=== PATIENT | female | born 1935 | race Caucasian/White ===

== ENCOUNTER → 2016-07-31 | Outpatient (CLI) | payer OTHER ==
[~2016-07-31] MED LIST: ACET-1256 PO; AMIO200T4 PO; ASPI-435 PO; ASPITAB44 PO; ATV/1 PO; B-COCAP20 PO; B-COCAP21 PO; CALC500C3; CALC500C3 PO; CALC667C4 PO; CARV12.52 PO; CHOLCAP5 PO; CRG125 PO; DOCU-94 PO; EPGI40M INJ; GUAI1LIQ PO; LEVO50TA PO; LEVO75TA PO; SYN50 PO; SYN75 PO
[2016-07-31 11:47] LABS: THYROID STIMULATING HORMONE 5.53 uIu/ml (0.300-4.500)
== END | disposition home or self-care (01) ==
LOC: C.LAB1850 10:14
PROVIDERS: ATTEND Internal Medicine Cardiovascular Disease
DX: I42.9 Cardiomyopathy, unspecified (principal); I48.0 Paroxysmal atrial fibrillation

== ENCOUNTER 2016-09-11 08:38 | Day surgery (SDC) | payer OTHER ==
[~2016-09-11] VITALS: Ht 171.5 cm; Wt 64.0 kg
[~2016-09-11 08:38] MED LIST changes: -ASPI-435 PO; -B-COCAP21 PO; -CALC500C3; -CALC500C3 PO; -CALC667C4 PO; -CARV12.52 PO; +CLINDAMYCIN 600 MG/54 ML D5W IV SCH; +D5W AND 1/4NSS 1,000 ML IV SCH; -DOCU-94 PO; -EPGI40M INJ; -GUAI1LIQ PO; -LEVO50TA PO; -LEVO75TA PO; -SYN75 PO
--- NOTE | 2016-09-11 08:54 | History and Physical ---
History & Physical Date of Service Sep 11, 2016. History & Physical History & Physical Chief Complaint Left forearm AVF, nonmaturing History of Present Illness The patient is a 81 year old female with multiple medical problems, She had a left forearm AV fistula placed. Large braches have developed competing for flow which were ligated in 06/22. Pt seen in f/u and continues to have nonmaturation of AVF, with area of stenosis noted on US. Fistulagram with intervention was recommended. Denies BOOGIE, fever, chills, chest pain, abd pain, N/ V, rest pain, claudication, other complaints. Allergies Amoxicillin (Verified Allergy, Severe, UNKOWN, 02/19/16) Clavulanic Acid (Verified Allergy, Severe, UNKOWN, 02/19/16) Nortriptyline (Verified Allergy, Severe, UNKNOWN, 02/19/16) Aloe (Verified Allergy, Intermediate, rash, 03/09/16) Amitriptyline (Verified Allergy, Unknown, unknown, 02/19/16) Amlodipine (Verified Allergy, Unknown, UNKNOWN, 03/09/16) Atorvastatin (Verified Allergy, Unknown, 02/19/16) Azathioprine (Verified Allergy, Unknown, 02/19/16) Barbiturates (Verified Allergy, Unknown, TAKES DARVOCET AT HOME, 02/19/16) Beta Adrenergic Blockers (Verified Allergy, Unknown, -, 02/19/16) Butalbital (Verified Allergy, Unknown, TAKES DARVOCET AT HOME, 02/19/16) Cefaclor (Verified Allergy, Unknown, RECEIVED ANCEF PREOP IN OR (08/05/12) , 02/19/16) Cefuroxime (Unverified Allergy, Unknown, UNKNOWN, 03/08/16) Cephalosporins (Verified Allergy, Unknown, 02/19/16) Chlorpheniramine (Verified Allergy, Unknown, 02/19/16) Cholestyramine (Verified Allergy, Unknown, 02/19/16) Ciprofloxacin (Verified Allergy, Unknown, redness and swelling, 02/19/16) Clonidine (Verified Allergy, Unknown, unknown, 02/19/16) Codeine (Verified Allergy, Unknown, TAKES DARVOCET AT HOME, 02/19/16) Dextromethorphan (Verified Allergy, Unknown, TAKES DARVOCET AT HOME, ) Diltiazem (Verified Allergy, Unknown, 02/19/16) Escitalopram (Verified Allergy, Unknown, 02/19/16) Estrogens (Verified Allergy, Unknown, 02/19/16) Felodipine (Verified Allergy, Unknown, 02/19/16) Ferrous Sulfate (Verified Allergy, Unknown, UNKNOWN, 03/09/16) Hydralazine (Verified Allergy, Unknown, unknown, 02/19/16) Hydrochlorothiazide (Verified Allergy, Unknown, 02/19/16) Hydrocodone (Verified Allergy, Unknown, TAKES DARVOCET AT HOME, 02/19/16) Hydrocortisone (Verified Allergy, Unknown, unknown, 02/19/16) Hydromorphone (Verified Allergy, Unknown, unknown, 02/19/16) Ibuprofen (Verified Allergy, Unknown, TAKES EC ASA AT HOME, 02/19/16) Indapamide (Verified Allergy, Unknown, 02/19/16) Ipratropium (Verified Allergy, Unknown, UNKNOWN, 03/09/16) Isosorbide (Verified Allergy, Unknown, UNKNOWN, 03/09/16) Ketoconazole (Verified Allergy, Unknown, unknown, 02/19/16) Lisinopril (Verified Allergy, Unknown, 02/19/16) Losartan (Verified Allergy, Unknown, 02/19/16) Mesalamine (Verified Allergy, Unknown, 02/19/16) Methyltestosterone (Verified Allergy, Unknown, 02/19/16) Metoprolol (Verified Allergy, Unknown, 02/19/16) NSAIDs (Verified Allergy, Unknown, though takes ecotrin at home, 03/09/16) Olsalazine (Verified Allergy, Unknown, 02/19/16) Phenylpropanolamine (Verified Allergy, Unknown, 02/19/16) Pilocarpine (Verified Allergy, Unknown, UNKNOWN, 03/09/16) Progestins (Verified Allergy, Unknown, 02/19/16) Propranolol (Verified Allergy, Unknown, UNKNOWN, 03/09/16) Propylene Glycol (Verified Allergy, Unknown, 02/19/16) Rabeprazole (Verified Allergy, Unknown, 02/19/16) Sertraline (Verified Allergy, Unknown, UNKNOWN, 03/09/16) Simvastatin (Verified Allergy, Unknown, 02/19/16) Sulfa Antibiotics (Verified Allergy, Unknown, UNKNOWN, 03/09/16) Sulfacetamide (Verified Allergy, Unknown, 02/19/16) Sulfur (Verified Allergy, Unknown, 02/19/16) Terazosin (Verified Allergy, Unknown, 02/19/16) Terfenadine (Verified Allergy, Unknown, 02/19/16) Torsemide (Unverified Allergy, Unknown, UNKNOWN, 03/08/16) Tramadol (Verified Allergy, Unknown, unknown, 02/19/16) Triamterene (Verified Allergy, Unknown, 02/19/16) Verapamil (Verified Allergy, Unknown, 02/19/16) Calcium Acetate (Verified Adverse Reaction, Mild, CONSTIPATION, 03/09/16) Uncoded Allergies: XANTHINE (Allergy, Unknown, TAKES DARVOCET AT HOME, 04/10/14) PT CLAIMS SHE CAN TOLERATE CAFFEINE Home Medications Scheduled Acetaminophen (Tylenol), 500 MG PO PRN Amiodarone Hcl (Cordarone), 200 MG PO DAILY Amlodipine Besylate (Norvasc), 2.5 MG PO DAILY Bumetanide (Bumetanide), 2 TABS PO BID Carvedilol (Coreg), 6.25 MG PO BID Cholecalciferol (Vitamin D3), 1 CAP PO DAILY Epoetin Jose R (Procrit), 40,000 UNIT INJ EVERY OTHER WEEK Levothyroxine Sodium (Synthroid), 25 MCG PO QAM Lorazepam (Ativan), 1 MG PO BID Scheduled PRN [id number]-Mdvpzkqx (Migraine Relief), 1 TAB PO UD PRN for MATTHEW Problem List Medical Problems: (1) Acute on chronic kidney failure (2) Anemia (3) Chest pain (4) Dysphagia (5) Hypertension (6) Secondary hyperparathyroidism of renal origin (7) Squamous cell carcinoma (8) Tonsil cancer Surgical / Medical History Hx Cardiac Surgery: No Hx Abdominal Surgery: Yes (cholecystectomy, appendectomy, spleenectomy, pancreas cyst, hernia) Hx Cancer Surgery: No Hx Thoracic Surgery: No Hx Orthopedic: Yes (BUNIONECTOMY) Hx Urinary Tract Surgery: No Past Medical/Surgical History: Hypertension, Kidney Disease Family History Cancer Gallbladder disease Hypertension Social History Smoking Status: Never Smoker Hx Tobacco Use In Past Year?: No Hx Alcohol Use - Type & Amnt: No Hx Substance Use -Type & Amnt: No Review of Systems Constitutional: + malaise, No chills, No fever Skin: No change in color Eyes: No visual changes ENMT: No sore throat Respiratory: no complaints Cardiovascular: + edema, No chest pain, No intermittent claudication, No palpitations, No syncope Gastrointestinal: No abdominal pain, No nausea, No vomiting Genitourinary - Female: No dysuria, No hematuria Neurologic: No headache, No numbness, No weakness Physical Exam Constitutional: General Apperance: well-nourished, well-developed, too thin Level of Distress: NAD, chronically ill Psychiatric: Mental Status: active & alert, normal mood, normal affect Orientation: oriented except where noted, to time, to place, to person Memory: recent memory normal, remote memory normal Head: normocephalic, atraumatic Eyes: EOM: EOMI ENMT: normal ENT inspection, hearing grossly normal Neck: supple, trachea midline Lungs: Respiratory effort: no dyspnea Auscultation: no wheezing, no rhonchi, Cardiovascular: Apical Impulse: not displaced Heart Auscultation: RRR, no rubs, no gallops, murmur Peripheral Pulses: Pulses: full and equal, in all extremities except if noted Bruits: none appreciated Carotid Pulse: normal on the left, normal on the right Brachial Pulses: normal on the left, normal on the right Radial Pulse: normal on the left, normal on the right Femoral Pulse: normal on the left, normal on the right Posterior Tibialis Pulse: decreased on the left, decreased on the right Dorsalis Pedis Pulse: decreased on the left, decreased on the right Abdomen: Bowel Sounds: normal Inspection & Palpation: soft, non-distended, no tenderness, guarding & rebound Musculoskeletal: normal strength (5/5 throughout), normal tone Extremities: Upper Right: no cyanosis, no edema, no varicosities Upper Left: no cyanosis, no edema, no varicosities Lower Right: no cyanosis, no varicosities, edema (trace) Lower Left: no cyanosis, no varicosities, no palpable cord, edema (trace). fistula with + thrill/bruit Neurologic: Cranial Nerves: grossly intact Sensation: grossly intact A&P: Vascular Con v2 Assessment and Plan ASSESSMENT and PLAN: Imp: Malfunctioning/nonmaturing fistula Plan: Patient is admitted for L forearm AV fistulagram with intervention. I have discussed the risks options and benefits of the procedure with the patient. The patient understands the risks options and benefits and agrees to the procedure.
[2016-09-11] MEDS ORDERED: CALC667C4 PO (09:26)
[2016-09-11] MEDS ORDERED: DOCU-94 PO (09:26)
[2016-09-11] MEDS ORDERED: ASPI-435 PO (09:26)
[2016-09-11] MEDS ORDERED: CALC500C3 (09:26)
[2016-09-11 09:29] VITALS: BP 130/61; PULSE 63; TEMP 36.9; O2SAT 97; Ht 171.5 cm; Wt 64.0 kg
--- NOTE | 2016-09-11 10:42 | History and Physical ---
History & Physical Date of Service Sep 11, 2016. History & Physical Left forearm fistula with malfunction History of Present Illness The patient is a 81 year old female with multiple medical problems, She had a left forearm fistula placed. She had ligation of side branches and still is not running well. Denies BOOGIE, fever, chills, chest pain, abd pain, N/V, rest pain, claudication, other complaints. Allergies Amoxicillin (Verified Allergy, Severe, UNKOWN, 02/19/16) Clavulanic Acid (Verified Allergy, Severe, UNKOWN, 02/19/16) Nortriptyline (Verified Allergy, Severe, UNKNOWN, 02/19/16) Aloe (Verified Allergy, Intermediate, rash, 03/09/16) Amitriptyline (Verified Allergy, Unknown, unknown, 02/19/16) Amlodipine (Verified Allergy, Unknown, UNKNOWN, 03/09/16) Atorvastatin (Verified Allergy, Unknown, 02/19/16) Azathioprine (Verified Allergy, Unknown, 02/19/16) Barbiturates (Verified Allergy, Unknown, TAKES DARVOCET AT HOME, 02/19/16) Beta Adrenergic Blockers (Verified Allergy, Unknown, -, 02/19/16) Butalbital (Verified Allergy, Unknown, TAKES DARVOCET AT HOME, 02/19/16) Cefaclor (Verified Allergy, Unknown, RECEIVED ANCEF PREOP IN OR (08/05/12) , 02/19/16) Cefuroxime (Unverified Allergy, Unknown, UNKNOWN, 03/08/16) Cephalosporins (Verified Allergy, Unknown, 02/19/16) Chlorpheniramine (Verified Allergy, Unknown, 02/19/16) Cholestyramine (Verified Allergy, Unknown, 02/19/16) Ciprofloxacin (Verified Allergy, Unknown, redness and swelling, 02/19/16) Clonidine (Verified Allergy, Unknown, unknown, 02/19/16) Codeine (Verified Allergy, Unknown, TAKES DARVOCET AT HOME, 02/19/16) Dextromethorphan (Verified Allergy, Unknown, TAKES DARVOCET AT HOME, ) Diltiazem (Verified Allergy, Unknown, 02/19/16) Escitalopram (Verified Allergy, Unknown, 02/19/16) Estrogens (Verified Allergy, Unknown, 02/19/16) Felodipine (Verified Allergy, Unknown, 02/19/16) Ferrous Sulfate (Verified Allergy, Unknown, UNKNOWN, 03/09/16) Hydralazine (Verified Allergy, Unknown, unknown, 02/19/16) Hydrochlorothiazide (Verified Allergy, Unknown, 02/19/16) Hydrocodone (Verified Allergy, Unknown, TAKES DARVOCET AT HOME, 02/19/16) Hydrocortisone (Verified Allergy, Unknown, unknown, 02/19/16) Hydromorphone (Verified Allergy, Unknown, unknown, 02/19/16) Ibuprofen (Verified Allergy, Unknown, TAKES EC ASA AT HOME, 02/19/16) Indapamide (Verified Allergy, Unknown, 02/19/16) Ipratropium (Verified Allergy, Unknown, UNKNOWN, 03/09/16) Isosorbide (Verified Allergy, Unknown, UNKNOWN, 03/09/16) Ketoconazole (Verified Allergy, Unknown, unknown, 02/19/16) Lisinopril (Verified Allergy, Unknown, 02/19/16) Losartan (Verified Allergy, Unknown, 02/19/16) Mesalamine (Verified Allergy, Unknown, 02/19/16) Methyltestosterone (Verified Allergy, Unknown, 02/19/16) Metoprolol (Verified Allergy, Unknown, 02/19/16) NSAIDs (Verified Allergy, Unknown, though takes ecotrin at home, 03/09/16) Olsalazine (Verified Allergy, Unknown, 02/19/16) Phenylpropanolamine (Verified Allergy, Unknown, 02/19/16) Pilocarpine (Verified Allergy, Unknown, UNKNOWN, 03/09/16) Progestins (Verified Allergy, Unknown, 02/19/16) Propranolol (Verified Allergy, Unknown, UNKNOWN, 03/09/16) Propylene Glycol (Verified Allergy, Unknown, 02/19/16) Rabeprazole (Verified Allergy, Unknown, 02/19/16) Sertraline (Verified Allergy, Unknown, UNKNOWN, 03/09/16) Simvastatin (Verified Allergy, Unknown, 02/19/16) Sulfa Antibiotics (Verified Allergy, Unknown, UNKNOWN, 03/09/16) Sulfacetamide (Verified Allergy, Unknown, 02/19/16) Sulfur (Verified Allergy, Unknown, 02/19/16) Terazosin (Verified Allergy, Unknown, 02/19/16) Terfenadine (Verified Allergy, Unknown, 02/19/16) Torsemide (Unverified Allergy, Unknown, UNKNOWN, 03/08/16) Tramadol (Verified Allergy, Unknown, unknown, 02/19/16) Triamterene (Verified Allergy, Unknown, 02/19/16) Verapamil (Verified Allergy, Unknown, 02/19/16) Calcium Acetate (Verified Adverse Reaction, Mild, CONSTIPATION, 03/09/16) Uncoded Allergies: XANTHINE (Allergy, Unknown, TAKES DARVOCET AT HOME, 04/10/14) PT CLAIMS SHE CAN TOLERATE CAFFEINE Home Medications Scheduled Acetaminophen (Tylenol), 500 MG PO PRN Amiodarone Hcl (Cordarone), 200 MG PO DAILY Amlodipine Besylate (Norvasc), 2.5 MG PO DAILY Bumetanide (Bumetanide), 2 TABS PO BID Carvedilol (Coreg), 6.25 MG PO BID Cholecalciferol (Vitamin D3), 1 CAP PO DAILY Epoetin Jose R (Procrit), 40,000 UNIT INJ EVERY OTHER WEEK Levothyroxine Sodium (Synthroid), 25 MCG PO QAM Lorazepam (Ativan), 1 MG PO BID Scheduled PRN [id number]-[id number] (Migraine Relief), 1 TAB PO UD PRN for MATTHEW Problem List Medical Problems: (1) Acute on chronic kidney failure (2) Anemia (3) Chest pain (4) Dysphagia (5) Hypertension (6) Secondary hyperparathyroidism of renal origin (7) Squamous cell carcinoma (8) Tonsil cancer Surgical / Medical History Hx Cardiac Surgery: No Hx Abdominal Surgery: Yes (cholecystectomy, appendectomy, spleenectomy, pancreas cyst, hernia) Hx Cancer Surgery: No Hx Thoracic Surgery: No Hx Orthopedic: Yes (BUNIONECTOMY) Hx Urinary Tract Surgery: No Past Medical/Surgical History: Hypertension, Kidney Disease Family History Cancer Gallbladder disease Hypertension Social History Smoking Status: Never Smoker Hx Tobacco Use In Past Year?: No Hx Alcohol Use - Type & Amnt: No Hx Substance Use -Type & Amnt: No Review of Systems Constitutional: + malaise, No chills, No fever Skin: No change in color Eyes: No visual changes ENMT: No sore throat Respiratory: no complaints Cardiovascular: + edema, No chest pain, No intermittent claudication, No palpitations, No syncope Gastrointestinal: No abdominal pain, No nausea, No vomiting Genitourinary - Female: No dysuria, No hematuria Neurologic: No headache, No numbness, No weakness Physical Exam Constitutional: General Apperance: well-nourished, well-developed, too thin Level of Distress: NAD, chronically ill Psychiatric: Mental Status: active & alert, normal mood, normal affect Orientation: oriented except where noted, to time, to place, to person Memory: recent memory normal, remote memory normal Head: normocephalic, atraumatic Eyes: EOM: EOMI ENMT: normal ENT inspection, hearing grossly normal Neck: supple, trachea midline Lungs: Respiratory effort: no dyspnea Auscultation: no wheezing, no rhonchi, Cardiovascular: Apical Impulse: not displaced Heart Auscultation: RRR, no rubs, no gallops, murmur Peripheral Pulses: Pulses: full and equal, in all extremities except if noted Bruits: none appreciated Carotid Pulse: normal on the left, normal on the right Brachial Pulses: normal on the left, normal on the right Radial Pulse: normal on the left, normal on the right Femoral Pulse: normal on the left, normal on the right Posterior Tibialis Pulse: decreased on the left, decreased on the right Dorsalis Pedis Pulse: decreased on the left, decreased on the right Abdomen: Bowel Sounds: normal Inspection & Palpation: soft, non-distended, no tenderness, guarding & rebound Musculoskeletal: normal strength (5/5 throughout), normal tone Extremities: Upper Right: no cyanosis, no edema, no varicosities Upper Left: no cyanosis, no edema, no varicosities Lower Right: no cyanosis, no varicosities, edema (trace) Lower Left: no cyanosis, no varicosities, no palpable cord, edema (trace). fistula with good thrill Neurologic: Cranial Nerves: grossly intact Sensation: grossly intact A&P: Vascular Con v2 Assessment and Plan ASSESSMENT and PLAN: Imp: Malfunctioning fistula Plan: Patient is admitted for a fistulogram with possible intervention. I have discussed the risks options and benefits of the procedure with the patient. The patient understands the risks options and benefits and agrees to the procedure.
--- NOTE | 2016-09-11 11:13 | History & Physical Bridge Note ---
H&P Re-Evaluation Bridge Note: I have examined the patient, reviewed the History & Physical and in the interval since the performance of the History & Physical I have noted the following changes of clinical significance: No changes noted
--- NOTE | 2016-09-11 11:14 | Procedure Note ---
Pre-Mod Sedation Assessment General Date of Moderate Sedation: Sep 11, 2016. Vital Signs: Vital Signs Past 12 Hours Date Time Temp Pulse Resp B/P Pulse Ox O2 Delivery O2 Flow Rate FiO2 09/11/16 09:29 36.9 63 20 130/61 97 Room Air Pre-Sedation Airway Assessment Oral Cavity: WNL Smoking Status: Never Smoker Mallampati Classification: Class I ASA Classification: Class II Notes The planned sedation has been discussed with the patient and consent obtained. I have identified the patient, determined the appropriateness of sedation and have assessed the patient immediately prior to the procedure. All medicine(s) and interventions are by my order.
[2016-09-11] MEDS ORDERED: FENTANYL CITRATE INJ 50 MCG/1 ML 2 ML VIAL ONE (12:02)
[2016-09-11] MEDS ORDERED: OPTIRAY 300 IV ONE (12:41)
[2016-09-11] MEDS ORDERED: LIDOCAINE HCL 1% 20 ML VIAL INJ ONE (12:48)
--- NOTE | 2016-09-11 12:49 | [facility] Post Operative Brief Note ---
Immediate Operative Summary Operative Date Sep 11, 2016. Pre-Operative Diagnosis Malfunctioning Fistula Post-Operative Diagnosis Same Procedure(s) Performed Left upper Extremity Arteriogram Surgeon Dr. Alonso [employer] Surgeon(s) Dr. Caputo Estimated Blood Loss 3 Findings Occluded fistula Specimens None Anesthesia Local Complication(s) None Disposition
--- NOTE | 2016-09-11 12:50 | Discharge Instructions ---
Discharge Instructions Date of Service Sep 11, 2016. Visit Reason for Visit: End Stage Renal Disease -On Hemodialysis Discharge Discharge Diagnosis / Problem: Malfunctioning fistula Discharge Goals Goal(s): Diagnostic testing Activity Recommendations Activity Limitations: per Instructions/Follow-up section Anesthesia . Post Anesthesia Instructions: If you have had General Anesthesia or IV Sedation: * Do not drive today. * Resume driving when surgeon permits. * Do not make important decisions or sign legal documents today. * Call surgeon for: 1. Temperature elevations greater than 101 degrees F. 2. Uncontrollable pain. 3. Excessive bleeding. 4. Persistent nausea and vomiting. 5. Medication intolerance (nausea, vomiting or rash). * For nausea and vomiting use only clear liquids such as: tea, soda, bouillon until nausea subsides, then gradually increase diet as tolerated. * If you have any concerns or questions, call your surgeon's office. If physician is unavailable and it is an emergency, call 911 or go to the nearest emergency room. . Instructions / Follow-Up Instructions / Follow-Up Call [phone] to schedule a follow up appointment if one not already scheduled. SPECIAL CARE INSTRUCTIONS: Medications: * Continue to take your medications as directed. If you have been given a prescription for Plavix, please fill it immediately and take as directed. Incision Care: * Your puncture site may have some bruising and minor swelling for about one week. * You will have a small dressing covering your puncture site. You may remove the dressing after 24 hours and shower. You may let the warm soapy water run over it, but be sure to dry the puncture site well and keep it dry. * DO NOT IMMERSE THE INCISION IN A TUB/POOL/etc. UNTIL HEALED. * Puncture sites should be kept covered with a band-aid until it begins to heal. Restrictions: * Depending on whether you leg or arm was punctured to access the arteries, you will be required to lay flat, hold your arm still, or both, for about 4 hours after the procedure to prevent bleeding. * Limit your activity for the first 48 hours. You may walk and go up and down steps. Avoid excessive bending or movement at the puncture site. Possible Complications: * Excessive Swelling - after blood flow is improved you may notice increased swelling in the lower legs. This is a normal response. This usually depends on the amount of blockages in the leg, how long they have been there prior to your procedure and how much blood flow was restored. Elevating your legs will help to improve this. Please notify our office ([phone] ) if the swelling does not go away after lying in bed overnight. * Infection/Drainage/Bleeding - Drainage or bleeding from the puncture site should be minimal. If you have excessive bleeding or drainage, call our office ([phone]) right away. * Pain - You may experience some mild pain or soreness at your puncture site. If your pain does not improve, please contact our office ([phone]). Call your doctor and seek emergent treatment if you develop: * Temperature above 101 degrees * Any fever or chills * Any redness or purulent drainage from the puncture site * Any new dusky/blue colored toes or feet with coolness or sharp or aching pain. SKIN IRRITATION: * You may experience some redness and/or swelling in the area where radiation was administered. If any skin irritation occurs, please contact your family physician. FOLLOW UP VISIT: Keep any scheduled doctor appointments. Diet Recommendations Recommended Home Diet: resume previous diet Procedures Procedures Performed: Left upper Extremity Arteriogram Pending Studies Studies pending at discharge: no Medical Emergencies . Who to Call and When: Medical Emergencies: If at any time you feel your situation is an emergency, please call 911 immediately. . Non-Emergent Contact Non-Emergency issues call your: Surgeon . . "Provider Documentation" section prepared by Duke Alonso.
[2016-09-11 13:10] VITALS: BP 137/60; PULSE 68; TEMP 37.4; O2SAT 95
[2016-09-11 13:40] VITALS: BP 130/61; PULSE 63; TEMP 37.4; O2SAT 91
[2016-09-11 14:10] VITALS: BP 119/49; PULSE 64; TEMP 37.4; O2SAT 92
--- NOTE | 2016-09-11 14:52 | DIAGNOSTIC IMAGING REPORT ---
DATE OF PROCEDURE: 09/11/2016 PREOPERATIVE DIAGNOSIS: Malfunctioning left upper extremity AV fistula. POSTOPERATIVE DIAGNOSIS: Same. PROCEDURE PERFORMED: Left upper extremity arteriogram. SURGEON: Dr. Alonso. PEDIATRICIAN/MEDICAL DOCTOR: Thiago Caputo MD ANESTHESIA: Local anesthesia only. ESTIMATED BLOOD LOSS: 2 mL. INDICATIONS: This is a 81-year-old female who has had a previous left upper extremity radiocephalic AV fistula. Unfortunately, this fistula was not able to be used. It did not mature. There was no thrill or bruit in the fistula. Arteriogram was indicated to evaluate the vasculature of the left arm. PROCEDURE IN DETAIL: The patient was brought to the endo procedure room and placed in the supine position. Left upper extremity was prepped and draped in the normal sterile fashion. A timeout was performed and all parties agreed to correct patient and procedure to be performed. The brachial artery was easily palpable just below the skin at the level of the antecubital fossa. This was accessed on the first attempt with a micropuncture needle. This was upsized to micropuncture sheath over the wire. A left upper extremity arteriogram was then performed. This showed a patent ulnar artery with stenosis at the proximal aspect. There was a large collateral which traveled down the lateral portion of the arm. The radial artery filled late. There was also a large interosseous branch. There was no venous flow at all noted. The fistula was completely thrombosed. Given that there were no intervention options, we elected to terminate the procedure at this point. The patient will need a repeat AV fistula creation. The sheaths, wires and catheters were all removed. Pressure was held on the access site. Unfortunately, she did develop a small left arm hematoma just distal to the access site. She had no arm complaints or symptoms. This area was soft. Pressure was held and the hematoma decreased in size. She was transferred to the recovery room in satisfactory condition. I was present and scurbbed for the entire procedure. [facility]
[2016-09-11 15:10] VITALS: BP 113/55; PULSE 59; TEMP 37.3; O2SAT 93
[2016-10-13] MEDS ORDERED: SYN50 PO (15:03)
[2016-10-13] MEDS ORDERED: CRG125 PO (15:03)
[2016-10-13] MEDS ORDERED: SYN75 PO (15:03)
[2016-12-11] MEDS ORDERED: CALC500C3 PO (08:04)
== END 2016-09-11 15:30 | disposition home or self-care (01) ==
LOC: C.ACU 08:38
PROVIDERS: ATTEND Surgery Vascular Surgery
DX: T82.598A Other mechanical complication of other cardiac and vascular devices and implants, initial encounter (principal); Y83.2 Surgical operation with anastomosis, bypass or graft as the cause of abnormal reaction of the patient, or of later complication, without mention of misadventure at the time of the procedure; I12.9 Hypertensive chronic kidney disease with stage 1 through stage 4 chronic kidney disease, or unspecified chronic kidney disease; N18.9 Chronic kidney disease, unspecified; I97.638 Postprocedural hematoma of a circulatory system organ or structure following other circulatory system procedure; Z79.899 Other long term (current) drug therapy

== ENCOUNTER 2016-10-03 16:27 | Inpatient (IN) | payer OTHER ==
[~2016-10-03] VITALS: Ht 172.7 cm; Wt 64.1 kg
[~2016-10-03 16:27] MED LIST changes: +ASPI-435 PO; +CALC500C3; +CALC667C4 PO; -CLINDAMYCIN 600 MG/54 ML D5W IV SCH; -D5W AND 1/4NSS 1,000 ML IV SCH; +DOCU-94 PO
[2016-10-03 17:56] LABS: BASO % 0.3 %; BASO ABS # 0.02 K/uL (0-0.2); COMPLETE YES; EOS % 1.1 %; HEMATOCRIT 33.4 % (37-47); IG% 0.3 %; LYMPH % 14.7 %; LYMPH ABS # 0.93 K/uL (1.2-3.4); MEAN CELL VOLUME 87.7 fL (80-100); MEAN CORPUSCULAR HEMOGLOBIN 29.1 pg (25-34); MEAN CORPUSCULAR HGB CONC 33.2 g/dl (32-36); MONO % 18.9 %; NEUT % 64.7 %; PLATELET COUNT 433 K/uL (130-400); RED BLOOD COUNT 3.81 M/uL (4.2-5.4); WHITE BLOOD COUNT 6.31 K/uL (4.8-10.8)
--- NOTE | 2016-10-03 18:11 | DIAGNOSTIC IMAGING REPORT ---
CHEST 2 VIEWS ROUTINE CLINICAL HISTORY: cough eval for pnea dyspnea COMPARISON STUDY: 03/21/2016 FINDINGS: Bilateral pleural effusions. PermCath in superior vena cava. Mid and upper lungs are considered clear. IMPRESSION: Bilateral pleural effusions. Study is otherwise unremarkable. Electronically signed by: Mina Dickson M.D. 10/03/2016 6:10 PM Dictated Date/Time: 10/03/2016 6:09 PM
[2016-10-03] MEDS ORDERED: GUAI1LIQ PO (18:12)
[2016-10-03] MEDS ORDERED: EPGI40M INJ (18:12)
[2016-10-03] MEDS ORDERED: B-COCAP21 PO (18:12)
[2016-10-03 18:42] LABS: BUN/CREATININE RATIO 5.3 (10-20); CALCIUM 9.8 mg/dl (8.5-10.1); CREATININE 5.9 mg/dl (0.60-1.20); POTASSIUM 4.5 mmol/L (3.5-5.1)
[2016-10-03 19:44] LABS: INR 1.1 (0.9-1.1); PARTIAL THROMBOPLASTIN RATIO 1.3; PROTHROMBIN TIME (PATIENT) 12.1 SECONDS (9.0-12.0)
[2016-10-03] MEDS ORDERED: ZOLPIDEM TARTRATE 5 MG TAB PO PRN (21:15)
[2016-10-03] MEDS ORDERED: ONDANSETRON INJ 2 MG/ML 2 ML VIAL IV PRN (21:15)
[2016-10-03 21:50] LABS: CKMB/CK RATIO 1.7 (0-3.0)
--- NOTE | 2016-10-03 22:25 | History and Physical ---
History & Physical Date & Time of Service: Oct 03, 2016 at 22:26 Chief Complaint: Chest Tightness, Shallow Breathing, Dry Cough Primary Care Physician: Jose Guardado M.D. History of Present Illness Source: patient The patient is a 81-year-old female who presents to the emergency department with worsening chest tightness and shortness of breath, that initially began a few weeks ago, but has worsened in particular over the past 2 days along with the development of a dry cough and difficulty lying flat. She does have a history of congestive heart failure, acute on chronic kidney failure, and undergoes dialysis on Mondays and Fridays. She has not had any recent travel, dietary changes or sick exposures. She does feel generally weakened and fatigued. She does see Dr. Solorzano as her post manager, and she has undergone a thoracentesis in the past by Dr. Manley. 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 Radiation completed 01/10/2014 received 7200 cGy Status: Resolved Family History Cancer Gallbladder disease Hypertension Social History Smoking Status: Never Smoker Smokeless Tobacco Use: No Alcohol Use: none Drug Use: none Marital Status: Housing status: lives alone Occupational Status: retired Immunizations History of Influenza Vaccine: Yes History of Tetanus Vaccine?: utd History of Pneumococcal: Yes History of Hepatitis B Vaccine: Unknown Multi-Drug Resistant Organisms History of MDRO: No Allergies Coded Allergies: Amoxicillin (Verified Allergy, Severe, UNKOWN, 10/03/16) Clavulanic Acid (Verified Allergy, Severe, UNKOWN, 10/03/16) Nortriptyline (Verified Allergy, Severe, UNKNOWN, 10/03/16) Aloe (Verified Allergy, Intermediate, rash, 10/03/16) Amitriptyline (Verified Allergy, Unknown, unknown, 10/03/16) Amlodipine (Verified Allergy, Unknown, UNKNOWN, 10/03/16) Atorvastatin (Verified Allergy, Unknown, 10/03/16) Azathioprine (Verified Allergy, Unknown, 10/03/16) Barbiturates (Verified Allergy, Unknown, TAKES DARVOCET AT HOME, 10/03/16) Beta Adrenergic Blockers (Verified Allergy, Unknown, -, 10/03/16) Butalbital (Verified Allergy, Unknown, TAKES DARVOCET AT HOME, 10/03/16) Cefaclor (Verified Allergy, Unknown, RECEIVED ANCEF PREOP IN OR (08/05/12) , 10/03/16) Cefuroxime (Unverified Allergy, Unknown, UNKNOWN, 10/03/16) Cephalosporins (Verified Allergy, Unknown, 10/03/16) Chlorpheniramine (Verified Allergy, Unknown, 10/03/16) Cholestyramine (Verified Allergy, Unknown, 10/03/16) Ciprofloxacin (Verified Allergy, Unknown, redness and swelling, 10/03/16) Clonidine (Verified Allergy, Unknown, unknown, 10/03/16) Codeine (Verified Allergy, Unknown, TAKES DARVOCET AT HOME, 10/03/16) Dextromethorphan (Verified Allergy, Unknown, TAKES DARVOCET AT HOME, ) Diltiazem (Verified Allergy, Unknown, 10/03/16) Escitalopram (Verified Allergy, Unknown, 10/03/16) Estrogens (Verified Allergy, Unknown, 10/03/16) Felodipine (Verified Allergy, Unknown, 10/03/16) Ferrous Sulfate (Verified Allergy, Unknown, UNKNOWN, 10/03/16) Hydralazine (Verified Allergy, Unknown, unknown, 10/03/16) Hydrochlorothiazide (Verified Allergy, Unknown, 10/03/16) Hydrocodone (Verified Allergy, Unknown, TAKES DARVOCET AT HOME, 10/03/16) Hydrocortisone (Verified Allergy, Unknown, unknown, 10/03/16) Hydromorphone (Verified Allergy, Unknown, unknown, 10/03/16) Ibuprofen (Verified Allergy, Unknown, TAKES EC ASA AT HOME, 10/03/16) Indapamide (Verified Allergy, Unknown, 10/03/16) Ipratropium (Verified Allergy, Unknown, UNKNOWN, 10/03/16) Isosorbide Nitrate (Verified Allergy, Unknown, UNKNOWN, 10/03/16) Ketoconazole (Verified Allergy, Unknown, unknown, 10/03/16) Lisinopril (Verified Allergy, Unknown, 10/03/16) Losartan (Verified Allergy, Unknown, 10/03/16) Mesalamine (Verified Allergy, Unknown, 10/03/16) Methyltestosterone (Verified Allergy, Unknown, 10/03/16) Metoprolol (Verified Allergy, Unknown, 10/03/16) NSAIDs (Verified Allergy, Unknown, though takes ecotrin at home, 10/03/16) Olsalazine (Verified Allergy, Unknown, 10/03/16) Phenylpropanolamine (Verified Allergy, Unknown, 10/03/16) Pilocarpine (Verified Allergy, Unknown, UNKNOWN, 10/03/16) Progestins (Verified Allergy, Unknown, 10/03/16) Propranolol (Verified Allergy, Unknown, UNKNOWN, 10/03/16) Propylene Glycol (Verified Allergy, Unknown, 10/03/16) Rabeprazole (Verified Allergy, Unknown, 10/03/16) Sertraline (Verified Allergy, Unknown, UNKNOWN, 10/03/16) Simvastatin (Verified Allergy, Unknown, 10/03/16) Sulfa Antibiotics (Verified Allergy, Unknown, UNKNOWN, 10/03/16) Sulfacetamide (Verified Allergy, Unknown, 10/03/16) Sulfur (Verified Allergy, Unknown, 10/03/16) Terazosin (Verified Allergy, Unknown, 10/03/16) Terfenadine (Verified Allergy, Unknown, 10/03/16) Torsemide (Unverified Allergy, Unknown, UNKNOWN, 10/03/16) Tramadol (Verified Allergy, Unknown, unknown, 10/03/16) Triamterene (Verified Allergy, Unknown, 10/03/16) Verapamil (Verified Allergy, Unknown, 10/03/16) Calcium Acetate (Verified Adverse Reaction, Mild, CONSTIPATION, 10/03/16) Uncoded Allergies: XANTHINE (Allergy, Unknown, TAKES DARVOCET AT HOME, 04/10/14) PT CLAIMS SHE CAN TOLERATE CAFFEINE Home Medications Scheduled Amiodarone Hcl (Cordarone), 200 MG PO QAM Aspirin (Aspirin 81), 81 MG PO QAM B-Complex W/ C & Folic Acid (Rampart Caps), 2 CAP PO QAM Calcium Acetate (Phoslo 667 Mg), 2 CAP PO TID AFTER MEALS Cholecalciferol (Vitamin D3), 1 CAP PO QAM Docusate Sodium (Colace), 1 CAP PO QPM Scheduled PRN Acetaminophen (Tylenol), 500 MG PO DIRECTED PRN for Pain Mnvkjnc-Vvpoygmfdctyh-Qfojhseo (Migraine Relief), 1 TAB PO UD PRN for Migraine Epoetin Jose R (Procrit), 40,000 UNITS INJ DIRECTED PRN for DIALYSIS Guaifenesin (Robitussin Mucus+Chest Co), 1 DOSE PO DIRECTED PRN for Cough Lorazepam (Ativan), 1 MG PO TID PRN for Anxiety/Agitation Review of Systems The patient denies palpitations, vision change, hearing change, sore throat, fevers, chills, sweats, nausea, vomiting, abdominal pain, pelvic pain, blood in urine or stool, dysuria, urinary frequency or urgency, lightheadedness, dizziness, headache, memory loss, rash, abnormal bruising or bleeding, imbalance , focal weakness, numbness or tingling in arms or legs, arthralgias or myalgias , back or neck pain, night sweats, or allergy symptoms. The review of systems is otherwise negative other than for that already noted above, and at least 10 systems have been reviewed. Physical Exam Vital Signs Date Time Temp Pulse Resp B/P Pulse Ox O2 Delivery O2 Flow Rate FiO2 10/03/16 21:53 62 23 128/74 96 Room Air 10/03/16 20:08 65 10/03/16 19:53 64 16 148/93 96 Room Air 10/03/16 18:25 62 16 142/102 95 Room Air 10/03/16 17:55 95 Room Air 10/03/16 16:31 36.5 62 20 125/77 96 Room Air 10/03/16 16:31 96 Room Air The patient is awake, well-developed and adequately nourished, alert and oriented 3, normocephalic and atraumatic, lying in bed and in no acute distress. HEENT--PERRL, EOMI, mucous membranes and oropharynx dry. Neck--supple, no JVD or bruits, thyroid normal, trachea midline, no adenopathy. Heart--normal S1 and S2, no extra beats, no murmurs, rubs or gallops. Lungs--decreased breath sounds at the bases bilaterally, no respiratory distress , no accessory muscle use. Abdomen--normal bowel sounds and soft, nontender and nondistended, no hernias or masses, no organomegaly. Extremities--no cyanosis, clubbing. Trace bilateral pretibial pitting Edema. There are good distal pulses b/l. Dermatologic--normal skin turgor, normal color, warm and dry, no abnormal lymph nodes, no rash. Neurologic--cranial nerves II through XII grossly intact, motor and sensory examination normal. Rheumatologic--normal range of motion, nontender, muscles and joints. Psychiatric--normal affect. Diagnostics Laboratory Results Results Past 24 Hours Test 10/03/16 17:10 10/03/16 18:50 Range/Units White Blood Count 6.31 4.8-10.8 K/uL Red Blood Count 3.81 4.2-5.4 M/uL Hemoglobin 11.1 12.0-16.0 g/dL Hematocrit 33.4 37-47 % Mean Corpuscular Volume 87.7 80-100 fL Mean Corpuscular Hemoglobin 29.1 25-34 pg Mean Corpuscular Hemoglobin Concent 33.2 32-36 g/dl Platelet Count 433 130-400 K/uL Mean Platelet Volume 10.0 7.4-10.4 fL Neutrophils (%) (Auto) 64.7 % Lymphocytes (%) (Auto) 14.7 % Monocytes (%) (Auto) 18.9 % Eosinophils (%) (Auto) 1.1 % Basophils (%) (Auto) 0.3 % Neutrophils # (Auto) 4.08 1.4-6.5 K/uL Lymphocytes # (Auto) 0.93 1.2-3.4 K/uL Monocytes # (Auto) 1.19 0.11-0.59 K/uL Eosinophils # (Auto) 0.07 0-0.5 K/uL Basophils # (Auto) 0.02 0-0.2 K/uL RDW Standard Deviation 56.1 36.4-46.3 fL RDW Coefficient of Variation 17.4 11.5-14.5 % Immature Granulocyte % (Auto) 0.3 % Immature Granulocyte # (Auto) 0.02 0.00-0.02 K/uL Sodium Level 130 136-145 mmol/L Potassium Level 4.5 3.5-5.1 mmol/L Chloride Level 90 98-107 mmol/L Carbon Dioxide Level 27 21-32 mmol/L Anion Gap 13.0 3-11 mmol/L Blood Urea Nitrogen 31 7-18 mg/dl Creatinine 5.90 0.60-1.20 mg/dl Est Creatinine Clear Calc Drug Dose 7.7 ml/min Estimated GFR () 7.3 Estimated GFR (Non- 6.3 BUN/Creatinine Ratio 5.3 10-20 Random Glucose 92 70-99 mg/dl Calcium Level 9.8 8.5-10.1 mg/dl Total Bilirubin 0.6 0.2-1 mg/dl Direct Bilirubin 0.1 0-0.2 mg/dl Aspartate Amino Transf (AST/SGOT) 15 15-37 U/L Alanine Aminotransferase (ALT/SGPT) 22 12-78 U/L Alkaline Phosphatase 71 45-117 U/L Total Creatine Kinase 64 26-192 U/L Creatine Kinase MB 1.1 0.5-3.6 ng/ml Creatine Kinase MB Ratio 1.7 0-3.0 Troponin I 0.021 0-0.045 ng/ml Total Protein 7.2 6.4-8.2 gm/dl Albumin 3.3 3.4-5.0 gm/dl Prothrombin Time 12.1 9.0-12.0 SECONDS Prothromb Time International Ratio 1.1 0.9-1.1 Activated Partial Thromboplast Time 34.3 21.0-31.0 SECONDS Partial Thromboplastin Ratio 1.3 Microbiology Results 10/03/16 Blood Culture, Received Pending 10/03/16 Blood Culture, Received Pending EKG Patient Name: SHANNON ABAD Unit Number: [id number] Dictated: 10/03/161808 Transcribed: 10/03/161808 MS Printed Date/Time: [~ rep prt dt]/[~ rep prt tm] [~ rep ct labl] - [~ rep ct ivnm] [facility] [place] [address] Dictated: 10/03/161808 Transcribed: 10/03/161808 MS Printed Date/Time: [~ rep prt dt]/[~ rep prt tm] [~ rep ct labl] - [~ rep ct ivnm] CHEST 2 VIEWS ROUTINE CLINICAL HISTORY: cough eval for pnea dyspnea COMPARISON STUDY: 03/21/2016 FINDINGS: Bilateral pleural effusions. PermCath in superior vena cava. Mid and upper lungs are considered clear. IMPRESSION: Bilateral pleural effusions. Study is otherwise unremarkable. Electronically signed by: Mina Dickson M.D. 10/03/2016 6:10 PM Dictated Date/Time: 10/03/2016 6:09 PM The status of this report is Signed. Draft = Not yet reviewed or approved by Radiologist. Signed = Reviewed and approved by Radiologist. <AttendingPhy></AttendingPhy> <FamilyPhy>Jose Guardado M.D.</FamilyPhy> < PrimaryPhy>Jose Guardado M.D.</PrimaryPhy> <UnitNumber>[id number]</UnitNumber> <VisitNumber>[id number]</VisitNumber> <PatientName>SHANNON ABAD</PatientName > <DateOfBirth>1935</DateOfBirth> <Location>[facility]</Location> <ServiceDate> 10/03/16</ServiceDate> <MNE>ESINDI</MNE> <OrderingPhy>Osorio Ludwig MD</ OrderingPhy> <OrderingPhyMNE>f rep ord dr rebolledo</OrderingPhyMNE> <DictatingPhyMNE> f rep dict dr rebolledo</DictatingPhyMNE> <CCListMNE>f rep ct kesha</CCListMNE> < AdmittingPhyMNE>f pt admit dr rebolledo</AdmittingPhyMNE> <AttendingPhyMNE>f pt attend dr rebolledo</AttendingPhyMNE> <ConsultingPhyMNE>f pt consult dr rebolledo</ConsultingPhyMNE> <FamilyPhyMNE>f pt fam dr rebolledo</FamilyPhyMNE> <OtherPhyMNE>f pt other dr rebolledo</OtherPhyMNE> < PrimaryPhyMNE>f pt prim care dr rebolledo</PrimaryPhyMNE> <ReferringPhyMNE>f pt referring dr rebolledo</ReferringPhyMNE> Impression Assessment and Plan Bilateral pleural effusions/chest tightness/SOB/moderate aortic stenosis/ cardiomyopathy/hypertension--the patient will be admitted to the telemetry unit for serial cardiac enzymes, cardiac rhythm monitoring and a 2-D echocardiogram with Dopplers. Continue amiodarone 200 mg by mouth every morning and aspirin 81 mg by mouth every morning. End-stage renal disease/dialysis on Mondays and Fridays--per creatinine has increased to 5.9, which is in her top normal range. Combining this with pleural effusions, I have contacted post manager promotions assistant sales marketing Dr. Agustin, who has put orders in for the patient to undergo dialysis in the morning. She does not produce much urine, and therefore is not a diuretic candidate. Continue uzma caps 2 every morning, calcium acetate 2 capsules by mouth 3 times a day after meals, and vitamin D3 every morning. Should her symptoms worsen overnight, a more emergent dialysis will be undertaken. Level of Care Telemetry Advanced Directives Existing Advance Directive: No Existing Living Will: No Existing Power of Newborn Hearing Screener: No Resuscitation Status FULL RESUSCITATION VTE Prophylaxis VTE Risk Assessment Done? Y/N: Yes Risk Level: Moderate Given or contraindicated: SCD's
[2016-10-03 23:13] VITALS: BP 128/79; PULSE 68; TEMP 36.8; O2SAT 96; Ht 172.7 cm; Wt 64.1 kg
--- NOTE | 2016-10-03 23:26 | EMERGENCY ROOM VISIT NOTE ---
History Report prepared by Boo: Gabriela Orozco Under the Supervision of: Dr. Osorio Ludwig M.D. First contact with patient: 17:38 Chief Complaint: CARDIAC ASSESSMENT Stated Complaint: CHEST TIGHTNESS, SHALLOW BREATHING, DRY COUGH Nursing Triage Summary: PT VERBALIZES SINCE SATURDAY MORNING SHE HAS HAD A DRY/SCRATCHY THROAT WITH A NON PRODUCTIVE COUGH. PT WENT TO DIALYSIS FOR 4 HOURS SATURDAY, HAD A LOW GRADE FEVER THERE. PT PRESENTS TODAY C/O CHEST TIGHTNESS AND SOB WORSENING SINCE SATURDAY. PT HAS HX OF CHF, FEELS CONGESTED. History of Present Illness The patient is a 81 year old female who presents to the Emergency Room with complaints of constant and worsening chest tightness starting a few weeks ago. She also complains of worsening shortness of breath. She started having a dry cough 2 days ago. She has worsening symptoms with lying down flat. She had a temperature of 99.6 degrees Fahrenheit 2 days ago. The patient also reports a loss of appetite. She receives dialysis twice a week. She last received her dialysis treatment 2 days ago. The patient has a history of congestive heart failure. She is not currently on any diuretics. She denies any recent weight gain. She also denies lower extremity swelling, or any other complaints. Source of History: patient Onset: a few weeks ago Position: chest Quality: other (tightness) Timing: constant, worsening Modifying Factors (Worsening): other (lying down flat) Associated Symptoms: + SOB, + cough Review of Systems See HPI for pertinent positives & negatives. A total of 10 systems reviewed and were otherwise negative. 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 Family History Cancer Gallbladder disease Hypertension Social History Smoking Status: Never Smoker Drug Use: none Marital Status: Housing Status: lives alone Occupation Status: retired Current/Historical Medications Scheduled Amiodarone Hcl (Cordarone), 200 MG PO QAM Aspirin (Aspirin 81), 81 MG PO QAM B-Complex W/ C & Folic Acid ([place] Caps), 2 CAP PO QAM Calcium Acetate (Phoslo 667 Mg), 2 CAP PO TID AFTER MEALS Cholecalciferol (Vitamin D3), 1 CAP PO QAM Docusate Sodium (Colace), 1 CAP PO QPM Scheduled PRN Acetaminophen (Tylenol), 500 MG PO DIRECTED PRN for Pain Gccqslj-Lylgxkedvqqlz-Iwifyimz (Migraine Relief), 1 TAB PO UD PRN for Migraine Epoetin Jose R (Procrit), 40,000 UNITS INJ DIRECTED PRN for DIALYSIS Guaifenesin (Robitussin Mucus+Chest Co), 1 DOSE PO DIRECTED PRN for Cough Lorazepam (Ativan), 1 MG PO TID PRN for Anxiety/Agitation Allergies Coded Allergies: Amoxicillin (Verified Allergy, Severe, UNKOWN, 10/03/16) Clavulanic Acid (Verified Allergy, Severe, UNKOWN, 10/03/16) Nortriptyline (Verified Allergy, Severe, UNKNOWN, 10/03/16) Aloe (Verified Allergy, Intermediate, rash, 10/03/16) Amitriptyline (Verified Allergy, Unknown, unknown, 10/03/16) Amlodipine (Verified Allergy, Unknown, UNKNOWN, 10/03/16) Atorvastatin (Verified Allergy, Unknown, 10/03/16) Azathioprine (Verified Allergy, Unknown, 10/03/16) Barbiturates (Verified Allergy, Unknown, TAKES DARVOCET AT HOME, 10/03/16) Beta Adrenergic Blockers (Verified Allergy, Unknown, -, 10/03/16) Butalbital (Verified Allergy, Unknown, TAKES DARVOCET AT HOME, 10/03/16) Cefaclor (Verified Allergy, Unknown, RECEIVED ANCEF PREOP IN OR (08/05/12) , 10/03/16) Cefuroxime (Unverified Allergy, Unknown, UNKNOWN, 10/03/16) Cephalosporins (Verified Allergy, Unknown, 10/03/16) Chlorpheniramine (Verified Allergy, Unknown, 10/03/16) Cholestyramine (Verified Allergy, Unknown, 10/03/16) Ciprofloxacin (Verified Allergy, Unknown, redness and swelling, 10/03/16) Clonidine (Verified Allergy, Unknown, unknown, 10/03/16) Codeine (Verified Allergy, Unknown, TAKES DARVOCET AT HOME, 10/03/16) Dextromethorphan (Verified Allergy, Unknown, TAKES DARVOCET AT HOME, ) Diltiazem (Verified Allergy, Unknown, 10/03/16) Escitalopram (Verified Allergy, Unknown, 10/03/16) Estrogens (Verified Allergy, Unknown, 10/03/16) Felodipine (Verified Allergy, Unknown, 10/03/16) Ferrous Sulfate (Verified Allergy, Unknown, UNKNOWN, 10/03/16) Hydralazine (Verified Allergy, Unknown, unknown, 10/03/16) Hydrochlorothiazide (Verified Allergy, Unknown, 10/03/16) Hydrocodone (Verified Allergy, Unknown, TAKES DARVOCET AT HOME, 10/03/16) Hydrocortisone (Verified Allergy, Unknown, unknown, 10/03/16) Hydromorphone (Verified Allergy, Unknown, unknown, 10/03/16) Ibuprofen (Verified Allergy, Unknown, TAKES EC ASA AT HOME, 10/03/16) Indapamide (Verified Allergy, Unknown, 10/03/16) Ipratropium (Verified Allergy, Unknown, UNKNOWN, 10/03/16) Isosorbide Nitrate (Verified Allergy, Unknown, UNKNOWN, 10/03/16) Ketoconazole (Verified Allergy, Unknown, unknown, 10/03/16) Lisinopril (Verified Allergy, Unknown, 10/03/16) Losartan (Verified Allergy, Unknown, 10/03/16) Mesalamine (Verified Allergy, Unknown, 10/03/16) Methyltestosterone (Verified Allergy, Unknown, 10/03/16) Metoprolol (Verified Allergy, Unknown, 10/03/16) NSAIDs (Verified Allergy, Unknown, though takes ecotrin at home, 10/03/16) Olsalazine (Verified Allergy, Unknown, 10/03/16) Phenylpropanolamine (Verified Allergy, Unknown, 10/03/16) Pilocarpine (Verified Allergy, Unknown, UNKNOWN, 10/03/16) Progestins (Verified Allergy, Unknown, 10/03/16) Propranolol (Verified Allergy, Unknown, UNKNOWN, 10/03/16) Propylene Glycol (Verified Allergy, Unknown, 10/03/16) Rabeprazole (Verified Allergy, Unknown, 10/03/16) Sertraline (Verified Allergy, Unknown, UNKNOWN, 10/03/16) Simvastatin (Verified Allergy, Unknown, 10/03/16) Sulfa Antibiotics (Verified Allergy, Unknown, UNKNOWN, 10/03/16) Sulfacetamide (Verified Allergy, Unknown, 10/03/16) Sulfur (Verified Allergy, Unknown, 10/03/16) Terazosin (Verified Allergy, Unknown, 10/03/16) Terfenadine (Verified Allergy, Unknown, 10/03/16) Torsemide (Unverified Allergy, Unknown, UNKNOWN, 10/03/16) Tramadol (Verified Allergy, Unknown, unknown, 10/03/16) Triamterene (Verified Allergy, Unknown, 10/03/16) Verapamil (Verified Allergy, Unknown, 10/03/16) Calcium Acetate (Verified Adverse Reaction, Mild, CONSTIPATION, 10/03/16) Uncoded Allergies: XANTHINE (Allergy, Unknown, TAKES DARVOCET AT HOME, 04/10/14) PT CLAIMS SHE CAN TOLERATE CAFFEINE Physical Exam Vital Signs Date Time Temp Pulse Resp B/P Pulse Ox O2 Delivery O2 Flow Rate FiO2 10/03/16 20:08 65 10/03/16 19:53 64 16 148/93 96 Room Air 10/03/16 18:25 62 16 142/102 95 Room Air 10/03/16 17:55 95 Room Air 10/03/16 16:31 36.5 62 20 125/77 96 Room Air 10/03/16 16:31 96 Room Air Physical Exam Constitutional: Vital signs reviewed. Eyes: Pupils are equal round reactive to light. Conjunctiva are noninjected. ENT: Pharynx is clear without erythema or exudate. Mucous membranes are moist. Neck supple without meningeal signs. Respiratory: Clear to auscultation bilaterally. Breath sounds are equal bilaterally. Cardiovascular: Regular rate and rhythm. No rubs or gallops. GI: Soft, nondistended and nontender. Bowel sounds are present. Musculoskeletal: No peripheral edema. No lower extremity tenderness. Dialysis catheter right chest. Integumentary: No cyanosis. Neurological: The patient is awake and alert. No focal deficits. Psychiatric: Normal affect. Medical Decision & Procedures ER Provider Diagnostic Interpretation: X-ray results as stated below per interpretation by me and the radiologist: CHEST 2 VIEWS ROUTINE CLINICAL HISTORY: cough eval for pnea dyspnea COMPARISON STUDY: 03/21/2016 FINDINGS: Bilateral pleural effusions. PermCath in superior vena cava. Mid and upper lungs are considered clear. IMPRESSION: Bilateral pleural effusions. Study is otherwise unremarkable. Electronically signed by: Mina Dickson M.D. 10/03/2016 6:10 PM Dictated Date/Time: 10/03/2016 6:09 PM Laboratory Results 10/03/16 17:10 Red Blood Count 3.81, Mean Corpuscular Volume 87.7, Mean Corpuscular Hemoglobin 29.1, Mean Corpuscular Hemoglobin Concent 33.2, Mean Platelet Volume 10.0, Neutrophils (%) (Auto) 64.7, Lymphocytes (%) (Auto) 14.7, Monocytes (%) (Auto) 18.9, Eosinophils (%) (Auto) 1.1, Basophils (%) (Auto) 0.3, Neutrophils # (Auto ) 4.08, Lymphocytes # (Auto) 0.93, Monocytes # (Auto) 1.19, Eosinophils # (Auto ) 0.07, Basophils # (Auto) 0.02 10/03/16 17:10 Test 10/03/16 17:10 10/03/16 18:50 White Blood Count 6.31 K/uL (4.8-10.8) Red Blood Count 3.81 M/uL (4.2-5.4) Hemoglobin 11.1 g/dL (12.0-16.0) Hematocrit 33.4 % (37-47) Mean Corpuscular Volume 87.7 fL (80-100) Mean Corpuscular Hemoglobin 29.1 pg (25-34) Mean Corpuscular Hemoglobin Concent 33.2 g/dl (32-36) Platelet Count 433 K/uL (130-400) Mean Platelet Volume 10.0 fL (7.4-10.4) Neutrophils (%) (Auto) 64.7 % Lymphocytes (%) (Auto) 14.7 % Monocytes (%) (Auto) 18.9 % Eosinophils (%) (Auto) 1.1 % Basophils (%) (Auto) 0.3 % Neutrophils # (Auto) 4.08 K/uL (1.4-6.5) Lymphocytes # (Auto) 0.93 K/uL (1.2-3.4) Monocytes # (Auto) 1.19 K/uL (0.11-0.59) Eosinophils # (Auto) 0.07 K/uL (0-0.5) Basophils # (Auto) 0.02 K/uL (0-0.2) RDW Standard Deviation 56.1 fL (36.4-46.3) RDW Coefficient of Variation 17.4 % (11.5-14.5) Immature Granulocyte % (Auto) 0.3 % Immature Granulocyte # (Auto) 0.02 K/uL (0.00-0.02) Anion Gap 13.0 mmol/L (3-11) Est Creatinine Clear Calc Drug Dose 7.7 ml/min Estimated GFR () 7.3 Estimated GFR (Non- 6.3 BUN/Creatinine Ratio 5.3 (10-20) Calcium Level 9.8 mg/dl (8.5-10.1) Total Bilirubin 0.6 mg/dl (0.2-1) Direct Bilirubin 0.1 mg/dl (0-0.2) Aspartate Amino Transf (AST/SGOT) 15 U/L (15-37) Alanine Aminotransferase (ALT/SGPT) 22 U/L (12-78) Alkaline Phosphatase 71 U/L (45-117) Total Creatine Kinase 64 U/L (26-192) Creatine Kinase MB 1.1 ng/ml (0.5-3.6) Creatine Kinase MB Ratio 1.7 (0-3.0) Troponin I 0.021 ng/ml (0-0.045) Total Protein 7.2 gm/dl (6.4-8.2) Albumin 3.3 gm/dl (3.4-5.0) Prothrombin Time 12.1 SECONDS (9.0-12.0) Prothromb Time International Ratio 1.1 (0.9-1.1) Activated Partial Thromboplast Time 34.3 SECONDS (21.0-31.0) Partial Thromboplastin Ratio 1.3 Troponin of 0.01, BNP greater than 20,000. Laboratory results as reviewed by me. ECG Indication: SOB/dyspnea, other (Chest tightness) Rate (beats per minute): 64 Rhythm: sinus bradycardia Findings: RBBB, no ectopy Comparison ECG Date: March 18, 2016 Change: RBBB was also present on March 18, 2016. ED Course 1738: The patient was evaluated in room B08. A complete history and physical exam was performed. 1835: I reevaluated the patient. She states that the last time she had an effusion was followed up by Dr. Manley. I discussed the treatment plan with the patient. She verbalized her agreement. The patient will be evaluated for further management and care. 2004: I discussed the patient's case with Dr. Siddiqui, from [facility]. Medical Decision This is a 81-year-old female presents with chest discomfort and shortness of breath. Differential diagnosis includes unstable angina, SC, pneumonia, pleurisy, pleural effusion, CHF. I did perform a limited focused review of portions of the patient's old chart on the electronic medical record. The patient was admitted on September 11 for an occluded fistula. I did evaluate the patient as noted above. The patient has had chest tightness for the past 3 weeks with increasing shortness of breath. She is currently denying any chest discomfort. She does state that she gets short of breath with any exertion. IV access was established. The patient was placed on a continuous mannequin coloring artist. I did order and personally review the patient's 12- lead EKG and chest x-ray as described above. The patient has bilateral pleural effusions greater on the right side. I did order and review the patient's blood work as noted in the electronic medical record. Troponin is 0.01. BNP is greater than 20,000. I did discuss the test results with the patient. She does state that she was admitted in March of last year for similar pleural effusions and had them drained by Dr. Fairbanks. I did attempt to reach Dr. Fairbanks but was unsuccessful as he has not waste collection driver. I did discuss case with the hospitalist and case management social worker for further evaluation in the hospital. Consults Time Called: 1999 [facility] 2004 I discussed the patient's case with Dr. Siddiqui, from [facility]. Impression Primary Impression: Bilateral pleural effusion Additional Impressions: Dyspnea on exertion Precordial chest pain Scribe Attestation The scribe's documentation has been prepared under my direct and personally reviewed by me in its entirety. I confirm that the note above accurately reflects all work, treatment, procedures, and medical decision making performed by me. Departure Information Dispostion Being Evaluated By Hospitalist Referrals Jose Guardado M.D. (PCP) Patient Instructions My [facility] Problem Qualifiers
[2016-10-04] VITALS (21 sets, daily range): BP systolic 115–146; BP diastolic 59–86; PULSE 58–80; TEMP 36.5–37; O2SAT 95–98
[2016-10-04 06:19] LABS: BASO % 0.5 %; BASO ABS # 0.03 K/uL (0-0.2); COMPLETE YES; EOS % 2.5 %; HEMATOCRIT 30.7 % (37-47); IG% 0.5 %; LYMPH % 18.7 %; LYMPH ABS # 1.07 K/uL (1.2-3.4); MEAN CORPUSCULAR HEMOGLOBIN 28.7 pg (25-34); MEAN CORPUSCULAR HGB CONC 32.6 g/dl (32-36); MEAN PLATELET VOLUME 9.9 fL (7.4-10.4); MONO % 20.5 %; NEUT % 57.3 %; PLATELET COUNT 414 K/uL (130-400); RED BLOOD COUNT 3.49 M/uL (4.2-5.4); WHITE BLOOD COUNT 5.71 K/uL (4.8-10.8)
[2016-10-04 06:25] LABS: INR 1.1 (0.9-1.1); PARTIAL THROMBOPLASTIN RATIO 1.3; PROTHROMBIN TIME (PATIENT) 12.2 SECONDS (9.0-12.0)
[2016-10-04 07:00] LABS: BUN/CREATININE RATIO 5.2 (10-20); CALCIUM 9.5 mg/dl (8.5-10.1); CKMB/CK RATIO 2.9 (0-3.0); CREATININE 6.5 mg/dl (0.60-1.20); MAGNESIUM 2.6 mg/dl (1.8-2.4); POTASSIUM 4.5 mmol/L (3.5-5.1)
--- NOTE | 2016-10-04 08:05 | Clinical Documentation Query ---
LEE ANN Mcgill : CLINICAL DOCUMENTATION QUERIES QUERY 1 OF 3 Patient is a 81 year old female admitted for evaluation and treatment of bilateral pleural effusions and associated SOB in the setting of ESRD and likely fluid volume overload. Repeat echocardiogram pending but that from 03/23 demonstrated an LVEF of 30-35% and Grade II diastolic dysfunction, moderate , mild MR and TR, mild to moderate pulmonary hypertension. She is to be seen by nephrology in consultation and hemodialysis is anticipated for this a.m. as she does not produce much urine and is therefore not a diuretic candidate. In your clinical opinion is this patient being managed for: ( x ) Acute on chronic combined systolic and diastolic CHF ( ) Other explanation of clinical findings (Please Explain) ( ) Unable to determine (Please Define) ( ) Need to Discuss ( ) Not Agree The medical record reflects the following clinical findings, treatment, and risk factors. Clinical Indicators: As above Treatment:She is to be seen by nephrology in consultation and hemodialysis is anticipated for this a.m., fluid restriction Risk Factors: ESRD, echo findings as above QUERY 2 OF 3 Hemoglobin and hematocrit this a.m. of 10.0 g/dl and 30.7%. Anemia dates back many years, now in the setting of ESRD. She is to be seen in consultation by nephrology and has been recieving Procrit as directed with HD. As appropriate, consider clarification of etiology of anemia as suggested below. In your clinical opinion is this patient being managed for: ( x ) Anemia in chronic kidney disease ( ) Other explanation of clinical findings (Please Explain) ( ) Unable to determine (Please Define) ( ) Need to Discuss ( ) Not Agree The medical record reflects the following clinical findings, treatment, and risk factors. Clinical Indicators: As above Treatment: Nephrology consultation, Procrit Risk Factors: ESRD QUERY 3 OF 3 Serum sodium 130 mmol/L. She is being maintained on a fluid restriction in the setting of ESRD and current fluid volume overload. As appropriate, consider documentation as suggested below as this impacts severity of illness and associated risk of mortality. Thank you. In your clinical opinion is this patient being managed for: ( x ) Hyponatremia ( ) Other explanation of clinical findings (Please Explain) ( ) Unable to determine (Please Define) ( ) Need to Discuss ( ) Not Agree The medical record reflects the following clinical findings, treatment, and risk factors. Clinical Indicators: ESRD with fluid volume overload, acute on chronic combined systolic and diastolic CHF secondary to fluid volume overload associated with ESRD Treatment: Nephrology consultation, fluid restriction, HD Risk Factors: ESRD, chronic combined systolic and diastolic CHF, medications. Please clarify and document your clinical opinion in the progress notes and discharge summary. Terms such as "probable", "suspected", "likely", "questionable", "possible", or "still to be ruled out" are acceptable. IF IN AGREEMENT, YOU MUST DOCUMENT ABOVE DIAGNOSTIC STATEMENT IN DAILY PROGRESS NOTES AND DISCHARGE SUMMARY. This document is not part of the patient's record. Thank You, Alex Dill, RN [phone]
[2016-10-04] MEDS: CALCIUM ACETATE 667MG GELCAP PO SCH ×3 (08:30→16:14)
[2016-10-04] MEDS: AMIODARONE 200 MG TAB PO SCH ×2 (09:00→11:43)
[2016-10-04] MEDS: ASPIRIN 81 MG ECTAB PO SCH ×2 (09:00→11:43)
[2016-10-04] MEDS: NEPHROCAPS PO SCH ×2 (09:00→11:43)
[2016-10-04] MEDS: LORAZEPAM 1 MG TAB PO PRN ×2 (09:31→18:21)
[2016-10-04] MEDS ORDERED: NURSING VERBAL MED ORDER ONE (10:00)
[2016-10-04] MEDS: CARVEDILOL 12.5 MG TAB PO SCH ×3 (10:30→22:40)
--- NOTE | 2016-10-04 11:00 | NEPHROLOGY CONSULTATION ---
DATE OF CONSULTATION: 10/04/2016 PROBLEM: End-stage renal disease. SUBJECTIVE: Mrs. Roth is a 81-year-old white female residing in [place]. I have seen her in the past for assistance and continued management of her chronic renal disease resulting in end-stage renal disease in the fall of 2015. Mrs. Roth's chronic medical problems currently include end-stage renal disease, history of congestive heart failure secondary to cardiomyopathy, aortic stenosis, history of paroxysmal atrial fibrillation as well as a history of an oral carcinoma and bilateral pleural effusions. Purely from the standpoint of her end-stage renal disease she has a longstanding history of a reduction in her renal function associated with significant proteinuria. When she was first referred to me she had significant renal insufficiency and for that as well as other reasons was felt to be a poor biopsy candidate. However, diagnoses such as membranous nephropathy and focal segmental glomerulosclerosis were considered, particularly given her history of significant proteinuria and a relatively inactive urine sediment. She would occasionally note the presence of a small amount of peripheral edema, but it had never been significant. Imaging studies of her kidneys failed to show evidence of renal artery stenosis. Additionally, her kidneys were relatively normal size without hydronephrosis. However, there was some degree of cortical atrophy and an increase in echogenicity consistent with chronic renal disease. She also had a history of longstanding hypertension. She has had a sensitivity to a number of medications in the past including a variety of antihypertensive medications. Nevertheless, her kidney function deteriorated particularly when her issues became increasingly complicated by other illnesses, particularly the development of a tonsillar carcinoma. Her tonsillar carcinoma was first noted when she presented with cervical adenopathy in early January of 2014. The presence of cervical adenopathy was confirmed with a CT scan. 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 Subsequently, she was treated with combined radiation and chemotherapy. During that time, she had a gradual deterioration in not only her renal function, but in her general sense of wellbeing. However, since her treatment for her tonsillar carcinoma she has done reasonably well with no evidence to date of recurrent disease. She has, however, been noted bilateral pleural effusions; these were tapped in the late summer 2015. No definite evidence of malignancy was noted. Additionally, her other issues include congestive heart failure. As noted, she has a longstanding history of hypertension. She has a history of a cardiomyopathy and aortic stenosis as well as paroxysmal atrial fibrillation. She is being followed by Dr. Wallis. Given her cardiomyopathy and increasing symptoms of congestive heart failure he has suggested a cardiac catheterization, but the patient has yet to decide definitely that she wants to go through with that, although she believes that she needs to. In the late summer/early fall of 2015 Mrs. Roth was having increasing problems with shortness of breath and developed uremic symptomatology with a poor appetite and weight loss. She also developed an increasing anemia. At that time it was felt that she needed to begin maintenance dialysis. An AV fistula had been created for dialysis, but failed to develop. Therefore, a tunneled hemodialysis catheter was placed in her right internal jugular vein and has served as her vascular access. As noted, her fistula failed to develop. She has had procedures done by Dr. Alonso to try to improve her AV fistula. Those have failed to lead to a functional fistula. It has been suggested that she have an AV graft fistula created, but she has been reluctant to do so. Currently, she has only agreed to dialysis twice a week, although I have been encouraging her to increase her dialysis treatments to 3 times a week based on her increasing symptoms of shortness of breath and gradual rise in her predialysis serum creatinine. She has been reluctant to do so. Her current admission was brought about with her complaining of some increasing shortness of breath. This was not associated with pedal edema. However, her shortness of breath was associated with a generalized chest tightness, but she would not refer to that discomfort as pain. There is no significant increase in her discomfort associated with exertion. Her problems of shortness of breath and chest tightness have waxed and waned over the course of the past month. For the past several days, it has become increasingly severe and associated with a dry hacking cough which has been nonproductive. She says that her appetite has not been particularly good. However, depending on when she is interviewed she otherwise says that she feels fine, other than the shortness of breath. Chest x-rays have shown evidence of bilateral pleural effusions which appear to be somewhat worse more recently. She is currently being dialyzed 2 times a week at the [facility] dialysis unit in [place]. Her regular outpatient medications are as follows: Acetaminophen 650 mg 1 t.i.d. p.r.n. pain, amiodarone 200 mg daily, Ativan 1 mg t.i.d. p.r.n., calcium acetate 667 mg 1 with breakfast. She also uses extra strength Tums 3 with each meal other than breakfast at which time she takes 2. She takes Colace 100 mg once daily, carvedilol 12.5 mg 1-1/2 tablets twice daily, levothyroxine 50 mcg daily and renal caps 1 daily. She also takes vitamin D3 5000 units every morning. Her current dialysis treatments on Mondays and Fridays. She dialyzes with an Optiflux 160 dialyzer with a blood flow rate of 400 and dialysate flow rate of 800. Her estimated dry weight has been about 62 kilograms. She dialyzes with a 2 potassium, 2 calcium, 1 magnesium, 100 mg dextrose bath with a sodium of 137 and a bicarbonate of 35. Access is through her right IJ tunneled catheter. Her other dialysis medications include heparin for her dialysis treatments and Mircera 50 mcg every 2 weeks. She also gets intravenous iron on a weekly basis with her last dose on 09/28/2016. ALLERGIES AND DRUG INTOLERANCES: Most of her issues represent drug intolerances rather than true documented allergies. The list is present on her record and I have no updates for that. The remainder of her past medical history, family history, social history and review of systems is unremarkable. It should be pointed out that she has been somewhat anxious and depressed, particularly since the of her , which occurred about 4 years or so ago. She currently has a care management associate that helps her at home and assists in her transportation to dialysis. She is active in her sabianism and gets some support from her fellow parishioners. However, she complains that her life seems to revolve around her medical issues. OBJECTIVE: GENERAL: On physical exam at the current time Mrs. Roth appeared as a somewhat chronically ill woman who certainly did not appear to be in any distress when seen. She did not appear to be particularly short of breath. VITAL SIGNS: She is afebrile (36.6), her blood pressure 135/82, her pulse 59 and regular, respiratory rate 20 and her pulse ox 98% on room air. SKIN: Shows normal skin turgor. She has a right IJ catheter in place exiting beneath the distal right clavicle. There is no tenderness along the subcutaneous tunnel or discharge from the exit site. LYMPHATICS: Show no current palpable lymphadenopathy. HEAD: Normal. EYES: Grossly normal. The ocular fundi were not examined. EARS, NOSE, MOUTH AND THROAT: All unremarkable. She does scarification in her posterior pharynx. Her oral mucous membranes are moist. NECK: Supple. She has obvious jugular venous distention to the angle of the jaw sitting at 90 degrees. I hear no carotid bruit and there is no thyromegaly. CHEST: Clear to auscultation but breath sounds are significantly diminished at the bases and she has some dullness to percussion at the bases. I hear no wheezes, rales or rhonchi. CARDIAC: Shows a regular rhythm. S1 and S2 are normal. Her PMI is in the 6th intercostal space in the anterior axillary line. She has a grade 3/6 systolic murmur heard at the base radiating toward the neck, but also along the left sternal border and at the apex. The murmur is occasionally high pitched and somewhat cooing. I hear no diastolic murmurs and she has no gallop. ABDOMEN: Nontender. There is no organomegaly or mass. EXTREMITIES: Show no cyanosis, clubbing or peripheral edema. Peripheral pulses are diminished but present. She has evidence of an attempted creation of an AV fistula in her left wrist and left upper arm. NEUROLOGIC: Shows no lateralizing changes. PERTINENT LABORATORY WORK: From today shows a white count of 5710 with an essentially normal differential, although she does have 20.5% monocytes. Her hemoglobin is 10.0, hematocrit 30.7. Platelet count is 414,000. Her prothrombin time is 12.2 with an INR of 1.1. Her PTT is 33.9 with a PTTR of 1.3. Clinical chemistries show a sodium of 130 mmol/L, potassium of 4.5 mmol/L, chloride of 89 mmol/L, and CO2 content of 29 mmol/L. Her BUN is 34, creatinine 6.50. Her serum calcium is 9.5. Her magnesium is 2.6. Her total CK is 38. Her CK-MB 1.1, her troponin was 0.023. Her total protein is 7.2 with a serum albumin of 3.3. Imaging studies included chest x-ray which showed evidence of bilateral pleural effusions but no evidence of significant pulmonary vascular congestion or pulmonary edema. ASSESSMENT: Ms. Roth is a pleasant woman with a number of serious illnesses, not the least of which is her end-stage renal disease. She also has a history of a congestive cardiomyopathy and aortic stenosis of uncertain degree. A cardiac catheterization has been suggested for her to further evaluate those problems but she has not decided on whether or not she wants to go through with it. She has a history of tonsillar carcinoma for which she has received radiation therapy and chemotherapy in the past and currently appears to be in remission. She also has a history of paroxysmal atrial fibrillation, although that does not appear to be an issue at the current time. An irregular heartbeat has not been recognized either in the hospital or during her current stay here in the hospital. She is somewhat hyperglobulinemic and that should be reevaluated. At the current time she is increasingly short of breath and appears to have increasing pleural effusions bilaterally. Obviously, these are concerning, particularly given her history of metastatic tonsillar carcinoma. RECOMMENDATIONS: From the renal standpoint, we will plan on hemodialysis today. Other recommendations would include doing a serum electrophoresis and serum immunofixation. Further I would suggest that she be seen by Dr. Manley to tap her pleural effusions bilaterally for diagnostic and therapeutic purposes. Hopefully, that will improve her shortness of breath and perhaps her chest discomfort. No other immediate recommendations other than to continue with her regular medications. Again, she will be dialyzed today.
[2016-10-04] MEDS: LEVOTHYROXINE 50 MCG TAB PO SCH (11:42)
[2016-10-04 14:52] LABS: POINT OF CARE PRO-BNP > 20000 pg/ml (0-1800)
[2016-10-04] MEDS: DOCUSATE SODIUM 100 MG CAP PO SCH (22:40)
--- NOTE | 2016-10-05 00:12 | Progress Note ---
Subjective Date of Service: late entry for visit Oct 04, 2016. Subjective Pt evaluation today including: conversation w/ patient, physical exam, chart review, lab review, review of studies (cxr), conversation w/ home energy consultant (CT surgery), review of inpatient medication list Pain: denies any PO Intake: normal tele stable since admission she states that she has had gradual increase in dyspnea with exertion for 2-3 weeks orthopnea set in during that time period as well despite no significant change in her weight mild cough with frequent throat clearing no dyspnea at rest Problem List Medical Problems: (1) Bilateral pleural effusion Status: Acute (2) Dyspnea on exertion Status: Acute (3) Left sided chest pain Status: Acute (4) Precordial chest pain Status: Acute (5) Renal failure (ARF), acute on chronic Status: Acute (6) Renal insufficiency Status: Acute Review of Systems Constitutional: No fever Respiratory: + cough, + dyspnea on exertion, + sputum, No wheezing Cardiac: + orthopnea, No chest pain, No edema Abdomen: No pain Objective Vital Signs Date Time Temp Pulse Resp B/P Pulse Ox O2 Delivery O2 Flow Rate FiO2 10/04/16 22:17 36.5 59 132/71 10/04/16 22:15 66 129/66 10/04/16 22:00 65 129/65 10/04/16 21:45 67 133/69 10/04/16 21:30 66 130/71 10/04/16 21:15 71 124/66 10/04/16 21:00 67 130/60 10/04/16 20:45 64 141/59 10/04/16 20:30 66 139/68 10/04/16 20:15 59 132/71 10/04/16 20:00 59 125/75 10/04/16 19:45 66 130/83 10/04/16 19:30 65 128/77 10/04/16 19:15 60 137/75 10/04/16 19:00 79 135/79 10/04/16 18:45 80 138/80 10/04/16 16:30 36.5 80 142/68 10/04/16 16:00 Room Air 10/04/16 15:29 36.9 58 18 115/74 96 Room Air 10/04/16 12:44 36.5 64 18 146/86 96 Room Air 10/04/16 12:00 Room Air 10/04/16 08:00 Room Air 10/04/16 07:47 36.6 59 20 135/82 98 Room Air 10/04/16 04:09 Room Air 10/04/16 03:54 37.0 60 20 123/78 95 Room Air Physical Exam General Appearance: no apparent distress, + thin ENT: pharynx normal Neck: + JVD Respiratory/Chest: no respiratory distress, no accessory muscle use, + decreased breath sounds (right base, scantly left base) Cardiovascular: regular rate, rhythm, no gallop, + systolic murmur (3/6 RUSB) Abdomen: normal bowel sounds, non tender, soft, no organomegaly Extremities: no pedal edema Neurologic/Psychiatric: alert, oriented x 3 Skin: + pertinent finding (dialysis catheter right chest clean) Laboratory Results Last 24 Hours Test 10/04/16 05:15 10/04/16 11:10 10/04/16 13:15 10/04/16 18:30 White Blood Count 5.71 K/uL Red Blood Count 3.49 M/uL Hemoglobin 10.0 g/dL Hematocrit 30.7 % Mean Corpuscular Volume 88.0 fL Mean Corpuscular Hemoglobin 28.7 pg Mean Corpuscular Hemoglobin Concent 32.6 g/dl Platelet Count 414 K/uL Mean Platelet Volume 9.9 fL Neutrophils (%) (Auto) 57.3 % Lymphocytes (%) (Auto) 18.7 % Monocytes (%) (Auto) 20.5 % Eosinophils (%) (Auto) 2.5 % Basophils (%) (Auto) 0.5 % Neutrophils # (Auto) 3.27 K/uL Lymphocytes # (Auto) 1.07 K/uL Monocytes # (Auto) 1.17 K/uL Eosinophils # (Auto) 0.14 K/uL Basophils # (Auto) 0.03 K/uL RDW Standard Deviation 56.0 fL RDW Coefficient of Variation 17.5 % Immature Granulocyte % (Auto) 0.5 % Immature Granulocyte # (Auto) 0.03 K/uL Prothrombin Time 12.2 SECONDS Prothromb Time International Ratio 1.1 Activated Partial Thromboplast Time 33.9 SECONDS Partial Thromboplastin Ratio 1.3 Sodium Level 130 mmol/L Potassium Level 4.5 mmol/L Chloride Level 89 mmol/L Carbon Dioxide Level 29 mmol/L Anion Gap 12.0 mmol/L Blood Urea Nitrogen 34 mg/dl Creatinine 6.50 mg/dl Est Creatinine Clear Calc Drug Dose 7.0 ml/min Estimated GFR () 6.5 Estimated GFR (Non- 5.6 BUN/Creatinine Ratio 5.2 Random Glucose 92 mg/dl Calcium Level 9.5 mg/dl Magnesium Level 2.6 mg/dl Total Creatine Kinase 38 U/L 40 U/L Creatine Kinase MB 1.1 ng/ml 1.2 ng/ml Creatine Kinase MB Ratio 2.9 3.0 Troponin I 0.023 ng/ml 0.024 ng/ml Assessment and Plan 81yo female with: 1. dyspnea, orthopnea - suspect due to CHF/ESRD. Pleural effusions could be playing a role but they are not that large. Doubt VTE but on differential. To obtain HD today. If symptoms improve with dialysis then volume overload was the culprit. 2. suspected acute/chronic systolic CHF - last echo was in fall 2015 showed EF < 30%. Dialysis to help with this. Cont BB. 3. ESRD on HD - appreciate nephrology consult. To have HD today. 4. hypothyroidism - continue synthroid. TSH 07/2016 was elevated; repeat TSH am. 5. pleural effusions - consult thoracic surgery. Left sided is quite small. Right side is larger than left, but unsure if the fluid is large enough to safely tap. Thoracic surgery consulted for their opinion. 6. pulmonary HTN on last echo - need to asses for ambulatory O2 needs at d/c. 7. 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 8. a. fib - rates controlled. In NSR on amiodarone. 9. DVT proph - add low dose heparin 5000 BID in am. Continued [facility] stay due to: multiple IV medications needed Discharge planning: nursing home facility
[2016-10-05 00:18] VITALS: BP 100/60; PULSE 54; TEMP 36.7; O2SAT 95
[2016-10-05 04:00] VITALS: BP 115/72; PULSE 55; TEMP 36.9; O2SAT 95
[2016-10-05 06:15] LABS: CREATININE 4.4 mg/dl (0.60-1.20)
[2016-10-05 06:16] LABS: BUN/CREATININE RATIO 3.9 (10-20); CALCIUM 8.1 mg/dl (8.5-10.1); POTASSIUM 3.5 mmol/L (3.5-5.1)
[2016-10-05] MEDS: LEVOTHYROXINE 50 MCG TAB PO SCH (06:24)
[2016-10-05 06:38] LABS: THYROID STIMULATING HORMONE 5.2 uIu/ml (0.300-4.500)
[2016-10-05] MEDS: CALCIUM ACETATE 667MG GELCAP PO SCH ×3 (07:30→16:34)
[2016-10-05 07:39] VITALS: BP 124/75; PULSE 55; TEMP 36.8; O2SAT 95
[2016-10-05] MEDS: AMIODARONE 200 MG TAB PO SCH (08:10)
[2016-10-05] MEDS: CARVEDILOL 12.5 MG TAB PO SCH ×2 (08:10→21:05)
[2016-10-05] MEDS: ASPIRIN 81 MG ECTAB PO SCH (08:11)
[2016-10-05] MEDS: NEPHROCAPS PO SCH (08:11)
--- NOTE | 2016-10-05 09:34 | Medical Consult ---
Consultation Note Date of Service Oct 05, 2016. Consultation Note Consult Dictated #[id number]
[2016-10-05] MEDS ORDERED: SODIUM CHLORIDE 0.9% 1000ML 1,000 ML IV PRN (09:52)
[2016-10-05] MEDS ORDERED: EPOETIN ALFA INJ 5,000 UNITS in SYRINGE 0 ML IV. SCH (10:00)
[2016-10-05] MEDS ORDERED: EPOETIN ALFA 10,000 UNITS/ML VIAL IV. ONE (10:00)
[2016-10-05] MEDS ORDERED: HEPARIN SOD (PORCINE) 1000 UNIT/ML 10 ML VIAL IV ONE (10:00)
--- NOTE | 2016-10-05 10:20 | NEPHROLOGY PROGRESS NOTE ---
DATE: 10/05/2016 SUBJECTIVE: Mrs. Roth says that she is feeling relatively well. She denies having any shortness of breath at rest. She denies having any significant tightness in her chest. She has not had a cough. She has no other particular symptoms of uremia or volume overload, although her appetite is only fair. Apparently [facility] is out of town. She was seen by Mr. Jesse Elliott, Dr. Manley's PA. Decubitus chest films have been ordered. There is some question as to whether or not a thoracentesis will be done. I suspect Dr. Manley will make that decision however. OBJECTIVE: GENERAL: On physical exam at the time seen Mrs. Roth appears relatively comfortable and well, although obviously chronically ill. VITAL SIGNS: She is afebrile (36.8), her blood pressure 124/75. Her pulse 55 and regular, respiratory rate 18, her pulse ox 95% on room air. SKIN: Shows somewhat of a sallow complexion. She has normal skin turgor. She has a tunneled hemodialysis catheter in the right IJ exiting beneath the distal right clavicle. There is no rash or infiltrative skin disease. She has no palpable lymphadenopathy. HEAD: Grossly normal. EYES: Grossly normal. The ocular fundi were not examined. EARS, NOSE, MOUTH AND THROAT: All appear reasonably normal. Oral mucous membranes are moist. NECK: Supple. She still has some mild jugular venous distention sitting at about 75 degrees. Jugular veins are up about 1-2 cm above the clavicle. I hear no carotid bruits and there is no thyromegaly. CHEST: Shows diminished breath sounds at the bases. It is otherwise clear with no wheezes, rales or rhonchi. CARDIAC: Shows a regular rhythm. S1 and S2 seem normal. She has a grade 3/6 systolic murmur at the base radiating toward the neck as well as along the left sternal border and heard at the apex. The murmur is occasionally harsh and high pitched. ABDOMEN: Nontender. There is no definite organomegaly or mass. She has no current peripheral edema. There are no lateralizing neurologic signs. LABORATORY: Pertinent laboratory work done today shows a sodium of 136 mmol/L, potassium 3.5 mmol/L, chloride 97 mmol/L, and CO2 content 32 mmol/L. Her BUN is 17, creatinine 4.40. Her serum calcium is 8.1. A random blood sugar was 82. Her TSH is 5.20. ASSESSMENT: Mrs. Roth appears to be more comfortable. She has been at rest. Her previous complaint was dyspnea with exertion. However, she is comfortable at rest and oxygenating well. She is not complaining of chest tightness at this point. I doubt that we got a significant amount of fluid off of her yesterday with her dialysis treatment to improve her level of comfort to a great degree. RECOMMENDATIONS: I will see what her lateral decubitus chest films look like. I still think a thoracentesis at least on one side may be helpful at least from a diagnostic standpoint, if not a therapeutic standpoint. We will plan on dialyzing her again tomorrow as I was trying to transition her to being dialyzed for 3 times a week. She is agreeable to be done tomorrow. Hopefully, she will see some value in increasing the frequency of her treatments and agreed to it for the longer term.
--- NOTE | 2016-10-05 10:55 | CONSULTATION REPORT ---
DATE OF CONSULTATION: 10/05/2016 REASON FOR CONSULTATION: Pleural effusions. HISTORY OF PRESENT ILLNESS: This is a 81-year-old female known to our service. We previously saw her in March of 2016, at which time, we were asked to see her for pleural effusion. At that time, the patient was noted to have a large left pleural effusion. She did undergo thoracentesis of 1000 mL of fluid on March 10. It should be noted that the pathology was negative for malignancy and cultures were negative for any type of bacterial, fungal or AFB growth. Her pleural effusions were felt to be due to a combination of end-stage renal disease as well as cardiomyopathy. The patient did well following that procedure. It is noteworthy to mention that during that aforementioned admission, the patient had hemodialysis initiated. The patient was admitted to [facility] this time secondary to worsening shortness of breath. She has since undergone hemodialysis and has had clinical improvement of her shortness of breath. It is noteworthy to mention that during this admission, the patient did have a chest x-ray that showed that she had bilateral pleural effusions with the right greater than left and for this reason, we were asked to see her. I visited with the patient at bedside. She has not had any recent falls, head injuries, visual changes, tinnitus or sore throat. She denies any neck pain. She currently denies any chest discomfort. She says that prior to admission, she was short of breath, but this is improved with dialysis. She denies any abdominal pain or myalgias. She denies any recurrent UTIs. She has no history of stroke or seizure. She denies anxiety or depression. Diagnostic data thus far includes a chest x-ray as described above. She has had labs including a CBC, where hemoglobin and hematocrit of 10.0 and 30.7. White blood cell count was normal and platelet count is 414,000. Coagulation studies revealed an INR of 1.1. Chemistry profile showed sodium and potassium were normal and her BUN and creatinine were 17 and 4.4. PAST MEDICAL HISTORY: Includes the followin. End-stage renal disease. She says she dialyzes on Saturday and Saturday as directed by Dr. Solorzano. 2. Hypertension. 3. 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 4. Cardiomyopathy that is felt to be due to a combination of aortic stenosis as well as previous chemotherapy. Most recent echocardiogram was in March of 2016 that showed 35% ejection fraction with normal right ventricular function, mild mitral regurgitation and severe aortic stenosis. 5. Osteoarthritis. 6. Hyperlipidemia. 7. GERD. 8. Spinal stenosis. 9. Vitamin B12 deficiency. 10. Vitamin D deficiency. PAST SURGICAL HISTORY: Includes, 1. Tonsillar biopsy. 2. 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 3. 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 4. Appendectomy. 5. Cholecystectomy. 6. History of hemodialysis Perm-A-Cath placement. 7. History of attempted left upper extremity hemodialysis fistula. 8. Left thoracentesis as noted above. ALLERGIES: SHE IS ALLERGIC TO AMITRIPTYLINE, AMLODIPINE, AMOXICILLIN, ATORVASTATIN, AZATHIOPRINE, BARBITURATES AND BETA BLOCKERS. OUTPATIENT MEDICATION REGIMEN: Includes the followin. Tylenol as needed. 2. Amiodarone 200 mg daily. 3. Aspirin 81 mg daily. 4. Migraine relief daily. 5. Renal caps daily. 6. PhosLo 667 mg 2 capsules with each meal. 7. Vitamin D3 at 5000 units daily. 8. Colace 100 mg daily. 9. Procrit 40,000 units with dialysis. 10. Guaifenesin as needed. 11. Ativan as needed. SOCIAL HISTORY: Lifetime nonsmoker. FAMILY HISTORY: Mother has CHF. REVIEW OF SYSTEMS: As noted above. PHYSICAL EXAMINATION: VITAL SIGNS: The patient is afebrile with temperature 36.8, pulse 55 and regular, respirations are 18 and unlabored, blood pressure 124/75, and pulse ox 95% on room air. SKIN: Warm with good turgor. GENERAL: She is alert. She is oriented x3. She is in no distress. HEENT: Head is atraumatic and normocephalic. EYES: Pupils equal, round and reactive to light and accommodation. Extraocular motions are intact. EARS: Auditory acuity is grossly intact. NOSE: Nasal patency was intact. Sinuses are nontender. MOUTH: Moist without exudates. NECK: Supple. There is no JVD. CARDIOVASCULAR: Regular rate and rhythm. LUNGS: The patient's lungs revealed decreased breath sounds at the bases with occasional rales. She was not using accessory muscles to aid in respiration. ABDOMEN: Soft and nontender. EXTREMITIES: Revealed no cyanosis, clubbing or edema. NEUROLOGIC: Revealed cranial nerves II through XII are grossly intact. No focal deficits are noted. DIAGNOSTIC DATA: As noted above. IMPRESSION: A 81-year-old female with bilateral pleural effusions. PLAN: The patient has had pleural effusions that have been present for some time. The one on the right does appear slightly larger than before. The patient notes that she did achieve symptomatic improvement with her hemodialysis. She notes that there have been plans made by her tire shop manager to potentially increase her dialysis, which will hopefully aid pleural effusions. As the patient is hemodynamically stable and oxygenating well on room air and in no respiratory distress, I will not perform any thoracentesis at this time to rather see if this improves with her dialysis. I will, however, check decubitus films just to see if this is a layering pleural effusion that would be amenable to a thoracentesis in the future. Discussed this with the patient in great detail and she is in agreement and actually wishes to avoid any procedures in the interim anyway. The above was also discussed with the primary hospitalist service.
--- NOTE | 2016-10-05 12:04 | DIAGNOSTIC IMAGING REPORT ---
CHEST DECUBS CLINICAL HISTORY: right left pleural effusions pleural effusions COMPARISON STUDY: 10/03/2016 FINDINGS: Decubitus projections confirm the presence of layering bilateral effusions. All remaining components of the study are similar. IMPRESSION: Small layering pleural effusions bilaterally Electronically signed by: Mina Dickson M.D. 10/05/2016 12:03 PM Dictated Date/Time: 10/05/2016 12:03 PM
[2016-10-05 12:10] VITALS: BP 121/68; PULSE 56; TEMP 37.1; O2SAT 95
[2016-10-05] MEDS: CALCIUM CARBONATE 500 MG CHEWABLE PO SCH ×2 (13:07→16:40)
[2016-10-05] MEDS: LORAZEPAM 1 MG TAB PO PRN ×2 (13:13→22:35)
[2016-10-05 16:07] VITALS: BP 134/72; PULSE 61; TEMP 36.6; O2SAT 96
[2016-10-05] MEDS: FEXOFENADINE HCL 60 MG TAB PO SCH ×2 (16:41→21:04)
[2016-10-05] MEDS: GUAIFENESIN 600 MG TABCR PO SCH ×2 (16:41→21:03)
[2016-10-05 17:36] LABS: ALBUMIN 3.4 G/DL (3.8-4.8); GAMMA GLOBULIN 0.7 G/DL (0.8-1.7); TOTAL PROTEIN 6.1 G/DL (6.2-8.3)
--- NOTE | 2016-10-05 18:31 | ECHOCARDIOGRAM REPORT ---
*NOTICE TO RECEIVING LIBERTARIAN AGENCY This information is strictly Confidential and protected under [place] law. [place] law prohibits you from making any further disclosure of this information unless further disclosure is expressly permitted by the written consent of the person to whom it pertains or is authorized by law. A general authorization for the release of medical or other information is not sufficient for this purpose. Hospital accepts no responsibility if the information is made available to any other person, INCLUDING THE PATIENT. Interpretation Summary * Name: SHANNON ABAD Study Date: 10/05/2016 10:44 AM BP: 123/78 mmHg * Patient Location: [facility] HR: 60 * : 1935 (M/d/yyyy) Gender: Female Height: 68 in * Age: 81 yrs Ethnicity: CA Weight: 139 lb * Ordering Physician: Artur * Performed By: Joelle Montano RCS * * Reason For Study: B/L Pleural Effusion * BSA: 1.8 m2 * -- Conclusions -- * The left ventricle is mildly dilated. * Left ventricular systolic function is severely reduced. * The right ventricular systolic function is reduced as assessed by tricuspid annular plane systolic excursion (TAPSE) (TAPSE <1.6 cm). * Mild aortic regurgitation. * At least moderate aortic stenosis which is possibly underestimated due to poor LV systolic function * There is moderate mitral regurgitation. * Right ventricular systolic pressure is elevated at 40-50mmHg. * There is a small vegetation or mass on the tricuspid valve. * There is what appears to be a small mobile mass on the tricuspid valve concerning for a vegetation. Clinical correlation recommended Procedure Details * A complete two-dimensional transthoracic echocardiogram was performed (2D, M-mode, Doppler and color flow Doppler). Left Ventricle * The left ventricle is mildly dilated. * There is normal left ventricular wall thickness. * Ejection Fraction = 20-25%. * Left ventricular systolic function is severely reduced. * Anterior wall is akinetic with severe hypokinesis of the remaining segments Right Ventricle * The right ventricle is normal size. * The right ventricular systolic function is reduced as assessed by tricuspid annular plane systolic excursion (TAPSE) (TAPSE <1.6 cm). Atria * The left atrial size is normal. * Right atrial size is normal. Mitral Valve * The mitral valve anatomy is normal. * There is moderate mitral regurgitation. * The mitral regurgitant jet is posteriorly directed, which is consistent with anterior leaflet pathology. Tricuspid Valve * There is a small vegetation or mass on the tricuspid valve. * There is what appears to be a small mobile mass on the tricuspid valve concerning for a vegetation. Clinical correlation recommended * There is mild tricuspid regurgitation. * Right ventricular systolic pressure is elevated at 40-50mmHg. Aortic Valve * Heavily calcified with reduced mobility * At least moderate aortic stenosis which is possibly underestimated due to poor LV systolic function * Mild aortic regurgitation. Great Vessels * The aortic root is normal size. Pericardium/Pleural * There is no pericardial effusion. MMode 2D Measurements and Calculations IVSd 1.0 cm IVSs 1.2 cm LVIDd 5.7 cm LVIDs 4.9 cm LVPWd 1.0 cm LVPWs 1.3 cm IVS/LVPW 0.99 FS 13.8 % EDV(Teich) 160.2 ml ESV(Teich) 113.6 ml EF(Teich) 29.1 % EDV(cubed) 185.4 ml ESV(cubed) 118.7 ml EF(cubed) 36.0 % % IVS thick 16.1 % % LVPW thick 21.5 % LV mass(C)d 237.8 grams LV mass(C)dI 135.8 grams/m\S\2 LV mass(C)s 236.3 grams LV mass(C)sI 134.9 grams/m\S\2 CO(Teich) 2.7 l/min CI(Teich) 1.5 l/min/m\S\2 SV(Teich) 46.6 ml SI(Teich) 26.6 ml/m\S\2 CO(cubed) 3.9 l/min CI(cubed) 2.2 l/min/m\S\2 SV(cubed) 66.7 ml SI(cubed) 38.1 ml/m\S\2 Ao root diam 3.6 cm Ao root area 10.0 cm\S\2 LA dimension 3.8 cm LA/Ao 1.1 LVOT diam 2.5 cm LVOT area 4.7 cm\S\2 LVAd ap4 52.6 cm\S\2 LVLd ap4 10.2 cm EDV(MOD-sp4) 225.0 ml LVAs ap4 42.5 cm\S\2 LVLs ap4 9.4 cm ESV(MOD-sp4) 157.0 ml EF(MOD-sp4) 30.2 % LVAd ap2 55.8 cm\S\2 LVLd ap2 10.9 cm EDV(MOD-sp2) 236.0 ml LVAs ap2 44.5 cm\S\2 LVLs ap2 10.5 cm ESV(MOD-sp2) 157.0 ml EF(MOD-sp2) 33.5 % CO(MOD-sp4) 3.9 l/min CI(MOD-sp4) 2.3 l/min/m\S\2 SV(MOD-sp4) 68.0 ml SI(MOD-sp4) 38.8 ml/m\S\2 CO(MOD-sp2) 4.6 l/min CI(MOD-sp2) 2.6 l/min/m\S\2 SV(MOD-sp2) 79.0 ml SI(MOD-sp2) 45.1 ml/m\S\2 Doppler Measurements and Calculations MV E max aileen 109.1 cm/sec MV P1/2t max aileen 136.3 cm/sec MV P1/2t 63.5 msec MVA(P1/2t) 3.5 cm\S\2 MV dec slope 629.2 cm/sec\S\2 MV dec time 0.17 sec Ao V2 max 326.4 cm/sec Ao max PG 42.6 mmHg Ao max PG (full) 41.3 mmHg Ao V2 mean 221.9 cm/sec Ao mean PG 22.7 mmHg Ao mean PG (full) 22.0 mmHg Ao V2 VTI 70.8 cm MIRACLE(I,A) 0.79 cm\S\2 MIRACLE(I,D) 0.79 cm\S\2 MIRACLE(V,A) 0.81 cm\S\2 MIRACLE(V,D) 0.81 cm\S\2 AI max aileen 342.5 cm/sec AI max PG 47.0 mmHg AI dec slope 127.8 cm/sec\S\2 AI P1/2t 785.3 msec LV V1 max PG 1.3 mmHg LV V1 mean PG 0.68 mmHg LV V1 max 56.1 cm/sec LV V1 mean 38.5 cm/sec LV V1 VTI 11.9 cm SV(Ao) 704.8 ml SI(Ao) 402.5 ml/m\S\2 SV(LVOT) 56.3 ml SI(LVOT) 32.1 ml/m\S\2 PA V2 max 85.8 cm/sec PA max PG 3.0 mmHg PI max aileen 113.4 cm/sec PI max PG 5.1 mmHg PI dec slope 136.5 cm/sec\S\2 PI P1/2t 243.4 msec TR max aileen 279.6 cm/sec
[2016-10-05] MEDS ORDERED: SODIUM CHLORIDE 0.65% NA SOLN 45 ML (OCEAN) PRN (19:00)
[2016-10-05 19:06] VITALS: BP 125/75; PULSE 61; TEMP 36.6; O2SAT 96
[2016-10-05] MEDS: DOXYCYCLINE HYCLATE 100 MG CAP PO SCH (21:03)
[2016-10-05] MEDS: DOCUSATE SODIUM 100 MG CAP PO SCH (21:04)
[2016-10-06] VITALS (24 sets, daily range): BP systolic 118–147; BP diastolic 55–86; PULSE 55–72; TEMP 36.3–37; O2SAT 92–98
[2016-10-06] MEDS ORDERED: NURSING VERBAL MED ORDER ONE (02:45)
[2016-10-06] MEDS ORDERED: HYDROCORTISONE 1% CR 30 GM TUBE EXT PRN (03:00)
[2016-10-06] MEDS: LEVOTHYROXINE 75 MCG TAB PO SCH (05:53)
[2016-10-06 07:08] LABS: BUN/CREATININE RATIO 4.2 (10-20); CALCIUM 8.9 mg/dl (8.5-10.1); CREATININE 5.6 mg/dl (0.60-1.20); POTASSIUM 3.6 mmol/L (3.5-5.1)
--- NOTE | 2016-10-06 07:21 | Surgery Progress Note ---
Subjective Date of Service: Oct 06, 2016. Pt. denies CP and states her breathing is comfortable. Objective Vitals Date Time Temp Pulse Resp B/P Pulse Ox O2 Delivery O2 Flow Rate FiO2 10/06/16 04:00 Room Air 10/06/16 04:00 36.3 56 16 135/78 95 Room Air 10/06/16 00:17 36.7 65 18 118/70 92 Room Air 10/06/16 00:00 Room Air 10/05/16 20:00 Room Air 10/05/16 19:06 36.6 61 17 125/75 96 Room Air 10/05/16 16:07 36.6 61 16 134/72 96 Room Air 10/05/16 15:15 Room Air 10/05/16 12:15 Room Air 10/05/16 12:10 37.1 56 18 121/68 95 Room Air 10/05/16 08:00 Room Air 10/05/16 07:39 36.8 55 18 124/75 95 Room Air Physical Exam General: + well developed, + well nourished, No distress CV: + RRR Pulmonary: + pertinent finding (BS are decreaseed at bases), No accessory muscle use, No respiratory distress Neurologic: + alert & oriented x 3 Assessment & Plan 81 year old female with bilateral pleural effusions -decubitus CXR performed (10/05/16) which shows that effusions are small -plans noted for pt. to be transitioned to HD 3 x per week: -this may help improve pleural effusions -continue to follow clinically as well as radiographically but for now will hold off on thoracentesis
--- NOTE | 2016-10-06 07:58 | Progress Note ---
Subjective Date of Service: late entry for visit October 05, 2016. Subjective Pt evaluation today including: conversation w/ patient, physical exam, chart review, lab review, conversation w/ sales consultant (CT surgery) Pain: denies PO Intake: normal tele stable overnight pt c/o copious sinus and nasal drainage no sinus pain persistent cough productive of sputum (green) denies any orthopnea, dyspnea, sob today very upset that her medication reconciliation was not corrected today states she has been compliant w/ synthroid at home Problem List Medical Problems: (1) Bilateral pleural effusion Status: Acute (2) Dyspnea on exertion Status: Acute (3) Left sided chest pain Status: Acute (4) Precordial chest pain Status: Acute (5) Renal failure (ARF), acute on chronic Status: Acute (6) Renal insufficiency Status: Acute Review of Systems Constitutional: No fever Cardiac: No chest pain Abdomen: No pain Objective Vital Signs Date Time Temp Pulse Resp B/P Pulse Ox O2 Delivery O2 Flow Rate FiO2 10/06/16 04:00 Room Air 10/06/16 04:00 36.3 56 16 135/78 95 Room Air 10/06/16 00:17 36.7 65 18 118/70 92 Room Air 10/06/16 00:00 Room Air 10/05/16 20:00 Room Air 10/05/16 19:06 36.6 61 17 125/75 96 Room Air 10/05/16 16:07 36.6 61 16 134/72 96 Room Air 10/05/16 15:15 Room Air 10/05/16 12:15 Room Air 10/05/16 12:10 37.1 56 18 121/68 95 Room Air 10/05/16 08:00 Room Air 10/05/16 07:39 36.8 55 18 124/75 95 Room Air Physical Exam General Appearance: no apparent distress ENT: pharynx normal, + nasal drainage Neck: + JVD Respiratory/Chest: lungs clear, no respiratory distress, no accessory muscle use, + decreased breath sounds (right base (mild)) Cardiovascular: regular rate, rhythm, no gallop, + systolic murmur (3/6 RUSB/ apex) Abdomen: normal bowel sounds, non tender, soft, no organomegaly Extremities: no pedal edema Laboratory Results Last 24 Hours Test 10/06/16 05:25 Assessment and Plan 81yo female with: 1. dyspnea, orthopnea - suspect due to CHF/ESRD. Pleural effusions could be playing a role but they are not that large. Doubt VTE but on differential. s/p HD yesterday; plan for HD again tomorrow. If symptoms improve with dialysis then volume overload was the culprit. 2. acute/chronic systolic CHF - last echo was in fall 2015 showed EF < 30%. Repeat echo pending. Dialysis to help with this. Cont BB. 3. ESRD on HD - appreciate nephrology consult. To have HD in AM. 4. hypothyroidism - TSH 07/2016 was elevated and repeat TSH again elevated. Will increase to 75mcg 3 days/week and 50mcg 4 days/week. Repeat TSH 6 weeks. 5. pleural effusions - consulted thoracic surgery. Left sided is quite small. Right side is larger than left, but unsure if the fluid is large enough to safely tap. To follow for now. 6. pulmonary HTN on last echo - need to asses for ambulatory O2 needs at d/c. 7. 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 8. a. fib - rates controlled. In NSR on amiodarone. 9. DVT proph - low dose heparin 5000 BID in am. 10. probable acute sinusitis - start doxy 100 BID. add zakia BID add mucinex BID d/c home tomorrow after HD?? Discharge planning: home
[2016-10-06] MEDS ORDERED: CHOLECALCIFEROL 1000 INTER.UNIT TAB PO SCH (09:00)
[2016-10-06] MEDS: FEXOFENADINE HCL 60 MG TAB PO SCH ×2 (09:00→21:05)
[2016-10-06] MEDS: AMIODARONE 200 MG TAB PO SCH (09:00)
[2016-10-06] MEDS: CARVEDILOL 12.5 MG TAB PO SCH ×2 (09:00→21:04)
[2016-10-06] MEDS: CHOLECALCIFEROL 1000 INTER.UNIT TAB PO SCH (09:27)
[2016-10-06] MEDS: GUAIFENESIN 600 MG TABCR PO SCH ×2 (09:27→21:03)
[2016-10-06] MEDS: NEPHROCAPS PO SCH (09:28)
[2016-10-06] MEDS: CALCIUM CARBONATE 500 MG CHEWABLE PO SCH ×2 (09:28→16:58)
[2016-10-06] MEDS: ASPIRIN 81 MG ECTAB PO SCH (09:28)
[2016-10-06] MEDS: DOXYCYCLINE HYCLATE 100 MG CAP PO SCH ×2 (09:31→21:03)
[2016-10-06] MEDS: LORAZEPAM 1 MG TAB PO PRN (09:44)
[2016-10-06] MEDS ORDERED: EPOETIN ALFA INJ 5,000 UNITS in SYRINGE 0 ML IV. ONE (12:00)
--- NOTE | 2016-10-06 12:55 | Dialysis Progress Note ---
Hemodialysis Note Date of Service Oct 06, 2016. Chief Complaint Follow-up for end-stage renal disease on hemodialysis. Tomas Harley was seen and examined during dialysis this morning. She has been tolerating dialysis well, no hypotensive episode, dizziness or lightheadedness. Blood pressure and volume status stable. She is need bothered by upper airway congestion and cough but denies significant shortness of breath. Review of Systems A complete review of systems was performed. Pertinent positives are noted above. All other systems are negative. Vital Signs Last 8 Hrs Date Time Temp Pulse Resp B/P Pulse Ox O2 Delivery O2 Flow Rate FiO2 10/06/16 12:30 55 131/76 10/06/16 12:15 60 129/74 10/06/16 12:00 67 130/66 10/06/16 11:45 63 140/64 10/06/16 11:30 70 135/62 10/06/16 11:15 61 132/55 10/06/16 11:00 60 141/60 10/06/16 10:45 65 133/57 10/06/16 10:30 70 136/69 10/06/16 10:15 36.7 68 142/64 10/06/16 08:00 36.9 72 18 146/81 98 10/06/16 08:00 Room Air I & O 24-Hour Column 10/06/16 08:00 Intake Total 1194 ml Balance 1194 ml Last Recorded Weight Weight (Kilograms): 63.000 Physical Exam GENERAL: Elderly female, AAA x 3, pleasant, healthy-appearing, not in any distress. NECK: Supple, no JVD. RESPIRATORY: Normal breathing efforts, no accessory muscle use, clear to auscultation bilaterally, no wheezes or rales. CARDIOVASCULAR: S1, S2 normal, rate rhythm regular. EXTREMITY: No lower extremity edema NEURO: speech fluent. PSYCHIATRY: Normal mood and judgment Social History Smoking Status: Never smoker Smokeless Tobacco Use: No Alcohol Use: none Drug Use: none Marital Status: Housing Status: lives alone Occupation: retired Laboratory Results Past 24 Hours 10/06/16 05:25 Test 10/06/16 05:25 Anion Gap 11.0 mmol/L (3-11) Est Creatinine Clear Calc Drug Dose 8.1 ml/min Estimated GFR () 7.7 Estimated GFR (Non- 6.7 BUN/Creatinine Ratio 4.2 (10-20) Calcium Level 8.9 mg/dl (8.5-10.1) Allergies Coded Allergies: Amoxicillin (Verified Allergy, Severe, UNKOWN, 10/03/16) Clavulanic Acid (Verified Allergy, Severe, UNKOWN, 10/03/16) Nortriptyline (Verified Allergy, Severe, UNKNOWN, 10/03/16) Aloe (Verified Allergy, Intermediate, rash, 10/03/16) Amitriptyline (Verified Allergy, Unknown, unknown, 10/03/16) Amlodipine (Verified Allergy, Unknown, UNKNOWN, 10/03/16) Atorvastatin (Verified Allergy, Unknown, 10/03/16) Azathioprine (Verified Allergy, Unknown, 10/03/16) Barbiturates (Verified Allergy, Unknown, TAKES DARVOCET AT HOME, 10/03/16) Beta Adrenergic Blockers (Verified Allergy, Unknown, -, 10/03/16) Butalbital (Verified Allergy, Unknown, TAKES DARVOCET AT HOME, 10/03/16) Cefaclor (Verified Allergy, Unknown, RECEIVED ANCEF PREOP IN OR (08/05/12) , 10/03/16) Cefuroxime (Unverified Allergy, Unknown, UNKNOWN, 10/03/16) Cephalosporins (Verified Allergy, Unknown, 10/03/16) Chlorpheniramine (Verified Allergy, Unknown, 10/03/16) Cholestyramine (Verified Allergy, Unknown, 10/03/16) Ciprofloxacin (Verified Allergy, Unknown, redness and swelling, 10/03/16) Clonidine (Verified Allergy, Unknown, unknown, 10/03/16) Codeine (Verified Allergy, Unknown, TAKES DARVOCET AT HOME, 10/03/16) Dextromethorphan (Verified Allergy, Unknown, TAKES DARVOCET AT HOME, ) Diltiazem (Verified Allergy, Unknown, 10/03/16) Escitalopram (Verified Allergy, Unknown, 10/03/16) Estrogens (Verified Allergy, Unknown, 10/03/16) Felodipine (Verified Allergy, Unknown, 10/03/16) Ferrous Sulfate (Verified Allergy, Unknown, UNKNOWN, 10/03/16) Hydralazine (Verified Allergy, Unknown, unknown, 10/03/16) Hydrochlorothiazide (Verified Allergy, Unknown, 10/03/16) Hydrocodone (Verified Allergy, Unknown, TAKES DARVOCET AT HOME, 10/03/16) Hydrocortisone (Verified Allergy, Unknown, unknown, 10/03/16) Hydromorphone (Verified Allergy, Unknown, unknown, 10/03/16) Ibuprofen (Verified Allergy, Unknown, TAKES EC ASA AT HOME, 10/03/16) Indapamide (Verified Allergy, Unknown, 10/03/16) Ipratropium (Verified Allergy, Unknown, UNKNOWN, 10/03/16) Isosorbide Nitrate (Verified Allergy, Unknown, UNKNOWN, 10/03/16) Ketoconazole (Verified Allergy, Unknown, unknown, 10/03/16) Lisinopril (Verified Allergy, Unknown, 10/03/16) Losartan (Verified Allergy, Unknown, 10/03/16) Mesalamine (Verified Allergy, Unknown, 10/03/16) Methyltestosterone (Verified Allergy, Unknown, 10/03/16) Metoprolol (Verified Allergy, Unknown, 10/03/16) NSAIDs (Verified Allergy, Unknown, though takes ecotrin at home, 10/03/16) Olsalazine (Verified Allergy, Unknown, 10/03/16) Phenylpropanolamine (Verified Allergy, Unknown, 10/03/16) Pilocarpine (Verified Allergy, Unknown, UNKNOWN, 10/03/16) Progestins (Verified Allergy, Unknown, 10/03/16) Propranolol (Verified Allergy, Unknown, UNKNOWN, 10/03/16) Propylene Glycol (Verified Allergy, Unknown, 10/03/16) Rabeprazole (Verified Allergy, Unknown, 10/03/16) Sertraline (Verified Allergy, Unknown, UNKNOWN, 10/03/16) Simvastatin (Verified Allergy, Unknown, 10/03/16) Sulfa Antibiotics (Verified Allergy, Unknown, UNKNOWN, 10/03/16) Sulfacetamide (Verified Allergy, Unknown, 10/03/16) Sulfur (Verified Allergy, Unknown, 10/03/16) Terazosin (Verified Allergy, Unknown, 10/03/16) Terfenadine (Verified Allergy, Unknown, 10/03/16) Torsemide (Unverified Allergy, Unknown, UNKNOWN, 10/03/16) Tramadol (Verified Allergy, Unknown, unknown, 10/03/16) Triamterene (Verified Allergy, Unknown, 10/03/16) Verapamil (Verified Allergy, Unknown, 10/03/16) Calcium Acetate (Verified Adverse Reaction, Mild, CONSTIPATION, 10/03/16) Uncoded Allergies: XANTHINE (Allergy, Unknown, TAKES DARVOCET AT HOME, 04/10/14) PT CLAIMS SHE CAN TOLERATE CAFFEINE Medications Current Inpatient Medications Medications (Trade) Dose Ordered Sig/Jose David Route Start Time Stop Time Status Last Admin Dose Admin Acetaminophen (Tylenol Tab) 650 mg Q4H PRN PO 10/03/16 21:15 11/02/16 21:14 Zolpidem Tartrate (Ambien Tab) 5 mg HSZ PRN PO 10/03/16 21:15 11/02/16 21:14 Ondansetron HCl (Zofran Inj) 4 mg Q6H PRN IV 10/03/16 21:15 11/02/16 21:14 Amiodarone HCl (Cordarone Tab) 200 mg QAM PO 10/04/16 09:00 11/03/16 08:59 10/05/16 08:10 200 MG Aspirin (Ecotrin Tab) 81 mg QAM PO 10/04/16 09:00 11/03/16 08:59 10/06/16 09:28 81 MG Docusate Sodium (coLACE CAP) 100 mg QPM PO 10/04/16 21:00 11/03/16 20:59 10/05/16 21:04 100 MG Lorazepam (Ativan Tab) 1 mg TID PRN PO 10/04/16 08:30 11/03/16 08:29 10/06/16 09:44 1 MG Carvedilol (Coreg Tab) 18.75 mg BID PO 10/04/16 10:30 11/03/16 10:29 10/05/16 21:05 18.75 MG Calcium Carbonate (Tums Chew Tab) 1,500 mg TIDM PO 10/05/16 11:30 11/04/16 11:29 10/06/16 09:28 1,500 MG Vitamin B Complex/ Vit C/Folic Acid (Nephrocaps) 1 cap QAM PO 10/06/16 09:00 11/05/16 08:59 10/06/16 09:28 1 CAP Fexofenadine HCl (Macy Tab) 60 mg BID PO 10/05/16 14:15 4/30/17 14:14 10/06/16 09:00 60 MG Guaifenesin (Mucinex Contr Rel Tab) 600 mg Q12 PO 10/05/16 14:15 11/04/16 14:14 10/06/16 09:27 600 MG Cholecalciferol (Vitamin D Tab) 5,000 inter.unit QAM PO 10/06/16 09:00 11/05/16 08:59 10/06/16 09:27 5,000 INTER.UNIT Doxycycline Hyclate (Vibramycin Cap) 100 mg BID PO 10/05/16 19:30 10/15/16 19:29 10/06/16 09:31 100 MG Sodium Chloride ([place]) 2 sprays Q1H PRN NA 10/05/16 19:00 11/04/16 18:59 Levothyroxine Sodium (Synthroid Tab) 50 mcg SuMoWeFr@0600 PO 10/07/16 06:00 11/06/16 05:59 Levothyroxine Sodium (Synthroid Tab) 75 mcg TuThSa@0600 PO 10/06/16 06:00 11/05/16 05:59 10/06/16 05:53 75 MCG Hydrocortisone (Hydrocortisone 1% Crm) 1 appln Q4H PRN EXT 10/06/16 03:00 11/05/16 02:59 10/06/16 03:46 1 APPLN Impression (1) End stage renal disease (2) Pleural effusion on left (3) Anemia (4) Secondary hyperparathyroidism of renal origin (5) Hypertension Cherri is a 81-year-old female with end-stage renal disease on hemodialysis on Saturday and Saturday at [facility] dialysis unit, primary tipple repairer is Dr. Solorzano. She was admitted to the hospital with shortness of breath and found to have left sided pleural effusion. She was also complaining of some upper airway condition and cough and was started on doxycycline. Blood culture before antibiotics started x4 was negative. Her shortness of breath improved after dialysis treatment. She was seen by ID pulmonology and decided not to do any diagnostic or therapeutic thoracentesis as the effusion is very small. plan to continue to monitor for now. overall she is feeling better with dialysis treatment. She had echo done on admission and there was a concern for questionable of mass on tricuspid valve. She currently denies any night sweat, fever or chills. She has a right IJ tunnel dialysis catheter. Left radiocephalic AV fistula was placed before which had primary failure now planned tentatively to have left brachiocephalic AV fistula placed by in near future. Recommendations --Currently tolerating dialysis well, ultra filtration as tolerated, volume status and blood pressure stable --Continue to monitor over the weekend and plan for next dialysis on Saturday as her regular schedule -- avoid IV fluid, dose medications for GFR less than 10, continue on renal vitamins daily. --Okay to do CT chest with IV contrast for further evaluation of the tricuspid valve as she is currently end-stage renal disease for last several months and there is no chance for recovery of her renal function . will follow
[2016-10-06] MEDS ORDERED: OPTIRAY 320 IV PRN (13:30)
--- NOTE | 2016-10-06 15:13 | DIAGNOSTIC IMAGING REPORT ---
CT ANGIOGRAPHY OF THE CHEST, PULMONARY EMBOLUS PROTOCOL CLINICAL HISTORY: Dyspnea. Bilateral pleural effusions. COMPARISON STUDY: Chest CT July 18, 2012, PET/CT August 11, 2014 and chest radiograph October 05, 2016. TECHNIQUE: Following IV administration of 89 mL of Optiray-320, helical axial images of the chest were obtained utilizing the pulmonary embolus protocol. Maximal intensity projections and sagittal and coronal reformats were viewed on an independent 3D workstation. IV contrast was administered without complication. CT DOSE: 219.25 mGy.cm FINDINGS: There are multiple ill-defined apparent filling defects within the distal right pulmonary artery extending into the right middle and lower lobe segmental branches. This could reflect mixing artifact or pulmonary emboli. No left-sided pulmonary emboli are identified. Moderate right and small left pleural effusions are present. There is extensive right lower lobe airspace opacity with volume loss. There is also right middle lobe airspace opacity with volume loss. Hazy left basilar opacity is noted. This favors atelectasis. There is no pneumothorax. Marked cardiomegaly is noted. There is reflux of contrast into the IVC and hepatic veins which are dilated. There is no pericardial effusion. Bony thorax and upper abdomen are unremarkable. A dual lumen right internal jugular catheter is in place. IMPRESSION: 1. Multiple ill-defined apparent filling defects within the distal right pulmonary artery extending into the right middle and lower lobe segmental branches. The appearance raises the possibility of mixing artifact although pulmonary emboli could appear similar. A short-term follow-up repeat PE protocol chest CT could be obtained as it is not possible to differentiate between these 2 possibilities on this exam. 2. Moderate right and small left pleural effusions. Extensive right middle and lower lobe opacity with volume loss could reflect atelectasis or consolidation. 3. Marked cardiomegaly. Reflux of contrast into the IVC and hepatic veins suggests right heart dysfunction. Electronically signed by: Jaime Li M.D. 10/06/2016 3:12 PM Dictated Date/Time: 10/06/2016 2:58 PM
[2016-10-06] MEDS: DOCUSATE SODIUM 100 MG CAP PO SCH (21:04)
--- NOTE | 2016-10-06 21:24 | Progress Note ---
Subjective Date of Service: Oct 06, 2016. Subjective Pt evaluation today including: conversation w/ patient, physical exam, chart review, lab review, review of studies (CT chest), conversation w/ software developer consultant ( radiology, nephrology, cardiology), review of inpatient medication list Pain: denies PO Intake: normal telemetry stable overnight no new issues still with sinus & nasal drainage along with cough and mucous production no sinus pain or headaches no c/o dyspnea or sob Problem List Medical Problems: (1) Bilateral pleural effusion Status: Acute (2) Dyspnea on exertion Status: Acute (3) Left sided chest pain Status: Acute (4) Precordial chest pain Status: Acute (5) Renal failure (ARF), acute on chronic Status: Acute (6) Renal insufficiency Status: Acute Review of Systems Constitutional: No chills, No fever ENT: + nasal symptoms, + sore throat Respiratory: + cough, + see HPI Cardiac: + orthopnea, No PND, No chest pain, No edema Abdomen: No pain Objective Vital Signs Date Time Temp Pulse Resp B/P Pulse Ox O2 Delivery O2 Flow Rate FiO2 10/06/16 20:21 36.9 66 18 143/77 97 Room Air 10/06/16 16:00 Room Air 10/06/16 15:42 36.8 71 18 147/86 96 Room Air 10/06/16 14:06 36.8 65 140/62 10/06/16 14:00 66 130/68 10/06/16 13:45 62 133/71 10/06/16 13:30 60 135/75 10/06/16 13:15 55 122/70 10/06/16 13:00 57 130/71 10/06/16 12:45 56 137/80 10/06/16 12:30 55 131/76 10/06/16 12:15 60 129/74 10/06/16 12:00 67 130/66 10/06/16 11:45 63 140/64 10/06/16 11:30 70 135/62 10/06/16 11:15 61 132/55 10/06/16 11:00 60 141/60 10/06/16 10:45 65 133/57 10/06/16 10:30 70 136/69 10/06/16 10:15 36.7 68 142/64 10/06/16 08:00 36.9 72 18 146/81 98 10/06/16 08:00 Room Air 10/06/16 04:00 Room Air 10/06/16 04:00 36.3 56 16 135/78 95 Room Air 10/06/16 00:17 36.7 65 18 118/70 92 Room Air 10/06/16 00:00 Room Air Physical Exam General Appearance: no apparent distress ENT: + nasal drainage, + pharyngeal erythema Neck: + JVD Respiratory/Chest: no respiratory distress, no accessory muscle use, + decreased breath sounds (right base) Cardiovascular: regular rate, rhythm, no gallop, + systolic murmur (3/6 holosystolic RUSB), + gallop/S3 Abdomen: normal bowel sounds, non tender, soft, no organomegaly Extremities: no pedal edema Neurologic/Psychiatric: alert, oriented x 3 Laboratory Results Last 24 Hours Test 10/06/16 05:25 Sodium Level 133 mmol/L Potassium Level 3.6 mmol/L Chloride Level 92 mmol/L Carbon Dioxide Level 30 mmol/L Anion Gap 11.0 mmol/L Blood Urea Nitrogen 23 mg/dl Creatinine 5.60 mg/dl Est Creatinine Clear Calc Drug Dose 8.1 ml/min Estimated GFR () 7.7 Estimated GFR (Non- 6.7 BUN/Creatinine Ratio 4.2 Random Glucose 91 mg/dl Calcium Level 8.9 mg/dl Assessment and Plan 81yo female with: 1. dyspnea, orthopnea - likely due to volume overload from CHF/ESRD. Pleural effusions are fairly small so doubt it is the primary culprit in her symptoms. ?small PEs on CTA today. Spoke with radiology - felt to likely represent artifact vs true PEs. With that said will obtain LE dopplers to r/o DVT. If + for DVT will begin anticoagulation. 2. acute/chronic systolic CHF - overall stable/improved. Net neg 3 L since admission. Repeat echo this admission with EF 25%. Dialysis to help with this. Cont BB. 3. ESRD on HD - appreciate nephrology consult. s/p HD today. to transition to 3 days/week dialysis soon. 4. hypothyroidism - TSH 07/2016 was elevated and repeat TSH again elevated. INcreased dose to 75mcg 3 days/week and 50mcg 4 days/week. Repeat TSH 6 weeks. 5. pleural effusions - consulted thoracic surgery. Left sided is quite small. Right side is larger than left, but unsure if the fluid is large enough to safely tap. Thoracic surgery to follow for now. 6. pulmonary HTN on last echo - need to asses for ambulatory O2 needs at d/c. 7. 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 No evidence of recurrence on CT today. 8. a. fib - rates controlled. In NSR on amiodarone. 9. DVT proph - low dose heparin 5000 BID. 10. probable acute sinusitis - day #2 doxy 100 BID. cont zakia BID cont mucinex BID add nasal steroid saline nasal drops prn 11. ? PEs on CTA today - see discussion above. Check LE venous dopplers for DVT. 12. ? tricuspid valve vegetation - her blood cultures are negative and she has no symptoms of endocarditis. No evidence of septic emboli on CT chest. If the valve lesion is not endocarditis it could be valve thickening, etc. I spoke with her primary zinc plate grainer, Dr. Wallis, re: her echo and the findings. To follow for now. 13. right-sided infiltrates on CT - likely atelectasis due to pleural effusion but bears watching carefully. tx to med/surg Continued [facility] stay due to: other (volume overload ) Discharge planning: home
[2016-10-06] MEDS: TRIAMCINOLONE ACET NASAL SPRAY 10.8ML BTL NAE SCH (21:41)
--- NOTE | 2016-10-06 22:48 | DIAGNOSTIC IMAGING REPORT ---
BILATERAL LOWER EXTREMITY VENOUS DOPPLER CLINICAL HISTORY: Possible pulmonary emboli. Dyspnea. COMPARISON STUDY: Bilateral lower extremity venous Doppler June 22, 2008. TECHNIQUE: Sonography of the deep venous system of the bilateral lower extremities was performed. Compression and augmentation were evaluated. FINDINGS: The bilateral common femoral, superficial femoral and popliteal veins were compressible. Augmentation was normal. Flow was shown within the deep calf vessels. IMPRESSION: No evidence of deep venous thrombus within the bilateral lower extremities. Electronically signed by: Jaime Li M.D. 10/06/2016 10:46 PM Dictated Date/Time: 10/06/2016 10:45 PM
[2016-10-07 00:39] VITALS: BP 133/80
[2016-10-07] MEDS: LORAZEPAM 1 MG TAB PO PRN ×3 (01:55→20:32)
[2016-10-07 04:24] VITALS: BP 138/84; PULSE 67; TEMP 36.7; O2SAT 94
[2016-10-07] MEDS: LEVOTHYROXINE 50 MCG TAB PO SCH (05:45)
[2016-10-07 07:37] VITALS: BP 148/98; PULSE 66; TEMP 36.4; O2SAT 95
--- NOTE | 2016-10-07 07:39 | Surgery Progress Note ---
Subjective Date of Service: Oct 07, 2016. Pt. state breathing feels good--no dyspnea or SOB. Objective Vitals Date Time Temp Pulse Resp B/P Pulse Ox O2 Delivery O2 Flow Rate FiO2 10/07/16 04:24 36.7 67 18 138/84 94 10/07/16 04:00 Room Air 10/07/16 00:39 133/80 10/07/16 00:00 Room Air 10/06/16 23:55 37.0 66 16 95 10/06/16 20:28 97 Room Air 10/06/16 20:21 36.9 66 18 143/77 97 Room Air 10/06/16 16:00 Room Air 10/06/16 15:42 36.8 71 18 147/86 96 Room Air 10/06/16 14:06 36.8 65 140/62 10/06/16 14:00 66 130/68 10/06/16 13:45 62 133/71 10/06/16 13:30 60 135/75 10/06/16 13:15 55 122/70 10/06/16 13:00 57 130/71 10/06/16 12:45 56 137/80 10/06/16 12:30 55 131/76 10/06/16 12:15 60 129/74 10/06/16 12:00 67 130/66 10/06/16 11:45 63 140/64 10/06/16 11:30 70 135/62 10/06/16 11:15 61 132/55 10/06/16 11:00 60 141/60 10/06/16 10:45 65 133/57 10/06/16 10:30 70 136/69 10/06/16 10:15 36.7 68 142/64 10/06/16 08:00 36.9 72 18 146/81 98 10/06/16 08:00 Room Air Physical Exam General: + well developed, + well nourished, No distress Pulmonary: + pertinent finding (decreased at bases), No accessory muscle use, No respiratory distress Neurologic: + alert & oriented x 3 Assessment & Plan 81 year old female with bilateral pleural effusions -decubitus CXR performed (10/05/16) which shows that effusions are small -plans noted for pt. to be transitioned to HD 3 x per week: -this may help improve pleural effusions -CT scan results noted; small left effusion noted; effusion on right appears moderate; concern noted for possible PE -for now will hold off on thoracentesis and see if increased HD schedule improves effusions
[2016-10-07] MEDS: CALCIUM CARBONATE 500 MG CHEWABLE PO SCH ×3 (08:11→17:22)
[2016-10-07] MEDS: NEPHROCAPS PO SCH (08:11)
[2016-10-07] MEDS: ASPIRIN 81 MG ECTAB PO SCH (08:11)
[2016-10-07] MEDS: GUAIFENESIN 600 MG TABCR PO SCH ×2 (08:11→20:32)
[2016-10-07] MEDS: FEXOFENADINE HCL 60 MG TAB PO SCH ×2 (08:12→20:33)
[2016-10-07] MEDS: CARVEDILOL 12.5 MG TAB PO SCH ×2 (08:12→20:36)
[2016-10-07] MEDS: DOXYCYCLINE HYCLATE 100 MG CAP PO SCH ×2 (08:12→20:36)
[2016-10-07] MEDS: CHOLECALCIFEROL 1000 INTER.UNIT TAB PO SCH (08:13)
[2016-10-07] MEDS: TRIAMCINOLONE ACET NASAL SPRAY 10.8ML BTL NAE SCH (08:14)
[2016-10-07] MEDS: AMIODARONE 200 MG TAB PO SCH (09:00)
[2016-10-07 11:33] VITALS: BP_SYST 125; BP_SYST 126; BP_DIAS 77; PULSE 55; PULSE 58; TEMP 36.5; TEMP 36.7; O2SAT 94; O2SAT 98
--- NOTE | 2016-10-07 12:22 | Nephrology Progress Note ---
Nephrology Progress Note Date of Service Oct 07, 2016. Chief Complaint Follow-up for end-stage renal disease on hemodialysis. Tomas Harley was seen and examined in her room this morning. She continues to be bothered by upper airway condition, throat irritation and cough, talking makes her symptoms worsen. Blood pressure volume status and electrolyte stable. Review of Systems A complete review of systems was performed. Pertinent positives are noted above. All other systems are negative. Vital Signs Last 8 Hrs Date Time Temp Pulse Resp B/P Pulse Ox O2 Delivery O2 Flow Rate FiO2 10/07/16 11:33 36.5 55 16 125/77 94 Room Air 10/07/16 08:00 Room Air 10/07/16 07:37 36.4 66 16 148/98 95 Room Air 10/07/16 04:24 36.7 67 18 138/84 94 I & O 24-Hour Column 10/07/16 08:00 Intake Total 730 ml Output Total 2500 ml Balance -1770 ml Last Recorded Weight Weight (Kilograms): 64.000 Physical Exam GENERAL: Elderly female, AAA x 3, pleasant, healthy-appearing, not in any distress. NECK: Supple, no JVD. RESPIRATORY: Normal breathing efforts, no accessory muscle use, clear to auscultation bilaterally, no wheezes or rales. CARDIOVASCULAR: S1, S2 normal, rate rhythm regular. EXTREMITY: No lower extremity edema NEURO: speech fluent. PSYCHIATRY: Normal mood and judgment Family History Cancer Gallbladder disease Hypertension Social History Smoking Status: Never smoker Smokeless Tobacco Use: No Alcohol Use: none Drug Use: none Marital Status: Housing Status: lives alone Occupation: retired Allergies Coded Allergies: Amoxicillin (Verified Allergy, Severe, UNKOWN, 10/03/16) Clavulanic Acid (Verified Allergy, Severe, UNKOWN, 10/03/16) Nortriptyline (Verified Allergy, Severe, UNKNOWN, 10/03/16) Aloe (Verified Allergy, Intermediate, rash, 10/03/16) Amitriptyline (Verified Allergy, Unknown, unknown, 10/03/16) Amlodipine (Verified Allergy, Unknown, UNKNOWN, 10/03/16) Atorvastatin (Verified Allergy, Unknown, 10/03/16) Azathioprine (Verified Allergy, Unknown, 10/03/16) Barbiturates (Verified Allergy, Unknown, TAKES DARVOCET AT HOME, 10/03/16) Beta Adrenergic Blockers (Verified Allergy, Unknown, -, 10/03/16) Butalbital (Verified Allergy, Unknown, TAKES DARVOCET AT HOME, 10/03/16) Cefaclor (Verified Allergy, Unknown, RECEIVED ANCEF PREOP IN OR (08/05/12) , 10/03/16) Cefuroxime (Unverified Allergy, Unknown, UNKNOWN, 10/03/16) Cephalosporins (Verified Allergy, Unknown, 10/03/16) Chlorpheniramine (Verified Allergy, Unknown, 10/03/16) Cholestyramine (Verified Allergy, Unknown, 10/03/16) Ciprofloxacin (Verified Allergy, Unknown, redness and swelling, 10/03/16) Clonidine (Verified Allergy, Unknown, unknown, 10/03/16) Codeine (Verified Allergy, Unknown, TAKES DARVOCET AT HOME, 10/03/16) Dextromethorphan (Verified Allergy, Unknown, TAKES DARVOCET AT HOME, ) Diltiazem (Verified Allergy, Unknown, 10/03/16) Escitalopram (Verified Allergy, Unknown, 10/03/16) Estrogens (Verified Allergy, Unknown, 10/03/16) Felodipine (Verified Allergy, Unknown, 10/03/16) Ferrous Sulfate (Verified Allergy, Unknown, UNKNOWN, 10/03/16) Hydralazine (Verified Allergy, Unknown, unknown, 10/03/16) Hydrochlorothiazide (Verified Allergy, Unknown, 10/03/16) Hydrocodone (Verified Allergy, Unknown, TAKES DARVOCET AT HOME, 10/03/16) Hydrocortisone (Verified Allergy, Unknown, unknown, 10/03/16) Hydromorphone (Verified Allergy, Unknown, unknown, 10/03/16) Ibuprofen (Verified Allergy, Unknown, TAKES EC ASA AT HOME, 10/03/16) Indapamide (Verified Allergy, Unknown, 10/03/16) Ipratropium (Verified Allergy, Unknown, UNKNOWN, 10/03/16) Isosorbide Nitrate (Verified Allergy, Unknown, UNKNOWN, 10/03/16) Ketoconazole (Verified Allergy, Unknown, unknown, 10/03/16) Lisinopril (Verified Allergy, Unknown, 10/03/16) Losartan (Verified Allergy, Unknown, 10/03/16) Mesalamine (Verified Allergy, Unknown, 10/03/16) Methyltestosterone (Verified Allergy, Unknown, 10/03/16) Metoprolol (Verified Allergy, Unknown, 10/03/16) NSAIDs (Verified Allergy, Unknown, though takes ecotrin at home, 10/03/16) Olsalazine (Verified Allergy, Unknown, 10/03/16) Phenylpropanolamine (Verified Allergy, Unknown, 10/03/16) Pilocarpine (Verified Allergy, Unknown, UNKNOWN, 10/03/16) Progestins (Verified Allergy, Unknown, 10/03/16) Propranolol (Verified Allergy, Unknown, UNKNOWN, 10/03/16) Propylene Glycol (Verified Allergy, Unknown, 10/03/16) Rabeprazole (Verified Allergy, Unknown, 10/03/16) Sertraline (Verified Allergy, Unknown, UNKNOWN, 10/03/16) Simvastatin (Verified Allergy, Unknown, 10/03/16) Sulfa Antibiotics (Verified Allergy, Unknown, UNKNOWN, 10/03/16) Sulfacetamide (Verified Allergy, Unknown, 10/03/16) Sulfur (Verified Allergy, Unknown, 10/03/16) Terazosin (Verified Allergy, Unknown, 10/03/16) Terfenadine (Verified Allergy, Unknown, 10/03/16) Torsemide (Unverified Allergy, Unknown, UNKNOWN, 10/03/16) Tramadol (Verified Allergy, Unknown, unknown, 10/03/16) Triamterene (Verified Allergy, Unknown, 10/03/16) Verapamil (Verified Allergy, Unknown, 10/03/16) Calcium Acetate (Verified Adverse Reaction, Mild, CONSTIPATION, 10/03/16) Uncoded Allergies: XANTHINE (Allergy, Unknown, TAKES DARVOCET AT HOME, 04/10/14) PT CLAIMS SHE CAN TOLERATE CAFFEINE Medications Current Inpatient Medications Medications (Trade) Dose Ordered Sig/Jose David Route Start Time Stop Time Status Last Admin Dose Admin Acetaminophen (Tylenol Tab) 650 mg Q4H PRN PO 10/03/16 21:15 11/02/16 21:14 Zolpidem Tartrate (Ambien Tab) 5 mg HSZ PRN PO 10/03/16 21:15 11/02/16 21:14 Ondansetron HCl (Zofran Inj) 4 mg Q6H PRN IV 10/03/16 21:15 11/02/16 21:14 Amiodarone HCl (Cordarone Tab) 200 mg QAM PO 10/04/16 09:00 11/03/16 08:59 10/07/16 09:00 200 MG Aspirin (Ecotrin Tab) 81 mg QAM PO 10/04/16 09:00 11/03/16 08:59 10/07/16 08:11 81 MG Docusate Sodium (coLACE CAP) 100 mg QPM PO 10/04/16 21:00 11/03/16 20:59 10/06/16 21:04 100 MG Lorazepam (Ativan Tab) 1 mg TID PRN PO 10/04/16 08:30 11/03/16 08:29 10/07/16 08:11 1 MG Carvedilol (Coreg Tab) 18.75 mg BID PO 10/04/16 10:30 11/03/16 10:29 10/07/16 08:12 18.75 MG Calcium Carbonate (Tums Chew Tab) 1,500 mg TIDM PO 10/05/16 11:30 11/04/16 11:29 10/07/16 11:30 1,500 MG Vitamin B Complex/ Vit C/Folic Acid (Nephrocaps) 1 cap QAM PO 10/06/16 09:00 11/05/16 08:59 10/07/16 08:11 1 CAP Fexofenadine HCl (Macy Tab) 60 mg BID PO 10/05/16 14:15 11/04/16 14:14 10/07/16 08:12 60 MG Guaifenesin (Mucinex Contr Rel Tab) 600 mg Q12 PO 10/05/16 14:15 11/04/16 14:14 10/07/16 08:11 600 MG Cholecalciferol (Vitamin D Tab) 5,000 inter.unit QAM PO 10/06/16 09:00 11/05/16 08:59 10/07/16 08:13 5,000 INTER.UNIT Doxycycline Hyclate (Vibramycin Cap) 100 mg BID PO 10/05/16 19:30 10/15/16 19:29 10/07/16 08:12 100 MG Sodium Chloride ([facility] Nasal [place]) 2 sprays Q1H PRN NA 10/05/16 19:00 4/30/17 18:59 Levothyroxine Sodium (Synthroid Tab) 50 mcg SuMoWeFr@0600 PO 10/07/16 06:00 11/06/16 05:59 10/07/16 05:45 50 MCG Levothyroxine Sodium (Synthroid Tab) 75 mcg TuThSa@0600 PO 10/06/16 06:00 11/05/16 05:59 10/06/16 05:53 75 MCG Hydrocortisone (Hydrocortisone 1% Crm) 1 appln Q4H PRN EXT 10/06/16 03:00 11/05/16 02:59 10/06/16 03:46 1 APPLN Ioversol (Optiray 320) 100 ml UD PRN IV 10/06/16 13:30 10/10/16 13:29 Triamcinolone Acetonide (Nasacort Allergy 24hr) 2 sprays DAILY MARYANA 10/06/16 21:30 11/05/16 21:29 10/07/16 08:14 2 SPRAYS Impression (1) End stage renal disease (2) Pleural effusion on left (3) Anemia (4) Secondary hyperparathyroidism of renal origin (5) Hypertension Cherri is a 81-year-old female with end-stage renal disease on hemodialysis on Saturday and Saturday at [facility] dialysis unit, primary technical services assistant is Dr. Solorzano. She was admitted to the hospital with shortness of breath and found to have left sided pleural effusion. She was also complaining of some upper airway condition and cough and was started on doxycycline. Blood culture before antibiotics started x4 was negative. Her shortness of breath improved after dialysis treatment. She was seen by ID pulmonology and decided not to do any diagnostic or therapeutic thoracentesis as the effusion is very small. plan to continue to monitor for now. overall she is feeling better with dialysis treatment. She had echo done on admission and there was a concern for questionable of mass on tricuspid valve. She currently denies any night sweat, fever or chills. She has a right IJ tunnel dialysis catheter. Left radiocephalic AV fistula was placed before which had primary failure now planned tentatively to have left brachiocephalic AV fistula placed by in near future. CT chest with contrast done yesterday was concerning for possible PE versus artifact. lower extremity Doppler was negative for DVT. found to have moderate right pleural and small left pleural effusion. pulmonary decided against any further intervention at this point. Recommendations --Currently blood pressure and electrolyte acceptable and no sign of significant volume overload --plan for dialysis tomorrow for 4 hours with UF as tolerated -- avoid IV fluid, dose medications for GFR less than 10, continue on renal vitamins daily. will follow
[2016-10-07 14:40] VITALS: BP 148/83; PULSE 62; TEMP 36.9; O2SAT 96
[2016-10-07] MEDS ORDERED: NURSING VERBAL MED ORDER ONE (15:30)
[2016-10-07] MEDS ORDERED: COUGH DROP (SUGAR FREE) LOZ 24 LOZ/1 BOX ONE (15:37)
[2016-10-07] MEDS ORDERED: COUGH DROP (SUGAR FREE) LOZ 24 LOZ/1 BOX PO PRN (15:45)
[2016-10-07 19:28] LABS: PARTIAL THROMBOPLASTIN RATIO 1.2
[2016-10-07] MEDS ORDERED: HEPARIN IV BOLUS 5,000 UNIT in SYRINGE 0 ML IV ONE (20:20)
--- NOTE | 2016-10-07 20:36 | Progress Note ---
Subjective Date of Service: Oct 07, 2016. Subjective Pt evaluation today including: conversation w/ patient, physical exam, chart review, lab review, review of studies (echo, CTA chest, dopplers legs ), conversation w/ transportation consultant (pulmonary, nephrology ), review of inpatient medication list Pain: denies PO Intake: good telemetry with NSR overnight patient with infrequent episodes of coughing denies any dyspnea lengthy discussion had about anticoagulation -- she states "If I have to do it I will" asks about the new DOACs for anticoagulation Problem List Medical Problems: (1) Bilateral pleural effusion Status: Acute (2) Dyspnea on exertion Status: Acute (3) Left sided chest pain Status: Acute (4) Precordial chest pain Status: Acute (5) Renal failure (ARF), acute on chronic Status: Acute (6) Renal insufficiency Status: Acute Review of Systems Constitutional: No chills, No fever ENT: + sore throat Respiratory: + cough, + sputum, No dyspnea at rest, No wheezing Cardiac: No chest pain Abdomen: No pain Objective Vital Signs Date Time Temp Pulse Resp B/P Pulse Ox O2 Delivery O2 Flow Rate FiO2 10/07/16 16:00 Room Air 10/07/16 14:40 36.9 62 20 148/83 96 10/07/16 12:00 Room Air 10/07/16 11:33 36.5 55 16 125/77 94 Room Air 10/07/16 08:00 Room Air 10/07/16 07:37 36.4 66 16 148/98 95 Room Air 10/07/16 04:24 36.7 67 18 138/84 94 10/07/16 04:00 Room Air 10/07/16 00:39 133/80 10/07/16 00:00 Room Air 10/06/16 23:55 37.0 66 16 95 10/06/16 20:28 97 Room Air Physical Exam General Appearance: no apparent distress ENT: + pharyngeal erythema, + pertinent finding (left posterior buccal mucosa, just behind the last maxillary molar -- small outpouching noted that is red and swollen) Respiratory/Chest: no respiratory distress, no accessory muscle use, + decreased breath sounds (right base only) Cardiovascular: regular rate, rhythm, no gallop, + systolic murmur (3/6 RUSB), + gallop/S3 Abdomen: normal bowel sounds, non tender, soft, no organomegaly Extremities: no pedal edema Neurologic/Psychiatric: alert, oriented x 3 Laboratory Results Last 24 Hours Test 10/07/16 19:10 Activated Partial Thromboplast Time 31.9 SECONDS Partial Thromboplastin Ratio 1.2 Assessment and Plan 81yo female with: 1. dyspnea, orthopnea - considerations including her CHF/ESRD, pulmonary HTN, pleural effusions, PEs, etc. Pleural effusions are fairly small so doubt it is the primary culprit in her symptoms. ?small PEs on CTA done 10/06/16. Spoke with radiology - felt to likely represent artifact vs true PEs. LE dopplers negative for DVT. See below. 2. acute/chronic systolic CHF - overall stable/improved. Net neg 3 L since admission. Repeat echo this admission with EF 25%. Dialysis to help with this. Cont BB. 3. ESRD on HD - appreciate nephrology consult. HD tomorrow AM. to transition to 3 days/week dialysis soon. 4. hypothyroidism - TSH 07/2016 was elevated and repeat TSH again elevated. Increased dose to 75mcg 3 days/week and 50mcg 4 days/week. Repeat TSH 6 weeks. 5. pleural effusions - consulted thoracic surgery. Left sided is quite small. Right side is larger than left, but unsure if the fluid is large enough to safely tap. Could consider chest u/s to quantify the amount. Thoracic surgery to follow for now. 6. pulmonary HTN on last echo - need to asses for ambulatory O2 needs at d/c. 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 8. a. fib - in NSR on amiodarone. 9. DVT proph - stop SC heparin as she will be on systemic heparin. 10. probable acute sinusitis - day #3 doxy 100 BID. cont zakia BID, mucinex BID, nasal steroid, saline nasal drops prn 11. ? PEs on CTA with negative venous dopplers of legs - I have reviewed this issue with on-call pulmonary, radiology, and nephrology. Plan - systemic IV heparin for now. no coumadin just yet in the event she needs right lung tapped. consider repeat CTA chest in 1-2 days for definitive dx 12. ? tricuspid valve vegetation - her blood cultures are negative and she has no symptoms of endocarditis. No evidence of septic emboli on CT chest. If the valve lesion is not endocarditis it could be valve thickening, etc. I spoke with her primary etcher enameling, Dr. Wallis, re: her echo and the findings. To follow for now. 13. right-sided infiltrates on CT - likely atelectasis due to pleural effusion but bears watching carefully. 14. hyponatremia - 2nd to CKD/ESRD - improved. 15. anemia 2nd to ESRD/CKD - H/H stable; management per nephrology Continued [facility] stay due to: other (?PEs, right sided pleural effusion) Discharge planning: home
[2016-10-07] MEDS: HEPARIN 25,000 UNIT/500ML D5W 500 ML IV PRN (20:48)
[2016-10-07] MEDS: DOCUSATE SODIUM 100 MG CAP PO SCH (21:02)
[2016-10-07] MEDS: ACETAMINOPHEN 325 MG TAB PO PRN (21:55)
[2016-10-07 23:47] VITALS: BP 147/87; PULSE 64; TEMP 36.7; O2SAT 95
[2016-10-08] VITALS (21 sets, daily range): BP systolic 122–147; BP diastolic 74–92; PULSE 56–70; TEMP 36.6–37.1; O2SAT 95–96
[2016-10-08 03:50] LABS: PARTIAL THROMBOPLASTIN RATIO 3.1
[2016-10-08] MEDS: HEPARIN 25,000 UNIT/500ML D5W 500 ML IV PRN ×2 (05:10→18:53)
[2016-10-08] MEDS: LEVOTHYROXINE 50 MCG TAB PO SCH (05:57)
[2016-10-08] MEDS: AMIODARONE 200 MG TAB PO SCH (08:00)
[2016-10-08] MEDS: CARVEDILOL 12.5 MG TAB PO SCH ×2 (08:00→21:00)
[2016-10-08] MEDS: CALCIUM CARBONATE 500 MG CHEWABLE PO SCH ×3 (08:15→18:36)
[2016-10-08] MEDS: TRIAMCINOLONE ACET NASAL SPRAY 10.8ML BTL NAE SCH (08:15)
[2016-10-08] MEDS: LORAZEPAM 1 MG TAB PO PRN ×2 (08:16→21:50)
--- NOTE | 2016-10-08 08:28 | Surgery Progress Note ---
Subjective Date of Service: Oct 08, 2016. Pt. currently not sob. No CP. Objective Vitals Date Time Temp Pulse Resp B/P Pulse Ox O2 Delivery O2 Flow Rate FiO2 10/08/16 07:39 36.8 61 16 145/85 96 Room Air 10/08/16 00:00 Room Air 10/07/16 23:47 36.7 64 18 147/87 95 Room Air 10/07/16 20:00 Room Air 10/07/16 16:00 Room Air 10/07/16 14:40 36.9 62 20 148/83 96 10/07/16 12:00 Room Air 10/07/16 11:33 36.5 55 16 125/77 94 Room Air Physical Exam General: + well developed, + well nourished, No distress CV: + RRR Pulmonary: + pertinent finding (crackles noted at bases bilaterally with decreased BS R>L), No accessory muscle use, No respiratory distress Assessment & Plan 81 year old female with bilateral pleural effusions -decubitus CXR performed (10/05/16) which shows that effusions are small -plans noted for pt. to be transitioned to HD 3 x per week: -this may help improve pleural effusions -CT scan results noted (10/06/16); small left effusion noted; effusion on right appears moderate; concern noted for possible PE: -pt. now on heparin drip will continue to hold off on thoracentesis: -pt. fully anticoagulated with heparin -she is oxygenating well and noted to be stable -see if increased HD schedule improves effusions
[2016-10-08 08:32] LABS: HEMATOCRIT 32.6 % (37-47); MEAN CELL VOLUME 91.1 fL (80-100); MEAN CORPUSCULAR HEMOGLOBIN 29.6 pg (25-34); MEAN CORPUSCULAR HGB CONC 32.5 g/dl (32-36); MEAN PLATELET VOLUME 9.9 fL (7.4-10.4); PLATELET COUNT 384 K/uL (130-400); RED BLOOD COUNT 3.58 M/uL (4.2-5.4); WHITE BLOOD COUNT 7.21 K/uL (4.8-10.8)
[2016-10-08] MEDS: ACETAMINOPHEN 325 MG TAB PO PRN ×2 (10:30→15:55)
--- NOTE | 2016-10-08 12:07 | PROGRESS NOTE ---
DATE: 10/08/2016 SUBJECTIVE: Mrs. Roth says that she is feeling relatively well but is discouraged by the continuing concerns regarding most her medical issues. At the current time she denies having any chest pain or tightness and denies having any shortness of breath. She has an occasional, but nonproductive cough. She says that her appetite is fair. There have been no changes in that regard. She has no new symptoms of uremia or volume overload. OBJECTIVE: GENERAL: On physical exam when seen by me she was lying comfortably in bed in the dialysis unit. VITAL SIGNS: She is afebrile (36.8), her blood pressure 145/85 with a pulse of 57 and regular, respiratory rate is 16, her pulse ox 95%-96% on room air. SKIN: Shows somewhat of a sallow complexion. She has no obvious rash or infiltrative skin disease. She has a right IJ catheter which exits beneath the distal right clavicle. There is no tenderness over the subcutaneous tunnel. She has no discharge from the exit site. She has no palpable lymphadenopathy. HEAD: Normal. EYES: Grossly normal. The ocular fundi were not examined. EARS, NOSE, MOUTH AND THROAT: All relatively normal. Her oral mucosa membranes are moist. NECK: Supple. She has some minimal jugular venous distention at about 75 degrees. She has no carotid bruits and there is no thyromegaly. CHEST: Shows diminished breath sounds at the bases, but is otherwise clear with no wheezes, rales or rhonchi. CARDIAC: Shows a regular rhythm. S1 and S2 are normal. She has a grade 3/6 systolic murmur at the base radiating toward the neck as well as along the left sternal border and heard at the apex. The murmur is occasionally harsh and high pitch. ABDOMEN: Nontender. There is no organomegaly or masses. EXTREMITIES: Show no peripheral edema. NEUROLOGIC: Shows no asterixis or lateralizing neurologic changes. IMAGING: Her recent CT angiogram done on 10/06/2016 shows multiple ill-defined apparent filling defects within the distal right pulmonary artery extending into the right middle and lower lobe segmental branches. This raises the question of the potential pulmonary emboli, although the changes may simply be artifactual. On echocardiography, she does have an elevated pulmonary artery pressure. She still has a small left pleural effusion and a moderate right pleural effusion. There is concern about the possibility of consolidation or atelectasis involving the right middle and lower lobes. LABORATORY DATA: Pertinent laboratory work from today shows a white count of 7210. Her hemoglobin is 10.6, hematocrit 32.6, her platelet count 384,000. No clinical chemistries were done today. ASSESSMENT: As before. The findings on her CT angiogram raise the possibility of pulmonary emboli. Obviously the normal venous Doppler supports the fact that it is not likely that these are coming from her legs at least not that there is a persistent source. However, given the fact that she has had a tunneled hemodialysis catheter raises the possibility that the changes are reflection of either a previous infection or clot in the catheter that embolized in to the lung. While I think this is unlikely at least blood cultures should be done. It also emphasizes the necessity to have her proceed as soon as possible to have her AV fistula created using a graft. RECOMMENDATIONS: To be absolutely complete, we should do blood cultures from the arterial and venous sides of her catheter, although I doubt that these will be positive given her normal white count and lack of fever. Would recommend that she be seen by Dr. Alonso to plan for an AV fistula. The patient does have a history of atrial fibrillation but has been in sinus rhythm with the amiodarone. Previously, I have discussed this with Dr. Wallis. Since she gets heparin intravenously at least twice a week and since she has generally been in a sinus rhythm we did not feel that anticoagulation at this time is unnecessary. However, if that opinion changes, she could be anticoagulated with either Coumadin or Eliquis. Eliquis is more frequently being used now in the end-stage renal disease population. No other immediate recommendations.
[2016-10-08 12:59] LABS: PARTIAL THROMBOPLASTIN RATIO 1.9
[2016-10-08] MEDS: ASPIRIN 81 MG ECTAB PO SCH (14:22)
[2016-10-08] MEDS: NEPHROCAPS PO SCH (14:22)
[2016-10-08] MEDS: GUAIFENESIN 600 MG TABCR PO SCH ×2 (14:22→21:02)
[2016-10-08] MEDS: FEXOFENADINE HCL 60 MG TAB PO SCH ×2 (14:22→21:00)
[2016-10-08] MEDS: BENZONATATE 100MG CAP PO PRN (14:23)
[2016-10-08] MEDS: DOXYCYCLINE HYCLATE 100 MG CAP PO SCH ×2 (14:26→23:09)
[2016-10-08] MEDS: CHOLECALCIFEROL 1000 INTER.UNIT TAB PO SCH (14:47)
--- NOTE | 2016-10-08 17:42 | Progress Note ---
Subjective Date of Service: Oct 08, 2016. Subjective Pt evaluation today including: conversation w/ patient, physical exam, chart review, lab review, review of studies, conversation w/ framing consultant, review of inpatient medication list feeling slowly better breathing improving no chest pain still weak and PRECIADO but better than she was d/w nephrology d/w pt extensively Problem List Medical Problems: (1) Bilateral pleural effusion Status: Acute (2) Dyspnea on exertion Status: Acute (3) Left sided chest pain Status: Acute (4) Precordial chest pain Status: Acute (5) Renal failure (ARF), acute on chronic Status: Acute (6) Renal insufficiency Status: Acute Review of Systems Constitutional: + see HPI, + weakness Respiratory: + dyspnea on exertion, No shortness of breath Cardiac: No chest pain ros otherwise negative except for as above Objective Vital Signs Date Time Temp Pulse Resp B/P Pulse Ox O2 Delivery O2 Flow Rate FiO2 10/08/16 16:23 36.6 63 18 122/77 95 Room Air 10/08/16 13:15 37.1 68 140/90 10/08/16 12:45 68 147/90 10/08/16 12:30 68 144/89 10/08/16 12:15 61 142/88 10/08/16 12:00 70 138/87 10/08/16 11:45 66 134/88 10/08/16 11:30 65 136/85 10/08/16 11:15 64 137/85 10/08/16 11:00 65 142/92 10/08/16 10:45 66 140/74 10/08/16 10:30 66 145/88 10/08/16 10:15 63 144/91 10/08/16 10:00 61 134/85 10/08/16 09:45 56 139/82 10/08/16 09:30 57 141/85 10/08/16 09:15 60 145/87 10/08/16 08:54 62 141/91 10/08/16 08:45 36.7 62 140/85 10/08/16 08:00 Room Air 10/08/16 07:39 36.8 61 16 145/85 96 Room Air 10/08/16 00:00 Room Air 10/07/16 23:47 36.7 64 18 147/87 95 Room Air 10/07/16 20:00 Room Air Physical Exam General Appearance: no apparent distress Eyes: EOMI ENT: hearing grossly normal Neck: trachea midline Respiratory/Chest: no respiratory distress, no accessory muscle use Extremities: normal range of motion Neurologic/Psychiatric: brass molder II-XII nml as tested, alert, normal mood/affect Skin: normal color, warm/dry Laboratory Results Last 24 Hours Test 10/07/16 19:10 10/08/16 03:07 10/08/16 07:33 10/08/16 12:23 Activated Partial Thromboplast Time 31.9 SECONDS 79.5 SECONDS 48.5 SECONDS Partial Thromboplastin Ratio 1.2 3.1 1.9 White Blood Count 7.21 K/uL Red Blood Count 3.58 M/uL Hemoglobin 10.6 g/dL Hematocrit 32.6 % Mean Corpuscular Volume 91.1 fL Mean Corpuscular Hemoglobin 29.6 pg Mean Corpuscular Hemoglobin Concent 32.5 g/dl RDW Standard Deviation 60.7 fL RDW Coefficient of Variation 18.8 % Platelet Count 384 K/uL Mean Platelet Volume 9.9 fL Nucleated RBC Absolute Count (auto) 0.14 K/uL Nucleated Red Blood Cells % 1.9 % Assessment and Plan 1. dyspnea, orthopnea - appearing multifactorial w effusion, acute on chronic systolic chf, ESRD, deconditioning, possible PE's -treat each component 2. acute/chronic systolic CHF - overall stable/improved. -appearing compensated now, continue HD management 3. ESRD on HD - appreciate nephrology consult. HD today, did well nephrology requests vascular eval for access issues 4. hypothyroidism - TSH 07/2016 was elevated and repeat TSH again elevated. Increased dose to 75mcg 3 days/week and 50mcg 4 days/week. Repeat TSH 6 weeks. 5. pleural effusions - consulted thoracic surgery. Left sided is quite small. Right side is larger than left, but no interventions for now 6. pulmonary HTN on last echo - need to asses for ambulatory O2 needs at d/c. 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 8. a. fib - in NSR on amiodarone. 9. DVT proph - anticoagulation 10. probable acute sinusitis - day #4 doxy 100 BID. cont zakia BID, mucinex BID, nasal steroid, saline nasal drops prn 11. ? PEs on CTA with negative venous dopplers of legs - I have reviewed this issue with on-call pulmonary, radiology, and nephrology. Plan - systemic IV heparin for now. d/w pt about options - dopplers negative which lowers probability, could pursue VQ but typically these aren't as good at peripheral PE's as CT, could repeat CT but pt hesitant to do so. is OK w empiric anticoagulation - if she opts for this would change to eliquis 5mg bid x 3 months, then Ddimer - if ddimer reassurign then likely downgrade to asa. (this is contingent on not needign further anticoagulation as it relates to her afib) 12. ? tricuspid valve vegetation - her blood cultures are negative and she has no symptoms of endocarditis. No evidence of septic emboli on CT chest. If the valve lesion is not endocarditis it could be valve thickening, etc. dr cruz spoke with her primary cheese blender, Dr. Wallis, re: her echo and the findings. To follow for now. 13. right-sided infiltrates on CT - likely atelectasis due to pleural effusion but bears watching carefully. has not worsened off abx. blood cultures sent today 14. hyponatremia - 2nd to CKD/ESRD - improved. 15. anemia 2nd to ESRD/CKD - H/H stable; management per nephrology Continued [facility] stay due to: other (?PEs, right sided pleural effusion) Discharge planning: home
[2016-10-08] MEDS: DOCUSATE SODIUM 100 MG CAP PO SCH (21:00)
[2016-10-09] VITALS: BP 126/78; PULSE 63; TEMP 36.8; O2SAT 94
[2016-10-09] MEDS: LEVOTHYROXINE 75 MCG TAB PO SCH (05:54)
[2016-10-09 07:17] VITALS: BP 137/87; PULSE 60; TEMP 36.9; O2SAT 96
[2016-10-09] MEDS: DOXYCYCLINE HYCLATE 100 MG CAP PO SCH ×2 (08:29→20:36)
[2016-10-09] MEDS: GUAIFENESIN 600 MG TABCR PO SCH ×2 (08:29→20:34)
[2016-10-09] MEDS: AMIODARONE 200 MG TAB PO SCH (08:29)
[2016-10-09] MEDS: TRIAMCINOLONE ACET NASAL SPRAY 10.8ML BTL NAE SCH (08:29)
[2016-10-09] MEDS: CHOLECALCIFEROL 1000 INTER.UNIT TAB PO SCH (08:30)
[2016-10-09] MEDS: ASPIRIN 81 MG ECTAB PO SCH (08:30)
[2016-10-09] MEDS: NEPHROCAPS PO SCH (08:30)
[2016-10-09] MEDS: BENZONATATE 100MG CAP PO PRN ×2 (08:31→20:35)
[2016-10-09] MEDS: FEXOFENADINE HCL 60 MG TAB PO SCH ×2 (08:32→20:35)
[2016-10-09] MEDS: CARVEDILOL 12.5 MG TAB PO SCH ×2 (08:32→20:33)
[2016-10-09] MEDS: CALCIUM CARBONATE 500 MG CHEWABLE PO SCH ×3 (08:33→18:55)
[2016-10-09 08:35] LABS: PARTIAL THROMBOPLASTIN RATIO 1.7
[2016-10-09] MEDS: LORAZEPAM 1 MG TAB PO PRN ×2 (08:52→20:32)
[2016-10-09] MEDS ORDERED: EPOETIN ALFA 10,000 UNITS/ML VIAL IV. ONE (10:00)
--- NOTE | 2016-10-09 10:43 | PROGRESS NOTE ---
DATE: 10/09/2016 SUBJECTIVE: Mrs. Roth says that she is feeling relatively well, but still somewhat dyspneic with exertion. Additionally, she has a cough which is minimally productive. She has had no hemoptysis. She does have some occasional chest tightness, but she denies that she is calling it pain. Her appetite remains fair. She tolerated her dialysis treatment yesterday. In the discussion with Dr. Rowan yesterday, we elected not to start her on an oral anticoagulant at that time. Apparently, she was seen earlier today by Dr. Manley. His note is not yet available, but he agrees that a diagnostic thoracentesis may be helpful and apparently that is going to be scheduled for early this afternoon. OBJECTIVE: GENERAL: On physical exam, at the current time, Mrs. Roth appears as a chronically ill woman who is in no particular degree of distress. She is alert and oriented in 3 spheres. VITAL SIGNS: She is afebrile (36.9), her blood pressure is 137/87, her pulse is 60 and regular, respiratory rate is 16 and her pulse ox 94-96% on room air. SKIN: Shows somewhat of a sallow complexion. She has a tunneled hemodialysis catheter in the right internal jugular vein, exiting beneath the distal right clavicle. She has scars from prior surgical procedures. There is no obvious rash or infiltrative skin disease. LYMPHATICS: Show no palpable adenopathy. HEAD: Normal. EYES: Grossly normal. The ocular fundi were not examined. EARS, NOSE, MOUTH AND THROAT: Relatively normal. Her oral mucous membranes are moist. NECK: Supple. She has minimal jugular venous distention at about 75 degrees. I hear no carotid bruit, although there is some murmur transmitted to the carotids from a murmur at the base of her heart. She has no thyromegaly. CHEST: Shows diminished breath sounds at the bases, more prominent on the left than on the right. She has a few inspiratory crackles at both bases, again more prominent on the left than on the right. CARDIAC: Shows regular rhythm. S1 and S2 were normal. She has a grade 3/6 systolic murmur at the base radiating toward the neck as well as along the left sternal border to the apex. The murmur is somewhat high-pitched. ABDOMEN: Nontender. There is no organomegaly or mass. EXTREMITIES: Show some mild muscle wasting of the limb-girdle muscles. She has no peripheral edema. NEUROLOGIC: Shows no asterixis or lateralizing neurologic changes. PERTINENT LABORATORY WORK: Today is limited to a PTT which is 43.6 with a PTTR of 1.7. ASSESSMENT: As before, Mrs. Roth has complex medical issues. She clearly has cardiomyopathy, significant aortic stenosis and probable coronary disease. She has end-stage renal disease and is on dialysis. Despite an increase in the frequency of her dialysis, all of her problems have not improved. She remained short of breath with cough and has bilateral pleural effusions. RECOMMENDATIONS: I agree with the necessity for tap. For now, we will hold off on oral anticoagulants. I agree with repeating her chest CT scan to see if the abnormal areas previously noted in the pulmonary arteries are again documented. Certainly, these may be artifactual. However, given the presence of a right IJ catheter for dialysis I am still concerned about the possibility of an associated infection or small emboli emanating from the catheter in association with her treatments. We will plan on scheduling her for hemodialysis here tomorrow again.
--- NOTE | 2016-10-09 11:45 | Surgery Consultation ---
Consultation Date of Service Oct 09, 2016. Chief Complaint ESRD, need AV access History of Present Illness The patient is a 81 year old female with multiple medical problems, known to Dr Alonso's service for prior failed L wrist AVF, seen in consultation today for new AV access for HD. Pt currently undergoing HD through permcath. Pt admitted with pleural effusions. Pt had been seen in office recently to discuss LUE AV graft insertion. She postponed scheduling the procedure d/t current admission. Nephrology recommending AV access for pt be performed soon so that permcath can be removed. Pt admits depression, fatigue, malaise, cough. Denies BOOGIE, fever, chills, chest pain, abd pain N/V, rest pain, claudication, other complaints. Vitals Vital Signs Past 12 Hours Date Time Temp Pulse Resp B/P Pulse Ox O2 Delivery O2 Flow Rate FiO2 10/09/16 07:17 36.9 60 16 137/87 96 Room Air 10/09/16 01:35 Room Air 10/09/16 00:00 36.8 63 16 126/78 94 Room Air Allergies Coded Allergies: Amoxicillin (Verified Allergy, Severe, UNKOWN, 10/03/16) Clavulanic Acid (Verified Allergy, Severe, UNKOWN, 10/03/16) Nortriptyline (Verified Allergy, Severe, UNKNOWN, 10/03/16) Aloe (Verified Allergy, Intermediate, rash, 10/03/16) Amitriptyline (Verified Allergy, Unknown, unknown, 10/03/16) Amlodipine (Verified Allergy, Unknown, UNKNOWN, 10/03/16) Atorvastatin (Verified Allergy, Unknown, 10/03/16) Azathioprine (Verified Allergy, Unknown, 10/03/16) Barbiturates (Verified Allergy, Unknown, TAKES DARVOCET AT HOME, 10/03/16) Beta Adrenergic Blockers (Verified Allergy, Unknown, -, 10/03/16) Butalbital (Verified Allergy, Unknown, TAKES DARVOCET AT HOME, 10/03/16) Cefaclor (Verified Allergy, Unknown, RECEIVED ANCEF PREOP IN OR (08/05/12) , 10/03/16) Cefuroxime (Unverified Allergy, Unknown, UNKNOWN, 10/03/16) Cephalosporins (Verified Allergy, Unknown, 10/03/16) Chlorpheniramine (Verified Allergy, Unknown, 10/03/16) Cholestyramine (Verified Allergy, Unknown, 10/03/16) Ciprofloxacin (Verified Allergy, Unknown, redness and swelling, 10/03/16) Clonidine (Verified Allergy, Unknown, unknown, 10/03/16) Codeine (Verified Allergy, Unknown, TAKES DARVOCET AT HOME, 10/03/16) Dextromethorphan (Verified Allergy, Unknown, TAKES DARVOCET AT HOME, ) Diltiazem (Verified Allergy, Unknown, 10/03/16) Escitalopram (Verified Allergy, Unknown, 10/03/16) Estrogens (Verified Allergy, Unknown, 10/03/16) Felodipine (Verified Allergy, Unknown, 10/03/16) Ferrous Sulfate (Verified Allergy, Unknown, UNKNOWN, 10/03/16) Hydralazine (Verified Allergy, Unknown, unknown, 10/03/16) Hydrochlorothiazide (Verified Allergy, Unknown, 10/03/16) Hydrocodone (Verified Allergy, Unknown, TAKES DARVOCET AT HOME, 10/03/16) Hydrocortisone (Verified Allergy, Unknown, unknown, 10/03/16) Hydromorphone (Verified Allergy, Unknown, unknown, 10/03/16) Ibuprofen (Verified Allergy, Unknown, TAKES EC ASA AT HOME, 10/03/16) Indapamide (Verified Allergy, Unknown, 10/03/16) Ipratropium (Verified Allergy, Unknown, UNKNOWN, 10/03/16) Isosorbide Nitrate (Verified Allergy, Unknown, UNKNOWN, 10/03/16) Ketoconazole (Verified Allergy, Unknown, unknown, 10/03/16) Lisinopril (Verified Allergy, Unknown, 10/03/16) Losartan (Verified Allergy, Unknown, 10/03/16) Mesalamine (Verified Allergy, Unknown, 10/03/16) Methyltestosterone (Verified Allergy, Unknown, 10/03/16) Metoprolol (Verified Allergy, Unknown, 10/03/16) NSAIDs (Verified Allergy, Unknown, though takes ecotrin at home, 10/03/16) Olsalazine (Verified Allergy, Unknown, 10/03/16) Phenylpropanolamine (Verified Allergy, Unknown, 10/03/16) Pilocarpine (Verified Allergy, Unknown, UNKNOWN, 10/03/16) Progestins (Verified Allergy, Unknown, 10/03/16) Propranolol (Verified Allergy, Unknown, UNKNOWN, 10/03/16) Propylene Glycol (Verified Allergy, Unknown, 10/03/16) Rabeprazole (Verified Allergy, Unknown, 10/03/16) Sertraline (Verified Allergy, Unknown, UNKNOWN, 10/03/16) Simvastatin (Verified Allergy, Unknown, 10/03/16) Sulfa Antibiotics (Verified Allergy, Unknown, UNKNOWN, 10/03/16) Sulfacetamide (Verified Allergy, Unknown, 10/03/16) Sulfur (Verified Allergy, Unknown, 10/03/16) Terazosin (Verified Allergy, Unknown, 10/03/16) Terfenadine (Verified Allergy, Unknown, 10/03/16) Torsemide (Unverified Allergy, Unknown, UNKNOWN, 10/03/16) Tramadol (Verified Allergy, Unknown, unknown, 10/03/16) Triamterene (Verified Allergy, Unknown, 10/03/16) Verapamil (Verified Allergy, Unknown, 10/03/16) Calcium Acetate (Verified Adverse Reaction, Mild, CONSTIPATION, 10/03/16) Uncoded Allergies: XANTHINE (Allergy, Unknown, TAKES DARVOCET AT HOME, 04/10/14) PT CLAIMS SHE CAN TOLERATE CAFFEINE Home Medications Scheduled Amiodarone Hcl (Cordarone), 200 MG PO QAM Aspirin (Aspirin 81), 81 MG PO QAM B-Complex W/ C & Folic Acid (Dameon Caps), 2 CAP PO QAM Calcium Acetate (Phoslo 667 Mg), 2 CAP PO TID AFTER MEALS Cholecalciferol (Vitamin D3), 1 CAP PO QAM Docusate Sodium (Colace), 1 CAP PO QPM Scheduled PRN Acetaminophen (Tylenol), 500 MG PO DIRECTED PRN for Pain Jldoecs-Lbfhexyguyfmc-Hgxbdmpb (Migraine Relief), 1 TAB PO UD PRN for Migraine Epoetin Jose R (Procrit), 40,000 UNITS INJ DIRECTED PRN for DIALYSIS Guaifenesin (Robitussin Mucus+Chest Co), 1 DOSE PO DIRECTED PRN for Cough Lorazepam (Ativan), 1 MG PO TID PRN for Anxiety/Agitation Problem List Medical Problems: (1) Acute on chronic kidney failure (2) Anemia (3) Anxious depression (4) Aortic stenosis, moderate (5) Bilateral pleural effusion (6) Cardiomyopathy (7) Chest pain (8) Congestive heart failure (9) Dysphagia (10) End stage renal disease (11) Hypertension (12) Lower extremity edema (13) Pleural effusion on left (14) Secondary hyperparathyroidism of renal origin (15) Squamous cell carcinoma (16) Tonsil cancer Surgical / Medical History Hx Cardiac Surgery: No Hx Abdominal Surgery: Yes Hx Cancer Surgery: No Hx Thoracic Surgery: No Hx Orthopedic: Yes Hx Urinary Tract Surgery: No HX Other Surgery: No Past Medical/Surgical History: CHF, Hypertension, Kidney Disease Family History Cancer Gallbladder disease Hypertension Social History Smoking Status: Never Smoker Hx Tobacco Use In Past Year?: No Hx Alcohol Use - Type & Amnt: No Hx Substance Use -Type & Amnt: No Review of Systems Constitutional: + malaise, No chills, No fever Skin: No change in color Eyes: No visual changes ENMT: No sore throat Respiratory: + PRECIADO, + cough, No hemoptysis, No orthopnea, No short of breath Cardiovascular: No chest pain, No chest pressure, No edema, No intermittent claudication, No palpitations, No syncope Gastrointestinal: No abdominal pain, No nausea, No vomiting Neurologic: + lethargy, No dizziness, No headache, No numbness, No tingling Psychiatric: + depression Physical Exam Constitutional: General Apperance: well-nourished, well-developed, too thin Level of Distress: NAD, chronically ill Psychiatric: Mental Status: active & alert, normal mood, depressed Orientation: oriented except where noted, to time, to place, to person Memory: recent memory normal, remote memory normal Head: normocephalic, atraumatic Eyes: EOM: EOMI ENMT: normal ENT inspection, hearing grossly normal Neck: supple, trachea midline Lungs: Respiratory effort: no dyspnea Auscultation: no rales/crackles, no rhonchi, decreased breath sounds Cardiovascular: Apical Impulse: not displaced Heart Auscultation: no rubs, no gallops, II/ MANDO, pertinent finding ( irregular) Peripheral Pulses: Pulses: full and equal, in all extremities except if noted Bruits: none appreciated Carotid Pulse: normal on the left, normal on the right Brachial Pulses: normal on the left, normal on the right Radial Pulse: normal on the left, normal on the right Femoral Pulse: normal on the left, normal on the right Posterior Tibialis Pulse: decreased on the left, decreased on the right Dorsalis Pedis Pulse: decreased on the left, decreased on the right Abdomen: Bowel Sounds: normal Inspection & Palpation: soft, non-distended, no tenderness, guarding & rebound Musculoskeletal: normal strength (5/5 throughout), normal tone Extremities: Upper Right: no cyanosis, no edema, no varicosities Upper Left: no cyanosis, no edema, no varicosities Lower Right: no cyanosis, no edema, no varicosities Lower Left: no cyanosis, no edema, no varicosities Neurologic: Cranial Nerves: grossly intact Sensation: grossly intact Assessment and Plan ASSESSMENT and PLAN: ESRD, need AV access Pt discussed with Dr Alonso. Will tentatively schedule pt for LUE prosthetic AV access on SATURDAY in OR, pending blood cx. Procedure, risks, benefits, and alternatives discussed with pt, she expresses understanding and agreement.
[2016-10-09 15:33] VITALS: BP 115/77; PULSE 56; TEMP 36.9; O2SAT 96
--- NOTE | 2016-10-09 15:45 | DIAGNOSTIC IMAGING REPORT ---
CHEST ONE VIEW PORTABLE CLINICAL HISTORY: Status post thoracentesis. COMPARISON STUDY: Chest CT October 06, 2016. FINDINGS: There is no pneumothorax following thoracentesis. The right pleural effusion has significantly decreased in size since prior exam. There is a small left pleural effusion. A right internal jugular dual lumen catheter is in place. Cardiomegaly is unchanged. There is pulmonary vascular congestion with suspected mild pulmonary edema. IMPRESSION: 1. No pneumothorax status post thoracentesis. 2. Significant decrease in size of the right pleural effusion. Small left pleural effusion. 2. Mild pulmonary edema. Electronically signed by: Jaime Li M.D. 10/09/2016 3:44 PM Dictated Date/Time: 10/09/2016 3:43 PM
[2016-10-09 16:01] LABS: PLEURAL FLUID TOTAL PROTEIN 2.7 g/dl
[2016-10-09 16:28] LABS: PLEURAL FLUID APPEARANCE CLEAR; PLEURAL FLUID COLOR STRAW; PLEURAL FLUID MONONUC RELAT 76.5 %; PLEURAL FLUID POLYNUC 23.5 %; PLEURAL FLUID SOURCE RIGHT LUNG; PLEURAL FLUID WBC (A) 200 /uL
--- NOTE | 2016-10-09 18:27 | Progress Note ---
Subjective Date of Service: Oct 09, 2016. Subjective Pt evaluation today including: conversation w/ patient, physical exam, chart review, lab review, conversation w/ life consultant, review of inpatient medication list feeling about the same, seen prior to thoracentesis - somewhat nervous but notes she's had it done before. no new sx. notes vascular planning on taking her to OR saturday has been trying to walk some no other acute complaints Problem List Medical Problems: (1) Bilateral pleural effusion Status: Acute (2) Dyspnea on exertion Status: Acute (3) Left sided chest pain Status: Acute (4) Precordial chest pain Status: Acute (5) Renal failure (ARF), acute on chronic Status: Acute (6) Renal insufficiency Status: Acute Review of Systems ros otherwise negative except for as above Objective Vital Signs Date Time Temp Pulse Resp B/P Pulse Ox O2 Delivery O2 Flow Rate FiO2 10/09/16 16:00 Room Air 10/09/16 15:33 36.9 56 15 115/77 96 Room Air 10/09/16 08:00 Room Air 10/09/16 07:17 36.9 60 16 137/87 96 Room Air 10/09/16 01:35 Room Air 10/09/16 00:00 36.8 63 16 126/78 94 Room Air 10/08/16 22:00 Room Air 10/08/16 20:58 64 18 142/82 Physical Exam General Appearance: no apparent distress Eyes: EOMI ENT: hearing grossly normal Neck: trachea midline Respiratory/Chest: no respiratory distress, no accessory muscle use Neurologic/Psychiatric: flexible nanny II-XII nml as tested, alert, normal mood/affect Laboratory Results Last 24 Hours Test 10/09/16 07:45 10/09/16 15:02 10/09/16 15:25 Activated Partial Thromboplast Time 43.6 SECONDS Partial Thromboplastin Ratio 1.7 Pleural Fluid Source RIGHT LUNG Pleural Fluid Color STRAW Pleural Fluid Appearance CLEAR Pleural Fluid WBC 200 /uL Pleural Fluid RBC < 3000 /uL Pleural Fluid Polynuclear WBCs % 23.5 % Pleural Fluid Mononuclear WBCs % 76.5 % Pleural Fluid Total Protein 2.7 g/dl Pleural Fluid LDH 67 IU Pleural Fluid Glucose 127 mg/dl Pleural Fluid Amylase 16 U/L Lactate Dehydrogenase 163 U/L Assessment and Plan 1. dyspnea, orthopnea - appearing multifactorial w effusion, acute on chronic systolic chf, ESRD, deconditioning, possible PE's -treat each component 2. acute/chronic systolic CHF - overall stable/improved. -appearing compensated now, continue HD management 3. ESRD on HD - appreciate nephrology consult. ongoing HD nephrology requests vascular eval for access issues 4. hypothyroidism - TSH 07/2016 was elevated and repeat TSH again elevated. Increased dose to 75mcg 3 days/week and 50mcg 4 days/week. Repeat TSH 6 weeks. 5. pleural effusions - consulted thoracic surgery. Left sided is quite small. Right side is larger than left, thoracentesis later today (done by the time of this writing) 6. pulmonary HTN on last echo - need to asses for ambulatory O2 needs at d/c. 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 8. a. fib - in NSR on amiodarone. 9. DVT proph - anticoagulation 10. probable acute sinusitis - day #5 doxy 100 BID. cont zakia BID, mucinex BID, nasal steroid, saline nasal drops prn 11. ? PEs on CTA with negative venous dopplers of legs - I have reviewed this issue with on-call pulmonary, radiology, and nephrology. Plan - systemic IV heparin for now. d/w pt yesterday about options - dopplers negative which lowers probability, could pursue VQ but typically these aren't as good at peripheral PE's as CT, could repeat CT but pt hesitant to do so. is OK w empiric anticoagulation - if she opts for this would change to eliquis 5mg bid x 3 months, then Ddimer - if ddimer reassurign then likely downgrade to asa. (this is contingent on not needing further anticoagulation as it relates to her afib) for now heparin ( except for holding for procedures) 12. ? tricuspid valve vegetation - her blood cultures are negative and she has no symptoms of endocarditis. No evidence of septic emboli on CT chest. If the valve lesion is not endocarditis it could be valve thickening, etc. dr cruz spoke with her primary biological sciences professor, Dr. Wallis, re: her echo and the findings. To follow for now. 13. right-sided infiltrates on CT - likely atelectasis due to pleural effusion but bears watching carefully. has not worsened off abx. blood cultures still negative to date 14. hyponatremia - 2nd to CKD/ESRD - improved. 15. anemia 2nd to ESRD/CKD - H/H stable; management per nephrology Continued [facility] stay due to: other (?PEs, right sided pleural effusion) Discharge planning: home
--- NOTE | 2016-10-09 19:16 | SURGERY PROGRESS NOTE ---
DATE: 10/09/2016 SUBJECTIVE: Ms. Roth was seen today with Mr. Cristóbal Elliott. Mr. Elliott saw the patient over the weekend. She has a very large right pleural effusion. We had performed a thoracentesis on the left side several months ago and she did well with it. She has history of end-stage renal disease and on dialysis. Unfortunately, she is pretty short of breath. She states she cannot do much because she has such dyspnea. She is on room air now with saturations in the low 90s. I had a long talk with her and explained that I felt that a thoracentesis would be helpful to her on the right. After a long discussion, she has agreed to this. We will of course send it off for proper labs.
[2016-10-09] MEDS: ACETAMINOPHEN 325 MG TAB PO PRN (20:32)
[2016-10-09] MEDS: DOCUSATE SODIUM 100 MG CAP PO SCH (20:34)
[2016-10-09 21:34] LABS: PARTIAL THROMBOPLASTIN RATIO 1.6
--- NOTE | 2016-10-09 22:54 | OPERATIVE REPORT ---
DATE OF OPERATION: 10/09/2016 PROCEDURE: Right thoracentesis under ultrasound guidance. SURGEON: Dr. Manley. RENAL MEDICINE SPECIALIST: DAVID Olvera. ANESTHESIA: Local. SPECIFICS OF PROCEDURE: At the patient's bedside, an ultrasound was used to guide our window. This was at about the eighth interspace in the posterior axillary line. It was a bit more lateral than we usually tap. The patient was prepped and draped in the usual sterile fashion. After appropriate timeout had been called, a skin wheal was raised with a 25-gauge needle and 1% Xylocaine. A larger bore needle was used to anesthetize the deeper subcutaneous tissues and a guidewire was inserted through the needle and needle removed. Introducer sheath was slid over the guidewire and the cannula and guidewire were removed. A triple lumen catheter was then slid over the guidewire and the guidewire removed. A total of about 1400 mL of serous fluid was drained. She tolerated it very well. The catheter was removed and an antimicrobial dressing placed. Chest x-ray showed almost total resolution of the pleural fluid. She tolerated it well. I attest to the content of the Intraoperative Record and any orders documented therein. Any exceptio ns are noted below.
[2016-10-09 23:58] VITALS: BP 107/69; PULSE 58; TEMP 36.8; O2SAT 97
[2016-10-10] VITALS (19 sets, daily range): BP systolic 18–125; BP diastolic 44–80; PULSE 51–65; TEMP 36.5–37; O2SAT 95–96
[2016-10-10] MEDS ORDERED: KETOROLAC TROMETHAMINE 15 MG/ML VIAL IV. PRN (01:15)
[2016-10-10] MEDS ORDERED: KETOROLAC TROMETHAMINE 15 MG/ML VIAL IV. STA (01:16)
[2016-10-10] MEDS ORDERED: HEPARIN IV BOLUS 3,000 UNIT in SYRINGE 0 ML IV STA (01:26)
[2016-10-10] MEDS: HEPARIN 25,000 UNIT/500ML D5W 500 ML IV PRN ×2 (01:40→07:49)
[2016-10-10] MEDS: LEVOTHYROXINE 50 MCG TAB PO SCH (06:01)
[2016-10-10 07:37] LABS: HEMATOCRIT 32.3 % (37-47); MEAN CORPUSCULAR HEMOGLOBIN 30.1 pg (25-34); MEAN CORPUSCULAR HGB CONC 33.4 g/dl (32-36); MEAN PLATELET VOLUME 9.5 fL (7.4-10.4); PLATELET COUNT 312 K/uL (130-400); RED BLOOD COUNT 3.59 M/uL (4.2-5.4); WHITE BLOOD COUNT 8.87 K/uL (4.8-10.8)
[2016-10-10] MEDS: FEXOFENADINE HCL 60 MG TAB PO SCH ×2 (07:50→20:24)
[2016-10-10] MEDS: TRIAMCINOLONE ACET NASAL SPRAY 10.8ML BTL NAE SCH (07:50)
[2016-10-10] MEDS: DOXYCYCLINE HYCLATE 100 MG CAP PO SCH ×2 (07:50→20:25)
[2016-10-10] MEDS: ASPIRIN 81 MG ECTAB PO SCH (07:50)
[2016-10-10] MEDS: NEPHROCAPS PO SCH (07:50)
[2016-10-10] MEDS: GUAIFENESIN 600 MG TABCR PO SCH ×2 (07:51→20:30)
[2016-10-10] MEDS: CHOLECALCIFEROL 1000 INTER.UNIT TAB PO SCH ×2 (07:51→07:57)
[2016-10-10] MEDS: BENZONATATE 100MG CAP PO PRN (07:51)
[2016-10-10] MEDS: CALCIUM CARBONATE 500 MG CHEWABLE PO SCH ×3 (07:53→17:44)
--- NOTE | 2016-10-10 07:57 | DIAGNOSTIC IMAGING REPORT ---
CHEST ONE VIEW PORTABLE HISTORY: pleural effusion COMPARISON: Chest 10/09/2016. FINDINGS: No pneumothorax. Right jugular catheter terminates in the SVC. The heart remains mildly enlarged. Trace right and small left pleural effusions persist. There is a new patchy airspace opacity within the right lower lobe. Questionable pleural reflection within the right upper lung zone is likely due to a skin fold. There appear to be lung markings beyond this area. IMPRESSION: 1. A new right lower lobe airspace opacity. This likely represents a pneumonia, possibly secondary to aspiration. 2. No change in the trace right and small left pleural effusions. Electronically signed by: eJfe Vallejo M.D. 10/10/2016 7:56 AM Dictated Date/Time: 10/10/2016 7:54 AM
[2016-10-10 08:00] LABS: PARTIAL THROMBOPLASTIN RATIO 3.2
[2016-10-10] MEDS ORDERED: SODIUM CHLORIDE 0.9% 1000ML 1,000 ML IV PRN (08:00)
[2016-10-10] MEDS ORDERED: HEPARIN SOD (PORCINE) 1000 UNIT/ML 10 ML VIAL IV SCH (08:00)
[2016-10-10] MEDS ORDERED: EPOETIN ALFA INJ 5,000 UNITS in SYRINGE 0 ML IV. SCH (08:00)
[2016-10-10 10:10] LABS: BUN/CREATININE RATIO 4.6 (10-20); CALCIUM 8.8 mg/dl (8.5-10.1); CREATININE 4.8 mg/dl (0.60-1.20); POTASSIUM 4.5 mmol/L (3.5-5.1)
--- NOTE | 2016-10-10 10:45 | SURGERY PROGRESS NOTE ---
DATE: 10/10/2016 DATE: 10/10/2016. Ms. Roth was seen while on dialysis. Her breathing is a bit better after draining off almost 1400 mL of fluid. Her x-ray looks quite good. Saturations are great on room air. Her problem is her hemodialysis access and AV graft is planned by Dr. Alonso. We will continue to follow from a distance. This was a transudate and would not need further workup.
--- NOTE | 2016-10-10 11:05 | NEPHROLOGY PROGRESS NOTE ---
DATE: 10/10/2016 DATE: 10/10/2016. SUBJECTIVE: Ms. Roth says that she is feeling reasonably good this morning. However, last evening see had some significant right chest discomfort after she had her thoracentesis done. About 1.4 liters of fluid was removed with the thoracentesis. The fluid appears to be benign, although pathology is pending. The chest pain that she had was pleuritic. She also had a cough which she did not associate with the pain itself. Her cough was nonproductive and similar to that that she has experienced of late. Otherwise, she says that she is doing reasonably well. She denies being short of breath at rest. She says her appetite, if anything, is significantly better than it had been. She has no abdominal pain and no nausea. She is scheduled for an AV fistula creation using an AV graft on Saturday. OBJECTIVE: GENERAL: On physical exam when seen by me, she appeared to be perfectly comfortable. I saw her during her dialysis treatment. She was afebrile (36.8). VITAL SIGNS: Her blood pressure was 115/55, pulse 54 and regular, respiratory rate was 18 and her pulse ox was 95% on room air. SKIN: Shows normal skin turgor. She has a hemodialysis catheter in the right IJ. There is no tenderness along the subcutaneous tunnel or discharge from the exit site. She has no obvious rash or infiltrative skin disease. Skin turgor is normal. LYMPHATICS: Show no palpable lymphadenopathy. HEAD: Normal. EYES: Grossly normal. The ocular fundi were not examined. EARS, NOSE, MOUTH AND THROAT: All unremarkable. Her oral mucous membranes are moist. NECK: Supple. She has minimal jugular venous distention at about 75 degrees. I hear no carotid bruit and there is no thyromegaly. She has the right IJ catheter as noted. CHEST: Shows diminished breath sounds at the left base and to a lesser extent at the right base. She has a pleural friction rub at the right base. Breath sounds are otherwise unremarkable. I hear no wheezes, rales or rhonchi. CARDIAC EXAMINATION: Shows a regular rhythm. S1 and S2 are normal. She has a grade 3/6 systolic murmur at the base radiating toward the neck as well as along the left sternal border and at the apex. ABDOMEN: Nontender. There is no organomegaly or mass. Bowel sounds are present. She has no abdominal bruits. EXTREMITIES: Show no cyanosis, clubbing or peripheral edema. NEUROLOGIC EXAMINATION: Shows no lateralizing changes. She has no asterixis. PERTINENT LABORATORY WORK: From today shows a white count of 8,870. A differential was not done. Her hemoglobin is 10.8. Her hematocrit 32.3, platelet count is 312,000. Her PTT is 83.2 with a PTTR of 3.2. Clinical chemistries show a sodium of 128 mmol/L, potassium of 4.5 mmol/L, chloride 94 mmol/L, and CO2 content 24 mmol/L. Her BUN is 22, creatinine 4.80. A random blood sugar is 104. Her serum calcium is 8.8. Her pleural fluid shows straw-colored fluid. She had 200 white cells present, most of which were mononuclear cells. Her total protein was 2.7. Her LDH 67 and her pleural fluid sugar is 127 and her amylase 16. Pertinent other laboratory work that has returned include a serum immunofixation which did not reveal any abnormal IgM, IgG, IgA kappa or lambda bands that would indicate a monoclonal gammopathy. ASSESSMENT: Mrs. Roth appears to be doing reasonably well. Certainly the 1.4 liters removed from her right pleural cavity should give her some improvement in her shortness of breath. She has a rub at the right base, probably as a result of irritation from her thoracentesis. RECOMMENDATIONS: No change in therapy hemodialysis today. If she continues to do well, we can consider discharge after the creation of her AV fistula on Saturday. Her next planned hemodialysis will be 10/12/2016.
[2016-10-10] MEDS: CARVEDILOL 12.5 MG TAB PO SCH ×2 (12:43→20:26)
[2016-10-10] MEDS: AMIODARONE 200 MG TAB PO SCH (12:45)
[2016-10-10 15:34] LABS: PARTIAL THROMBOPLASTIN RATIO 1.8
[2016-10-10] MEDS: ACETAMINOPHEN 325 MG TAB PO PRN (18:02)
--- NOTE | 2016-10-10 18:57 | Progress Note ---
Subjective Date of Service: Oct 10, 2016. Subjective Pt evaluation today including: conversation w/ patient, physical exam, chart review, lab review, review of inpatient medication list feeling about the same doesn't really see much improvement in breathing but also not that bad right now either walking halls some relates difficulties with home situation although improving some Problem List Medical Problems: (1) Bilateral pleural effusion Status: Acute (2) Dyspnea on exertion Status: Acute (3) Left sided chest pain Status: Acute (4) Precordial chest pain Status: Acute (5) Renal failure (ARF), acute on chronic Status: Acute (6) Renal insufficiency Status: Acute Review of Systems ros otherwise negative except for as above Objective Vital Signs Date Time Temp Pulse Resp B/P Pulse Ox O2 Delivery O2 Flow Rate FiO2 10/10/16 16:30 Room Air 10/10/16 15:46 37.0 63 16 106/62 95 Room Air 10/10/16 12:17 37.0 53 113/58 10/10/16 12:00 53 116/64 10/10/16 11:45 51 110/58 10/10/16 11:39 Room Air 10/10/16 11:30 54 113/53 10/10/16 11:15 51 118/61 10/10/16 11:00 53 114/61 10/10/16 10:45 53 121/51 10/10/16 10:30 55 110/57 10/10/16 10:15 54 115/55 10/10/16 10:00 55 114/64 10/10/16 09:45 54 112/55 10/10/16 09:30 55 116/62 10/10/16 09:15 58 108/58 10/10/16 09:00 56 120/44 10/10/16 08:40 56 112/64 10/10/16 08:30 36.8 57 123/69 10/10/16 07:30 36.6 58 18 125/80 95 Room Air 10/10/16 00:00 Room Air 10/09/16 23:58 36.8 58 16 107/69 97 Room Air 10/09/16 20:00 Room Air Physical Exam General Appearance: no apparent distress Eyes: EOMI ENT: hearing grossly normal Neck: trachea midline Respiratory/Chest: no respiratory distress, no accessory muscle use Neurologic/Psychiatric: investigation specialist II-XII nml as tested, alert Skin: normal color, warm/dry Laboratory Results Last 24 Hours Test 10/09/16 21:10 10/10/16 07:25 10/10/16 15:11 Activated Partial Thromboplast Time 41.8 SECONDS 83.2 SECONDS 47.3 SECONDS Partial Thromboplastin Ratio 1.6 3.2 1.8 White Blood Count 8.87 K/uL Red Blood Count 3.59 M/uL Hemoglobin 10.8 g/dL Hematocrit 32.3 % Mean Corpuscular Volume 90.0 fL Mean Corpuscular Hemoglobin 30.1 pg Mean Corpuscular Hemoglobin Concent 33.4 g/dl RDW Standard Deviation 62.0 fL RDW Coefficient of Variation 18.9 % Platelet Count 312 K/uL Mean Platelet Volume 9.5 fL Nucleated RBC Absolute Count (auto) 0.08 K/uL Nucleated Red Blood Cells % 0.9 % Sodium Level 128 mmol/L Potassium Level 4.5 mmol/L Chloride Level 94 mmol/L Carbon Dioxide Level 24 mmol/L Anion Gap 10.0 mmol/L Blood Urea Nitrogen 22 mg/dl Creatinine 4.80 mg/dl Est Creatinine Clear Calc Drug Dose 9.6 ml/min Estimated GFR () 9.3 Estimated GFR (Non- 8.0 BUN/Creatinine Ratio 4.6 Random Glucose 104 mg/dl Calcium Level 8.8 mg/dl Assessment and Plan 1. dyspnea, orthopnea - appearing multifactorial w effusion, acute on chronic systolic chf, ESRD, deconditioning, possible PE's -treating each component - seems to be fairly stable overall. 1.5L off w thoracentesis appearing likely CHF related. -continue ambulation and icreasing activity 2. acute/chronic systolic CHF - overall stable/improved. -appearing compensated now, continue HD management 3. ESRD on HD - appreciate nephrology consult. ongoing HD for better vascular access to be obtained this hospital stay 4. hypothyroidism - TSH 07/2016 was elevated and repeat TSH again elevated. Increased dose to 75mcg 3 days/week and 50mcg 4 days/week. Repeat TSH 6 weeks. 5. pleural effusions -now stable s/p thoracentesis 6. pulmonary HTN on last echo - need to asses for ambulatory O2 needs at d/c. 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 8. a. fib - in NSR on amiodarone. continue to follow 9. DVT proph - anticoagulation -- question of intermediate anticoagulation as below 10. probable acute sinusitis - day #5 doxy 100 BID. cont zakia BID, mucinex BID, nasal steroid, saline nasal drops prn 11. ? PEs on CTA with negative venous dopplers of legs - see prior discussions - also concern on ??clot on tricuspid valve. continue anticoagulation, vascular surg input, may need to repeat CT chest and/or echo 12. ? tricuspid valve vegetation - her blood cultures are negative and she has no symptoms of endocarditis. No evidence of septic emboli on CT chest. If the valve lesion is not endocarditis it could be valve thickening, etc. dr cruz spoke with her primary tree and shrub technician, Dr. Wallis, re: her echo and the findings. -see above - with question of ??ongoing anticoagulation - will await further thoughts from vascular but also very low threshold to repeat CTA and echo 13. right-sided infiltrates on CT - likely atelectasis due to pleural effusion but bears watching carefully. has not worsened off abx. blood cultures still negative to date 14. hyponatremia - 2nd to CKD/ESRD - improved. 15. anemia 2nd to ESRD/CKD - H/H stable; management per nephrology Continued [facility] stay due to: other (?PEs, right sided pleural effusion) Discharge planning: home
[2016-10-10] MEDS: LORAZEPAM 1 MG TAB PO PRN (20:29)
[2016-10-10] MEDS: DOCUSATE SODIUM 100 MG CAP PO SCH (20:30)
[2016-10-11 05:41] LABS: PARTIAL THROMBOPLASTIN RATIO 1.8
[2016-10-11] MEDS: LEVOTHYROXINE 75 MCG TAB PO SCH (06:21)
[2016-10-11 07:01] VITALS: BP 121/67; PULSE 56; TEMP 36.8; O2SAT 97
[2016-10-11] MEDS: AMIODARONE 200 MG TAB PO SCH (08:35)
[2016-10-11] MEDS: GUAIFENESIN 600 MG TABCR PO SCH ×2 (08:35→20:40)
--- NOTE | 2016-10-11 08:35 | Surgery Progress Note ---
Subjective Date of Service: Oct 11, 2016. Pt. notes her breathing continues to improve. Objective Vitals Date Time Temp Pulse Resp B/P Pulse Ox O2 Delivery O2 Flow Rate FiO2 10/11/16 08:03 Room Air 10/11/16 07:01 36.8 56 20 121/67 97 Room Air 10/11/16 00:00 Room Air 10/10/16 23:55 36.5 65 20 116/69 96 Room Air 10/10/16 16:30 Room Air 10/10/16 15:46 37.0 63 16 106/62 95 Room Air 10/10/16 12:17 37.0 53 113/58 10/10/16 12:00 53 116/64 10/10/16 11:45 51 110/58 10/10/16 11:39 Room Air 10/10/16 11:30 54 113/53 10/10/16 11:15 51 118/61 10/10/16 11:00 53 114/61 10/10/16 10:45 53 121/51 10/10/16 10:30 55 110/57 10/10/16 10:15 54 115/55 10/10/16 10:00 55 114/64 10/10/16 09:45 54 112/55 10/10/16 09:30 55 116/62 10/10/16 09:15 58 108/58 10/10/16 09:00 56 120/44 10/10/16 08:40 56 112/64 Physical Exam General: + well developed, + well nourished, No distress CV: + RRR Pulmonary: + pertinent finding (decrease at left base) Assessment & Plan 81 year old female with bilateral pleural effusions -decubitus CXR performed (10/05/16) which shows that effusions are small -plans noted for pt. to be transitioned to HD 3 x per week: -this may help improve pleural effusions -CT scan results noted (10/06/16); small left effusion noted; effusion on right appears moderate; concern noted for possible PE: -thoracentesis performed (10/09/16): -cultures are (-) -cytology (-) for malignancy
[2016-10-11] MEDS: CHOLECALCIFEROL 1000 INTER.UNIT TAB PO SCH (08:36)
[2016-10-11] MEDS: DOXYCYCLINE HYCLATE 100 MG CAP PO SCH ×2 (08:36→20:39)
[2016-10-11] MEDS: NEPHROCAPS PO SCH (08:37)
[2016-10-11] MEDS: ASPIRIN 81 MG ECTAB PO SCH (08:37)
[2016-10-11] MEDS: CARVEDILOL 12.5 MG TAB PO SCH ×2 (08:38→20:39)
[2016-10-11] MEDS: FEXOFENADINE HCL 60 MG TAB PO SCH (08:39)
[2016-10-11] MEDS: CALCIUM CARBONATE 500 MG CHEWABLE PO SCH ×3 (08:39→16:43)
[2016-10-11] MEDS: TRIAMCINOLONE ACET NASAL SPRAY 10.8ML BTL NAE SCH (08:39)
[2016-10-11] MEDS: HEPARIN 25,000 UNIT/500ML D5W 500 ML IV PRN (10:23)
[2016-10-11] MEDS ORDERED: EPOETIN ALFA 10,000 UNITS/ML VIAL IV. ONE (10:30)
--- NOTE | 2016-10-11 10:37 | NEPHROLOGY PROGRESS NOTE ---
DATE: 10/11/2016 SUBJECTIVE: Ms. Roth says that she is feeling relatively well. She is walking on the floor. She says that she does feel somewhat short of breath after she does one or two trips____ around the floor. She says her appetite is good. She denies any nausea or vomiting. She has no further problems with chest pain. She seems to be sleeping fairly well. She is scheduled for both dialysis as well as the creation of an AV fistula by Dr. Alonso tomorrow. OBJECTIVE: GENERAL: On physical examination, Ms. Roth appears as a chronically ill woman of about her stated age of 81. VITAL SIGNS: Her temperature is 36.8, her blood pressure 121/67, her pulse 56 and regular, respiratory rate 20 and her pulse ox 95%-97% on room air. SKIN: Shows somewhat of a sallow complexion. She has no obvious rash or infiltrative skin disease. She has a tunneled hemodialysis catheter in the right IJ, exiting beneath the distal right clavicle. She has no tenderness along the subcutaneous tunnel or discharge from the exit site. LYMPHATICS: Show no palpable lymphadenopathy. HEAD: Normal. EYES: Grossly normal. The ocular fundi were not examined. EARS, NOSE, MOUTH AND THROAT: Unremarkable. Her oral mucous membranes are moist. NECK: Supple. Sitting in a nearly 90 degrees, she still has some jugular venous distention to the angle of the jaw. She has no carotid bruit and there is no thyromegaly. She does have the right IJ catheter. CHEST: Shows diminished breath sounds at both bases with a few inspiratory crackles at the right base. I hear no pleural friction rubs. The remainder of her lung exam is unremarkable. CARDIAC: Shows a regular rhythm with a relative bradycardia. S1 and S2 are normal. She has a grade 3/6 systolic murmur at the base radiating toward the neck as well as along the left sternal border and apex. ABDOMEN: Nontender. She has no organomegaly or mass. Bowel sounds are present. There are no abdominal bruits. EXTREMITIES: Show no cyanosis, clubbing or peripheral edema. NEUROLOGIC: Shows no asterixis. She has no lateralizing changes. PERTINENT LABORATORY WORK: From today shows a [place] count of 8870, her hemoglobin is 10.8, her hematocrit is 32.3, and her platelet count is 31.2. Her prothrombin time is 46.9 with a PTTR of 1.8. ASSESSMENT: Ms. Roth appears to be reasonably stable. PLAN: Continue with her current management. Hemodialysis tomorrow as well as the creation of an AV fistula. If there are no problems with the creation of an AV fistula, she can be discharged on Saturday. She should be discharged on her current medications. Followup hemodialysis is scheduled as an outpatient starting on October 15. KARTHIKEYAN
--- NOTE | 2016-10-11 13:31 | Anesthesiology Progress Note ---
Anesthesia Progress Note Date of Service Oct 11, 2016. Progress Notes Ms. Roth is scheduled for an AV fistula on 10/12/[address] Alonso. She has multiple allergies to medications (see list) and has had several surgeries without anesthetic difficulty. PMH significant for b/l pleural effusionss/o thoracentesis on 10/09/16, SOB with activity (improving after thoracentesis), moderate , pulmonary HTN, A fib (currently NSR on amiodarone), CHF (EF 20-25%) , PE, dysphagia, dysnpea/orthopnea, ESRD with dialysis on M and F (to be dialyzed on 10/12/16 in AM), hx/o tonsillar CA (2013, s/p chemo and radiation with current area of inflamed buccal tissue to be f/u as an outpatient). CXR from 10/10/16 shows right lower lobe PNA with trace right and small L pleural effusions now. Echo from this admission showed EF 20-25% with anterior wall akinesis with severe hypokinesis of remaining segments, moderate and a small vegetation on tricuspid valve or mass. H/H 10.8 and 32.3. Patient hyponatremic 128 with K of 4.5. Airway exam showed slight decreased extension but thin neck with MP 2. Patient has had previous AV fistulas before without issue and is agreeable to local with sedation (GA backup). All questions were answered and consent was obtained. Patient deemed appropriate for surgery tomorrow.
[2016-10-11 14:58] VITALS: BP 111/73; PULSE 77; TEMP 36.6; O2SAT 93
--- NOTE | 2016-10-11 16:21 | ECHOCARDIOGRAM REPORT ---
*NOTICE TO RECEIVING [employer] This information is strictly Confidential and protected under [place] law. [place] law prohibits you from making any further disclosure of this information unless further disclosure is expressly permitted by the written consent of the person to whom it pertains or is authorized by law. A general authorization for the release of medical or other information is not sufficient for this purpose. Hospital accepts no responsibility if the information is made available to any other person, INCLUDING THE PATIENT. Interpretation Summary * Name: SHANNON ABAD Study Date: 10/11/2016 02:48 PM BP: 121/67 mmHg * Patient Location: C.2T\S\E215\S\1 HR: 56 * : 1935 (M/d/yyyy) Gender: Female Height: 68 in * Age: 81 yrs Ethnicity: CA Weight: 137 lb * Ordering Physician: Duglas Rowan * Performed By: Nyla Dinero * * Reason For Study: FOLLOW UP- TRICUSPID VALVE MASS * BSA: 1.7 m2 * -- Conclusions -- * 1. Mildly dilated left ventricle with severely reduced systolic function. EF 20-25%. Severe global hypokinesis with akinesis of the mid to distal inferior wall. Mild concentric left ventricular hypertrophy. * 2. Mildly dilated right ventricle with visually moderately reduced systolic function. * 3. Mild biatrial dilation. * 4. No definite tricuspid valve mass. * 5. Moderate tricuspid regurgitation. * 6. Aortic valve appears visually stenotic, however spectral Doppler studies were not performed across the aortic valve for this limited 2D echo with limited color. * 7. Pleural effusion. * 8. Limited 2D echo with limited color Doppler. * 9. Compared to prior study on 10/05/2016, tricuspid valve is currently better visualized. Procedure Details * Left Ventricle Mildly dilated left ventricle with severely reduced systolic function. EF 20-25%. Severe global hypokinesis with akinesis of the mid to distal inferior wall. Mild concentric left ventricular hypertrophy. * Right Ventricle The right ventricle is mildly dilated. Moderately reduced right ventricular systolic function. * Atria The left atrium is mildly dilated. The right atrium is mildly dilated. * Mitral Valve There is moderate mitral annular calcification. Mitral valve leaflets appear structurally normal. * Tricuspid Valve Tricuspid valve leaflets appear normal. There is moderate tricuspid regurgitation. * Aortic Valve Aortic valve appears calcified and visually stenotic however Doppler studies were not performed on this limited echo. * Pulmonic Valve The pulmonic valve is not well visualized. * Great Vessels The aortic root is normal size. * Pericardium/Pleural There is no pericardial effusion. Pleural effusion. * Great Vessels Severely dilated IVC with reduced inspiratory collapse. * * MMode 2D Measurements and Calculations * IVSd 1.2 cm * * LVIDd 5.7 cm * LVIDs 4.8 cm * LVPWd 1.2 cm * * IVS/LVPW 0.97 * FS 15.4 % * EDV(Teich) 157.0 ml * ESV(Teich) 106.6 ml * EF(Teich) 32.1 % * * EDV(cubed) 180.6 ml * ESV(cubed) 109.4 ml * EF(cubed) 39.4 % * * LV mass(C)d 294.0 grams * LV mass(C)dI 168.9 grams/m\S\2 * * SV(Teich) 50.4 ml * SI(Teich) 29.0 ml/m\S\2 * SV(cubed) 71.2 ml * SI(cubed) 40.9 ml/m\S\2 * * Ao root diam 3.5 cm * Ao root area 9.6 cm\S\2 * * * * Doppler Measurements and Calculations * RAP systole 15.0 mmHg * * * * *
[2016-10-11] MEDS: LORAZEPAM 1 MG TAB PO PRN ×2 (16:39→21:42)
--- NOTE | 2016-10-11 18:13 | Progress Note ---
Subjective Date of Service: Oct 11, 2016. Subjective Pt evaluation today including: conversation w/ patient, physical exam, chart review, lab review, review of studies, review of inpatient medication list feeling about the same. no new sob. anxious about tomorrow. notes that she' ll definitely be too wiped out to go home then - especially since she lives alone. is happy that plans are starting to come together to bring this hospital stay to an end though. no other complaitns, HPI and ROS otherwise negative except for as above Problem List Medical Problems: (1) Bilateral pleural effusion Status: Acute (2) Dyspnea on exertion Status: Acute (3) Left sided chest pain Status: Acute (4) Precordial chest pain Status: Acute (5) Renal failure (ARF), acute on chronic Status: Acute (6) Renal insufficiency Status: Acute Review of Systems ros otherwise negative except for as above Objective Vital Signs Date Time Temp Pulse Resp B/P Pulse Ox O2 Delivery O2 Flow Rate FiO2 10/11/16 14:58 36.6 77 20 111/73 93 Room Air 10/11/16 08:03 Room Air 10/11/16 07:01 36.8 56 20 121/67 97 Room Air 10/11/16 00:00 Room Air 10/10/16 23:55 36.5 65 20 116/69 96 Room Air Physical Exam General Appearance: no apparent distress Eyes: EOMI ENT: hearing grossly normal Neck: trachea midline Respiratory/Chest: no respiratory distress, no accessory muscle use Neurologic/Psychiatric: r d engineer II-XII nml as tested, alert, normal mood/affect Skin: normal color, warm/dry Laboratory Results Last 24 Hours Test 10/11/16 04:47 Activated Partial Thromboplast Time 46.9 SECONDS Partial Thromboplastin Ratio 1.8 Assessment and Plan 1. dyspnea, orthopnea - appearing multifactorial w effusion, acute on chronic systolic chf, ESRD, deconditioning, possible PE's -treating each component - seems to be fairly stable overall. 1.5L off w thoracentesis appearing likely CHF related. -continue ambulation and increasing activity -on room air. appearing that she will be stable for home once all below is taken care of. 2. acute/chronic systolic CHF - overall stable/improved. -appearing compensated now, continue HD management 3. ESRD on HD - appreciate nephrology consult. ongoing HD for better vascular access to be obtained this hospital stay 4. hypothyroidism - TSH 07/2016 was elevated and repeat TSH again elevated. Increased dose to 75mcg 3 days/week and 50mcg 4 days/week. Repeat TSH 6 weeks. 5. pleural effusions -now stable s/p thoracentesis 6. pulmonary HTN on last echo - need to asses for ambulatory O2 needs at d/c. 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 8. a. fib - in NSR on amiodarone. continue to follow 9. DVT proph - anticoagulation -- question of jail anticoagulation as below 10. probable acute sinusitis - day #6 doxy 100 BID. cont zakia BID, mucinex BID, nasal steroid, saline nasal drops prn 11. ? PEs on CTA with negative venous dopplers of legs - also concern on ?? clot on tricuspid valve. continue anticoagulation, vascular surg input -blood cultures negative so doubtful infectious -repeat echo to follow status of tricuspid valve vegetation (since no growth on blood cultures and has been on heparin - if clot would expect it to be smaller or gone) -repeat chest CT - reaching out to nephro on optimal timing as relates to HD 12. ? tricuspid valve vegetation - her blood cultures are negative and she has no symptoms of endocarditis. No evidence of septic emboli on CT chest. -as above repeat echo 13. right-sided infiltrates on CT - likely atelectasis due to pleural effusion but bears watching carefully. has not worsened off abx. blood cultures still negative to date; while repeat CT chest will be to further evaluate status of ?? PE to allow for better terminal manager decision making in regards to anticoagulation - it will show this as well 14. hyponatremia - 2nd to CKD/ESRD - improved. 15. anemia 2nd to ESRD/CKD - H/H stable; management per nephrology Continued [facility] stay due to: other (?PEs, right sided pleural effusion) Discharge planning: home
[2016-10-11] MEDS: ACETAMINOPHEN 325 MG TAB PO PRN (20:37)
[2016-10-11] MEDS: DOCUSATE SODIUM 100 MG CAP PO SCH (20:39)
[2016-10-12] VITALS: O2SAT 95
[2016-10-12] MEDS: ACETAMINOPHEN 325 MG TAB PO PRN (00:07)
[2016-10-12 00:22] VITALS: BP 114/70; PULSE 56; TEMP 36.5; O2SAT 95
[2016-10-12] MEDS ORDERED: CLINDAMYCIN 600 MG/54 ML D5W IV SCH (06:00)
[2016-10-12] MEDS: LEVOTHYROXINE 50 MCG TAB PO SCH (06:36)
[2016-10-12 07:10] VITALS: BP 133/84; PULSE 58; TEMP 36.5; O2SAT 96
[2016-10-12 07:14] LABS: HEMATOCRIT 31.8 % (37-47); MEAN CELL VOLUME 89.6 fL (80-100); MEAN CORPUSCULAR HEMOGLOBIN 30.4 pg (25-34); MEAN PLATELET VOLUME 9.8 fL (7.4-10.4); PLATELET COUNT 300 K/uL (130-400); RED BLOOD COUNT 3.55 M/uL (4.2-5.4); WHITE BLOOD COUNT 8.22 K/uL (4.8-10.8)
[2016-10-12 07:32] LABS: PARTIAL THROMBOPLASTIN RATIO 2.5
--- NOTE | 2016-10-12 07:57 | Surgery Progress Note ---
Subjective Date of Service: Oct 12, 2016. Pt. offer no complaint and states her breathing feels comfortable. Objective Vitals Date Time Temp Pulse Resp B/P Pulse Ox O2 Delivery O2 Flow Rate FiO2 10/12/16 07:10 36.5 58 20 133/84 96 Room Air 10/12/16 00:22 36.5 56 20 114/70 95 Room Air 10/12/16 00:00 95 Room Air 10/11/16 16:20 Room Air 10/11/16 14:58 36.6 77 20 111/73 93 Room Air 10/11/16 08:03 Room Air Physical Exam General: + well developed, + well nourished, No distress CV: + RRR Pulmonary: + pertinent finding (decreased at left base), No accessory muscle use, No respiratory distress Neurologic: + alert & oriented x 3 Assessment & Plan 81 year old female with bilateral pleural effusions -decubitus CXR performed (10/05/16) which shows that effusions are small -CT scan results noted (10/06/16); small left effusion noted; effusion on right noted to be moderate; concern noted for possible PE: -thoracentesis performed (10/09/16): -cultures are (-) -cytology (-) for malignancy -continue to follow clinically as well as serial CXR
[2016-10-12] MEDS: FEXOFENADINE HCL 60 MG TAB PO SCH (08:00)
[2016-10-12] MEDS ORDERED: EPOETIN ALFA INJ 5,000 UNITS in SYRINGE 0 ML IV. SCH (08:00)
[2016-10-12] MEDS: CHOLECALCIFEROL 1000 INTER.UNIT TAB PO SCH (08:00)
[2016-10-12] MEDS: CALCIUM CARBONATE 500 MG CHEWABLE PO SCH ×3 (08:00→17:45)
[2016-10-12] MEDS: ASPIRIN 81 MG ECTAB PO SCH (08:00)
[2016-10-12] MEDS ORDERED: OPTIRAY 320 IV PRN (09:00)
[2016-10-12] MEDS: GUAIFENESIN 600 MG TABCR PO SCH ×2 (09:00→21:15)
--- NOTE | 2016-10-12 09:10 | DIAGNOSTIC IMAGING REPORT ---
CT ANGIOGRAPHY OF THE CHEST, PULMONARY EMBOLUS PROTOCOL CLINICAL HISTORY: Possible pulmonary emboli on prior CT. Bilateral pleural effusions. End stage renal disease. COMPARISON STUDY: Chest CT October 06, 2016. TECHNIQUE: Following IV administration of 91 mL of Optiray-320, helical axial images of the chest were obtained utilizing the pulmonary embolus protocol. Maximal intensity projections and sagittal and coronal reformats were viewed on an independent 3D workstation. IV contrast was administered without complication. CT DOSE: 427.46 mGycm FINDINGS: No pulmonary emboli are identified. The findings shown on exam of October 06, 2016 are less pronounced and suggestive of artifact on that exam. There is marked cardiomegaly. There is no pericardial effusion. Small to moderate right and small left pleural effusions are noted. The right pleural effusion is decreased in size since prior exam. Associated groundglass opacities favor atelectasis. There is no consolidation to suggest pneumonia. Central airways are patent. There is no pneumothorax or thoracic lymphadenopathy. Reflux of contrast into the IVC and hepatic veins which are dilated suggests right heart dysfunction. Upper abdomen is otherwise unremarkable. There is mild anasarca. IMPRESSION: 1. No pulmonary emboli identified. The findings within the right pulmonary arteries on CT of October 06, 2016 are less pronounced on this exam and favor artifact. 2. Small to moderate right and small left pleural effusions. The right pleural effusion has decreased in size. 3. Marked cardiomegaly with CT evidence of right heart dysfunction. Electronically signed by: Jaime Li M.D. 10/12/2016 9:07 AM Dictated Date/Time: 10/12/2016 8:58 AM
--- NOTE | 2016-10-12 09:48 | PROGRESS NOTE ---
DATE: 10/12/2016 RENAL PROGRESS NOTE SUBJECTIVE: Mrs. Roth says that she is feeling relatively well. She is scheduled for surgery for the creation of an AV fistula in her left upper arm later this morning by Dr. Alonso. Hopefully, she will be able to be dialyzed after her procedure. At the current time, she says that she feels reasonably well. She denies nausea or vomiting and says her appetite is relatively good. She denies being significantly short of breath. She still has an intermittent hacking cough but it is nonproductive. She has no pleuritic chest pain or other chest pain. OBJECTIVE: GENERAL: On physical examination, she appears as a chronically ill, thin woman of about her stated age of 81. VITAL SIGNS: Her blood pressure today is 133/84 with a pulse of 58 and regular, respiratory rate is 20, her pulse ox 96% on room air and she is afebrile (36.5). SKIN: Shows a sallow complexion. She has scars from prior surgical procedures. She has a right IJ catheter exiting beneath the distal right clavicle. There is no tenderness over the subcutaneous tunnel or discharge from the exit site. LYMPHATICS: Show no palpable lymphadenopathy. HEAD: Normal. EYES: Grossly normal. The ocular fundi were not examined. EARS, NOSE, MOUTH AND THROAT: All unremarkable. Her oral mucous membranes are moist. NECK: Supple. At 90 degrees, she has minimal jugular venous distention. I hear no carotid bruit and there is no thyromegaly. She does have the right IJ catheter. CHEST: Shows diminished breath sounds at both bases with a few crackles, still present at the right base. I hear no pleural friction rub. She has some diminished breath sounds at the left base as well without rales or rhonchi. CARDIAC: Shows a regular rhythm. S1 and S2 are normal. There is a grade 3/6 systolic murmur at the base radiating toward the neck as well as along the left sternal border to the apex. No diastolic murmurs or gallops are heard. ABDOMEN: Nontender. There is no organomegaly or mass. EXTREMITIES: Show no cyanosis, clubbing or peripheral edema. NEUROLOGIC: Shows no lateralizing changes. She has no asterixis. PERTINENT LABORATORY WORK: From today shows a white count of 8220, her hemoglobin is 10.8, her hematocrit 31.8 and her platelet count 300,000. Her PTT is 65.3 with a PTTR of 2.5. Clinical chemistries were not done today. ASSESSMENT: Mrs. Roth appears to be doing reasonably well. PLAN: No change in her current program. She will be having another attempt at the creation of an AV fistula using a graft, to be done by Dr. Alonso at about noon today. After her procedure, she will have her regular hemodialysis treatment. If her surgery runs late, her dialysis will be tomorrow. She should be able to be discharged thereafter. Arrangements for her regular hemodialysis schedule at [facility] and they have been made. She should be discharged on her current medication. Outpatient anticoagulation should not be necessary.
[2016-10-12] MEDS: AMIODARONE 200 MG TAB PO SCH (09:57)
[2016-10-12] MEDS: TRIAMCINOLONE ACET NASAL SPRAY 10.8ML BTL NAE SCH (09:57)
[2016-10-12] MEDS: DOXYCYCLINE HYCLATE 100 MG CAP PO SCH ×2 (09:58→20:04)
[2016-10-12] MEDS: NEPHROCAPS PO SCH (09:58)
[2016-10-12] MEDS: CARVEDILOL 12.5 MG TAB PO SCH ×2 (09:58→20:00)
[2016-10-12] MEDS ORDERED: SODIUM CHLORIDE 0.9% 1000ML 1,000 ML IV PRN (10:22)
[2016-10-12] MEDS ORDERED: HEPARIN SOD (PORCINE) 1000 UNIT/ML 10 ML VIAL IV SCH (10:30)
[2016-10-12] MEDS: HEPARIN 25,000 UNIT/500ML D5W 500 ML IV PRN (12:30)
[2016-10-12 13:28] LABS: BUN/CREATININE RATIO 5.3 (10-20); POTASSIUM 4.6 mmol/L (3.5-5.1)
[2016-10-12] MEDS ORDERED: ATROPINE SULFATE 0.1 MG/ML 5ML SYR IV PRN (13:30)
[2016-10-12] MEDS ORDERED: EpHEDrine SULFATE INJ 50 MG/ML AMP IV PRN (13:30)
[2016-10-12] MEDS ORDERED: FENTANYL CITRATE INJ 50 MCG/1 ML 2 ML VIAL ONE (13:50)
[2016-10-12] MEDS ORDERED: PROPOFOL IV EMULSION 10 MG/ML 20 ML VIAL IV ONE (13:50)
[2016-10-12] MEDS ORDERED: MIDAZOLAM HCL 1 MG/ML 2ML VIAL ONE (13:50)
[2016-10-12] MEDS ORDERED: NURSING VERBAL MED ORDER ONE ×2 (13:55→17:15)
--- NOTE | 2016-10-12 14:03 | Progress Note ---
Progress Note Date of Service Oct 12, 2016. Progress Note Patient for a left upper arm av fistula creation. I have discussed the risks options and benefits of the procedure with the patient. The patient understands the risks options and benefits and agrees to the procedure. I have examined the patient, reviewed the History & Physical and in the interval since the performance of the History & Physical I have noted the following changes of clinical significance: No changes noted
[2016-10-12] MEDS ORDERED: GELATIN SPONGE 12-7MM ONE (14:04)
[2016-10-12] MEDS ORDERED: THROMBIN FOR SOLN 20000 UNIT KIT ONE (14:04)
[2016-10-12] MEDS ORDERED: BUPIVACAINE/EPINEPHRINE 0.5% MPF 1:200,000 30 ML VIAL ONE (14:04)
[2016-10-12] MEDS ORDERED: HEPARIN SOD (PORCINE) 1000 UNIT/ML 10 ML VIAL ONE ×2 (14:05→15:09)
[2016-10-12] MEDS ORDERED: LIDOCAINE HCL 1% 20 ML VIAL ONE (14:05)
[2016-10-12] MEDS ORDERED: BACITRACIN 50000 UNIT VIAL ONE (14:52)
--- NOTE | 2016-10-12 15:56 | [facility] Post Operative Brief Note ---
Immediate Operative Summary Operative Date Oct 12, 2016. Pre-Operative Diagnosis end-stage renal disease Post-Operative Diagnosis same Procedure(s) Performed left upper arm prosthetic fistula Surgeon Dr. Alonso Estimated Blood Loss 20 ml Findings good thrill Specimens no specimen per surgeon Anesthesia MAC Complication(s) None Disposition
--- NOTE | 2016-10-12 15:59 | Progress Note ---
Subjective Date of Service: Oct 12, 2016. Subjective Pt evaluation today including: conversation w/ patient, physical exam, chart review, lab review, review of studies, conversation w/ consultant internship, review of inpatient medication list feeling fairly well no new sob. hungry. awaiting procedure and then HD d/w nephrology no other new complaints Problem List Medical Problems: (1) Bilateral pleural effusion Status: Acute (2) Dyspnea on exertion Status: Acute (3) Left sided chest pain Status: Acute (4) Precordial chest pain Status: Acute (5) Renal failure (ARF), acute on chronic Status: Acute (6) Renal insufficiency Status: Acute Review of Systems ros otherwise negative except for as above Objective Vital Signs Date Time Temp Pulse Resp B/P Pulse Ox O2 Delivery O2 Flow Rate FiO2 10/12/16 08:00 Room Air 10/12/16 07:10 36.5 58 20 133/84 96 Room Air 10/12/16 00:22 36.5 56 20 114/70 95 Room Air 10/12/16 00:00 95 Room Air 10/11/16 16:20 Room Air Physical Exam General Appearance: no apparent distress Eyes: EOMI ENT: hearing grossly normal Neck: trachea midline Respiratory/Chest: no respiratory distress, no accessory muscle use Neurologic/Psychiatric: lapeler II-XII nml as tested, alert, normal mood/affect Skin: normal color, warm/dry Laboratory Results Last 24 Hours Test 10/12/16 06:58 10/12/16 12:25 White Blood Count 8.22 K/uL Red Blood Count 3.55 M/uL Hemoglobin 10.8 g/dL Hematocrit 31.8 % Mean Corpuscular Volume 89.6 fL Mean Corpuscular Hemoglobin 30.4 pg Mean Corpuscular Hemoglobin Concent 34.0 g/dl RDW Standard Deviation 61.6 fL RDW Coefficient of Variation 19.0 % Platelet Count 300 K/uL Mean Platelet Volume 9.8 fL Nucleated RBC Absolute Count (auto) 0.07 K/uL Nucleated Red Blood Cells % 0.8 % Activated Partial Thromboplast Time 65.3 SECONDS Partial Thromboplastin Ratio 2.5 Sodium Level 126 mmol/L Potassium Level 4.6 mmol/L Chloride Level 89 mmol/L Carbon Dioxide Level 24 mmol/L Anion Gap 13.0 mmol/L Blood Urea Nitrogen 26 mg/dl Creatinine 5.00 mg/dl Est Creatinine Clear Calc Drug Dose 9.0 ml/min Estimated GFR () 8.9 Estimated GFR (Non- 7.6 BUN/Creatinine Ratio 5.3 Random Glucose 114 mg/dl Calcium Level 9.0 mg/dl Assessment and Plan 1. dyspnea, orthopnea - appearing multifactorial w effusion, acute on chronic systolic chf, ESRD, deconditioning, (formerly possible PE on ddx but this seems unlikely) -treating each component - seems to be fairly stable overall. 1.5L off w thoracentesis appearing likely CHF related. -continue ambulation and increasing activity -on room air. appearing that she will be stable for home once all below is taken care of. 2. acute/chronic systolic CHF - overall stable/improved. -appearing compensated now, continue HD management 3. ESRD on HD - appreciate nephrology consult. ongoing HD for better vascular access to be obtained today 4. hypothyroidism - TSH 07/2016 was elevated and repeat TSH again elevated. Increased dose to 75mcg 3 days/week and 50mcg 4 days/week. Repeat TSH 6 weeks. 5. pleural effusions -now stable s/p thoracentesis 6. 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 8. a. fib - in NSR on amiodarone. continue to follow 9. DVT proph - anticoagulation -- question of shelter anticoagulation as below but right now seems less favorable. 10. probable acute sinusitis - day #7 doxy 100 BID. cont zakia BID, mucinex BID, nasal steroid, saline nasal drops prn 11. ? PEs on CTA with negative venous dopplers of legs - also concern on ?? clot on tricuspid valve. -blood cultures have all been negative, afebrile = effectively ruling out infectious cause -repeat echo normal, repeat CT chest clearly no PE (was ?artifact vs real before ) -- therefore ??both were artifact vs w anticoagulation tricuspid clot then went away (this seems less likely) -will be OK to discharge off anticoagulation 12. ? tricuspid valve vegetation - her blood cultures are negative and she has no symptoms of endocarditis. -see above, will be able to discharge off of anticoagulation 13. right-sided infiltrates on CT - with further review, and w CT post thoracentesis, appears to have been atelectasis 14. hyponatremia - 2nd to CKD/ESRD - improved. 15. anemia 2nd to ESRD/CKD - H/H stable; management per nephrology improving. hopefully home tomorrow Continued [facility] stay due to: other (?PEs, right sided pleural effusion) Discharge planning: home
[2016-10-12] MEDS ORDERED: OXYCODONE/ACETAMINOPHEN 5-325 TAB PO PRN (16:00)
--- NOTE | 2016-10-12 16:42 | OPERATIVE REPORT ---
DATE OF OPERATION: 10/12/2016 PREOPERATIVE DIAGNOSIS: End-stage renal disease. POSTOPERATIVE DIAGNOSIS: Same. PROCEDURE: Left upper extremity brachioaxillary AV graft. SURGEON: Dr. Duke Alonso. MULTICULTURAL INTERNSHIP: Dr. Tatiana Guerrero and Karen Schmidt PA-C ANESTHESIA: Local plus conscious sedation. ESTIMATED BLOOD LOSS: 20. FLUIDS: 100 of crystalloid. URINE OUTPUT: Not recorded. COMPLICATIONS: None apparent. CONDITION: Stable to PACU. INDICATIONS: Ms. Cherri Roth is a 81-year-old female on hemodialysis due to her end-stage renal disease which she gets through her right internal jugular tunneled line. She was advised of the risks and benefits of an AV graft. She did not have adequate vein to do an AV fistula. She agreed to undergo the procedure. DESCRIPTION OF PROCEDURE: The patient was brought into the operative suite. She was prepped and draped in the usual fashion. A timeout occurred. Local anesthesia was instilled along her incision line above her incision for her brachial artery which was just proximal to her antecubital fossa. The artery was dissected out. Once adequate length was obtained, attention was turned to the venous outflow. Local anesthesia was instilled along her inner arm and her axillary. Her axillary vein was then dissected out. Adequate length of this was dissected. Then the tunneled path was anesthetized with local anesthesia. A tunneler was used to tunnel on the dorsal aspect of her arm. A 6 mm PTFE Propaten graft was passed through the tunneler and the tunneler was removed. The venous anastomosis was accomplished next. This was done in an end-to-side fashion with a running CV6 suture. Once the anastomosis was completed, was flushed out the back of the graft to remove all bubbles. Hemostasis was obtained. Attention was then turned to the inner atrial anastomosis. The graft was cut to size and the arterial anastomosis was sewn in an end-to-side fashion with running CV6 suture. Once this was completed, hemostasis was obtained. There was a good thrill in the graft and both incisions were inspected for hemostasis. Once this was adequate, the incisions were closed with 3-0 Vicryl and 4-0 Monocryl. The patient tolerated the procedure well and was taken to PACU in stable condition. Dr. Duke Alonso was present for the entirety of this case. I attest to the content of the Intraoperative Record and any orders documented therein. Any exceptio ns are noted below.
--- NOTE | 2016-10-12 16:47 | Anesthesiology Progress Note ---
Anesthesia Post Op Note Date & Time Oct 12, 2016 at 16:47 Vital Signs Pain Intensity: 0 Vital Signs Past 12 Hours Date Time Temp Pulse Resp B/P Pulse Ox O2 Delivery O2 Flow Rate FiO2 10/12/16 16:40 52 13 134/74 93 Room Air 10/12/16 16:30 53 19 138/76 94 Room Air 10/12/16 16:23 36.6 55 20 130/80 94 Room Air 10/12/16 08:00 Room Air 10/12/16 07:10 36.5 58 20 133/84 96 Room Air Notes Mental Status: alert / awake / arousable, participated in evaluation Pt Amnestic to Procedure: Yes Nausea / Vomiting: adequately controlled Pain: adequately controlled Airway Patency, RR, SpO2: stable & adequate BP & HR: stable & adequate Hydration State: stable & adequate Anesthetic Complications: no major complications apparent
[2016-10-12 17:10] VITALS: BP 130/76; PULSE 54; TEMP 36.6; O2SAT 95
[2016-10-12] MEDS ORDERED: HEPARIN 25,000 UNIT/500ML D5W 500 ML IV PRN (17:30)
[2016-10-12] MEDS: DOCUSATE SODIUM 100 MG CAP PO SCH (21:15)
[2016-10-12] MEDS: LORAZEPAM 1 MG TAB PO PRN (21:16)
[2016-10-12 23:16] VITALS: BP 116/66; PULSE 57; TEMP 36.8; O2SAT 95
[2016-10-13] VITALS (19 sets, daily range): BP systolic 109–144; BP diastolic 46–80; PULSE 58–65; TEMP 36.6–36.8; O2SAT 96
[2016-10-13] MEDS: LEVOTHYROXINE 75 MCG TAB PO SCH (06:05)
[2016-10-13] MEDS: CALCIUM CARBONATE 500 MG CHEWABLE PO SCH ×3 (08:00→17:00)
[2016-10-13 08:22] LABS: PARTIAL THROMBOPLASTIN RATIO 2.3
[2016-10-13] MEDS: TRIAMCINOLONE ACET NASAL SPRAY 10.8ML BTL NAE SCH (13:32)
[2016-10-13] MEDS: ASPIRIN 81 MG ECTAB PO SCH (13:33)
[2016-10-13] MEDS: NEPHROCAPS PO SCH (13:33)
[2016-10-13] MEDS: DOXYCYCLINE HYCLATE 100 MG CAP PO SCH (13:33)
[2016-10-13] MEDS: GUAIFENESIN 600 MG TABCR PO SCH (13:33)
[2016-10-13] MEDS: FEXOFENADINE HCL 60 MG TAB PO SCH (13:33)
[2016-10-13] MEDS: CHOLECALCIFEROL 1000 INTER.UNIT TAB PO SCH (13:34)
[2016-10-13] MEDS: CARVEDILOL 12.5 MG TAB PO SCH (13:34)
[2016-10-13] MEDS: AMIODARONE 200 MG TAB PO SCH (13:34)
[2016-10-13] MEDS: ACETAMINOPHEN 325 MG TAB PO PRN (13:43)
--- NOTE | 2016-10-13 14:45 | Dialysis Progress Note ---
Hemodialysis Note Date of Service Oct 13, 2016. Chief Complaint ESRD Subjective No acute events overnight. Cherri has no complaints this morning. She was seen and evaluated during hemodialysis. Cherri was tolerating the procedure well. She feels well and is ready for discharge. She has been tolerating hemodialysis well. Left AVF placed yesterday with graft. Patient tolerated procedure well. Pain control appropriate. Review of Systems A complete review of systems was performed. Pertinent positives are noted above. All other systems are negative. Vital Signs Last 8 Hrs Date Time Temp Pulse Resp B/P Pulse Ox O2 Delivery O2 Flow Rate FiO2 10/13/16 13:30 63 124/64 10/13/16 10:45 58 109/56 10/13/16 10:30 59 121/65 10/13/16 10:15 61 125/69 10/13/16 10:00 60 124/73 10/13/16 09:45 59 125/71 10/13/16 09:33 58 141/72 10/13/16 09:25 36.8 60 121/71 10/13/16 08:06 36.6 62 18 133/72 96 Room Air 10/13/16 08:00 Room Air I & O 24-Hour Column 10/13/16 08:00 Intake Total 643 ml Output Total 120 ml Balance 523 ml Last Recorded Weight Weight (Kilograms): 66.400 Physical Exam General Appearance: WD/WN, no apparent distress Head: normocephalic, atraumatic Eyes: normal inspection, sclerae normal ENT: normal ENT inspection, pharynx normal Neck: supple, + JVD (increased JVP), + pertinent finding ([facility]) Respiratory/Chest: lungs clear, no respiratory distress, no accessory muscle use, + rales (few basilar) Cardiovascular: regular rate, rhythm, no gallop, no murmur Abdomen/GI: non tender, soft Extremities/Musculoskelatal: normal inspection, no pedal edema, + pertinent finding (incision clean and intact) Neurologic/Psych: alert, oriented x 3 Social History Smoking Status: Never smoker Smokeless Tobacco Use: No Alcohol Use: none Drug Use: none Marital Status: Housing Status: lives alone Occupation: retired Laboratory Results Past 24 Hours Test 10/13/16 07:45 10/13/16 08:54 Activated Partial Thromboplast Time 60.5 SECONDS (21.0-31.0) Partial Thromboplastin Ratio 2.3 Allergies Coded Allergies: Amoxicillin (Verified Allergy, Severe, UNKOWN, 10/03/16) Clavulanic Acid (Verified Allergy, Severe, UNKOWN, 10/03/16) Nortriptyline (Verified Allergy, Severe, UNKNOWN, 10/03/16) Aloe (Verified Allergy, Intermediate, rash, 10/03/16) Amitriptyline (Verified Allergy, Unknown, unknown, 10/03/16) Amlodipine (Verified Allergy, Unknown, UNKNOWN, 10/03/16) Atorvastatin (Verified Allergy, Unknown, 10/03/16) Azathioprine (Verified Allergy, Unknown, 10/03/16) Barbiturates (Verified Allergy, Unknown, TAKES DARVOCET AT HOME, 10/03/16) Beta Adrenergic Blockers (Verified Allergy, Unknown, -, 10/03/16) Butalbital (Verified Allergy, Unknown, TAKES DARVOCET AT HOME, 10/03/16) Cefaclor (Verified Allergy, Unknown, RECEIVED ANCEF PREOP IN OR (08/05/12) , 10/03/16) Cefuroxime (Unverified Allergy, Unknown, UNKNOWN, 10/03/16) Cephalosporins (Verified Allergy, Unknown, 10/03/16) Chlorpheniramine (Verified Allergy, Unknown, 10/03/16) Cholestyramine (Verified Allergy, Unknown, 10/03/16) Ciprofloxacin (Verified Allergy, Unknown, redness and swelling, 10/03/16) Clonidine (Verified Allergy, Unknown, unknown, 10/03/16) Codeine (Verified Allergy, Unknown, TAKES DARVOCET AT HOME, 10/03/16) Dextromethorphan (Verified Allergy, Unknown, TAKES DARVOCET AT HOME, ) Diltiazem (Verified Allergy, Unknown, 10/03/16) Escitalopram (Verified Allergy, Unknown, 10/03/16) Estrogens (Verified Allergy, Unknown, 10/03/16) Felodipine (Verified Allergy, Unknown, 10/03/16) Ferrous Sulfate (Verified Allergy, Unknown, UNKNOWN, 10/03/16) Hydralazine (Verified Allergy, Unknown, unknown, 10/03/16) Hydrochlorothiazide (Verified Allergy, Unknown, 10/03/16) Hydrocodone (Verified Allergy, Unknown, TAKES DARVOCET AT HOME, 10/03/16) Hydrocortisone (Verified Allergy, Unknown, unknown, 10/03/16) Hydromorphone (Verified Allergy, Unknown, unknown, 10/03/16) Ibuprofen (Verified Allergy, Unknown, TAKES EC ASA AT HOME, 10/03/16) Indapamide (Verified Allergy, Unknown, 10/03/16) Ipratropium (Verified Allergy, Unknown, UNKNOWN, 10/03/16) Isosorbide Nitrate (Verified Allergy, Unknown, UNKNOWN, 10/03/16) Ketoconazole (Verified Allergy, Unknown, unknown, 10/03/16) Lisinopril (Verified Allergy, Unknown, 10/03/16) Losartan (Verified Allergy, Unknown, 10/03/16) Mesalamine (Verified Allergy, Unknown, 10/03/16) Methyltestosterone (Verified Allergy, Unknown, 10/03/16) Metoprolol (Verified Allergy, Unknown, 10/03/16) NSAIDs (Verified Allergy, Unknown, though takes ecotrin at home, 10/03/16) Olsalazine (Verified Allergy, Unknown, 10/03/16) Phenylpropanolamine (Verified Allergy, Unknown, 10/03/16) Pilocarpine (Verified Allergy, Unknown, UNKNOWN, 10/03/16) Progestins (Verified Allergy, Unknown, 10/03/16) Propranolol (Verified Allergy, Unknown, UNKNOWN, 10/03/16) Propylene Glycol (Verified Allergy, Unknown, 10/03/16) Rabeprazole (Verified Allergy, Unknown, 10/03/16) Sertraline (Verified Allergy, Unknown, UNKNOWN, 10/03/16) Simvastatin (Verified Allergy, Unknown, 10/03/16) Sulfa Antibiotics (Verified Allergy, Unknown, UNKNOWN, 10/03/16) Sulfacetamide (Verified Allergy, Unknown, 10/03/16) Sulfur (Verified Allergy, Unknown, 10/03/16) Terazosin (Verified Allergy, Unknown, 10/03/16) Terfenadine (Verified Allergy, Unknown, 10/03/16) Torsemide (Unverified Allergy, Unknown, UNKNOWN, 10/03/16) Tramadol (Verified Allergy, Unknown, unknown, 10/03/16) Triamterene (Verified Allergy, Unknown, 10/03/16) Verapamil (Verified Allergy, Unknown, 10/03/16) Calcium Acetate (Verified Adverse Reaction, Mild, CONSTIPATION, 10/03/16) Uncoded Allergies: XANTHINE (Allergy, Unknown, TAKES DARVOCET AT HOME, 04/10/14) PT CLAIMS SHE CAN TOLERATE CAFFEINE Medications Current Inpatient Medications Medications (Trade) Dose Ordered Sig/Jose David Route Start Time Stop Time Status Last Admin Dose Admin Acetaminophen (Tylenol Tab) 650 mg Q4H PRN PO 10/03/16 21:15 11/02/16 21:14 10/13/16 13:43 650 MG Zolpidem Tartrate (Ambien Tab) 5 mg HSZ PRN PO 10/03/16 21:15 11/02/16 21:14 10/09/16 00:52 5 MG Ondansetron HCl (Zofran Inj) 4 mg Q6H PRN IV 10/03/16 21:15 11/02/16 21:14 Amiodarone HCl (Cordarone Tab) 200 mg QAM PO 10/04/16 09:00 11/03/16 08:59 10/13/16 13:34 200 MG Aspirin (Ecotrin Tab) 81 mg QAM PO 10/04/16 09:00 11/03/16 08:59 10/13/16 13:33 81 MG Docusate Sodium (coLACE CAP) 100 mg QPM PO 10/04/16 21:00 11/03/16 20:59 10/12/16 21:15 100 MG Lorazepam (Ativan Tab) 1 mg TID PRN PO 10/04/16 08:30 11/03/16 08:29 10/12/16 21:16 1 MG Carvedilol (Coreg Tab) 18.75 mg BID PO 10/04/16 10:30 11/03/16 10:29 10/13/16 13:34 18.75 MG Calcium Carbonate (Tums Chew Tab) 1,500 mg TIDM PO 10/05/16 11:30 11/04/16 11:29 10/12/16 17:45 1,500 MG Vitamin B Complex/ Vit C/Folic Acid (Nephrocaps) 1 cap QAM PO 10/06/16 09:00 11/05/16 08:59 10/13/16 13:33 1 CAP Guaifenesin (Mucinex Contr Rel Tab) 600 mg Q12 PO 10/05/16 14:15 11/04/16 14:14 10/13/16 13:33 600 MG Cholecalciferol (Vitamin D Tab) 5,000 inter.unit QAM PO 10/06/16 09:00 11/05/16 08:59 10/13/16 13:34 5,000 INTER.UNIT Doxycycline Hyclate (Vibramycin Cap) 100 mg BID PO 10/05/16 19:30 10/15/16 19:29 10/13/16 13:33 100 MG Sodium Chloride ([place] Nasal [place]) 2 sprays Q1H PRN NA 10/05/16 19:00 11/04/16 18:59 Levothyroxine Sodium (Synthroid Tab) 50 mcg SuMoWeFr@0600 PO 10/07/16 06:00 11/06/16 05:59 10/12/16 06:36 50 MCG Levothyroxine Sodium (Synthroid Tab) 75 mcg TuThSa@0600 PO 10/06/16 06:00 11/05/16 05:59 10/13/16 06:05 75 MCG Hydrocortisone (Hydrocortisone 1% Crm) 1 appln Q4H PRN EXT 10/06/16 03:00 11/05/16 02:59 10/06/16 03:46 1 APPLN Triamcinolone Acetonide (Nasacort Allergy 24hr) 2 sprays DAILY MARYANA 10/06/16 21:30 11/05/16 21:29 10/13/16 13:32 2 SPRAYS Benzonatate (Tessalon Perles Cap) 100 mg Q8H PRN PO 10/07/16 12:45 11/06/16 12:44 10/10/16 07:51 100 MG Menthol (Nice Vaishali) 1 vaishali PRN PRN PO 10/07/16 15:45 11/06/16 15:44 Fexofenadine HCl ([place]acy Tab) 30 mg DAILY PO 10/12/16 08:00 11/11/16 07:59 10/13/16 13:33 30 MG Ioversol (Optiray 320) 100 ml UD PRN IV 10/12/16 09:00 10/16/16 08:59 Oxycodone/ Acetaminophen 1 tab 1 tab Q4H PRN PO 10/12/16 16:00 10/26/16 15:59 Heparin Sodium/ Dextrose (Heparin 25,000 Unit/500ml D5W) 500 ml @ 20 mls/hr Q24H PRN IV 10/12/16 17:30 11/11/16 17:29 10/12/16 17:42 20 MLS/HR Impression (1) End stage renal disease (2) Pleural effusion on left (3) Anemia (4) Secondary hyperparathyroidism of renal origin (5) Hypertension Cherri is a 81-year-old female with end-stage renal disease on hemodialysis. Outpatient dialysis is at [facility] dialysis unit. Her primary electronic equipment repairmen is Dr. Solorzano. She was admitted to the hospital with shortness of breath and found to have left sided pleural effusion. She was started on doxycycline. Blood cultures were negative. Respiratory symptoms have dramatically improved. Chelly feels well today. She is stable for discharge. She has a right IJ permcath. Left radiocephalic AV fistula unfortunately had primary failure. Left brachiocephalic AV fistula was placed by yesterday. Recommendations -- Professional oversight to hemodialysis provided today -- Patient is stable for discharge with outpatient follow up with nephrology at [facility] with Dr. Solorzano -- Medications are appropriate for renal function
[2016-10-13] MEDS ORDERED: SYN50 PO (15:03)
[2016-10-13] MEDS ORDERED: SYN75 PO (15:03)
[2016-10-13] MEDS ORDERED: CRG125 PO (15:03)
--- NOTE | 2016-10-13 15:05 | Discharge Instructions ---
Discharge Instructions Date of Service Oct 13, 2016. Admission Reason for Admission: Bilateral Pleural Effusion, End Stage Renal Diseas Discharge Discharge Diagnosis / Problem: pleural effusions Discharge Goals Goal(s): Diagnostic testing, Therapeutic intervention Activity Recommendations Activity Limitations: resume your previous activity . Instructions / Follow-Up Instructions / Follow-Up have a repeat TSH checked in about 6 weeks Call your Primary Care doctor if any of the following symptoms or problems start or get worse: * Shortness of breath or difficulty breathing * Wake up at night short of breath * Chest pain * Cough * Swelling of your hands, feet, or legs * More fatigued or tired with your normal activity * Palpitations - sudden fast heart beats WEIGHT * Weigh yourself every morning after using the bathroom. * Use the same scale. * Wear the same amount of clothing. * Write your weight down on a chart. * Call your Primary Care doctor if you gain more than 2-3 pounds in 1-2 days. MEDICATIONS * Use this discharge instruction sheet for medication instructions. * Take your medications at the time your doctor ordered. * Do not skip a dose of your medicines. * If you miss a dose of medicine, take it as soon as possible, but DO NOT DOUBLE A DOSE. * Read your medicine information when you get home. * Know all of the side effects of your medicine. If in doubt, ask your pharmacist * Call your Primary Care doctor's office if you have any side effects. * Be sure all of your doctors know what medicine and herbs you take (including cold, flu, and herbal medicine). Take the following with you to your follow-up doctor appointments: * Weight Chart * Medication List * List of questions Do not drink excessive alcohol, beer or wine. Current Hospital Diet Patient's current hospital diet: Renal Diet Discharge Diet Recommended Diet: Low Sodium Diet (2gm Na), Renal Diet Procedures Procedures Performed: Left Upper Extremity Prosthetic Arteriovenous Access Pending Studies Studies pending at discharge: yes List of pending studies: pleural fluid fungal and Tb cultures - although these are done as "a matter of course" when a thoracentesis is performed and we don't expect any findings Medical Emergencies . Who to Call and When: Call 911 or go to the Emergency Room if: * If at any time you feel your situation is an emergency * You have tightness or pain in your chest that does not go away with rest or Nitroglycerin * You are very short of breath even with rest . Non-Emergent Contact Non-Emergency issues call your: Primary Care Provider, [employer] . . "Provider Documentation" section prepared by Duglas Rowan. VTE Core Measure Inpt VTE Proph given/why not?: Other Anticoagulation, SCD's
--- NOTE | 2016-10-13 19:09 | Discharge Summary ---
Discharge Summary Date of Service Oct 13, 2016. Discharge Summary Admission Date: Oct 03, 2016 at 21:09 Discharge Date: Oct 13, 2016 Principal Diagnosis: multifactorial shortness of breath Immunizations: Have You Had Influenza Vaccine: Yes History of Tetanus Vaccine?: utd History of Pneumococcal: Yes History of Hepatitis B Vaccine: Unknown Procedures: [~ rep ct add3]] CT ANGIOGRAPHY OF THE CHEST, PULMONARY EMBOLUS PROTOCOL CLINICAL HISTORY: Possible pulmonary emboli on prior CT. Bilateral pleural effusions. End stage renal disease. COMPARISON STUDY: Chest CT October 06, 2016. TECHNIQUE: Following IV administration of 91 mL of Optiray-320, helical axial images of the chest were obtained utilizing the pulmonary embolus protocol. Maximal intensity projections and sagittal and coronal reformats were viewed on an independent 3D workstation. IV contrast was administered without complication. CT DOSE: 427.46 mGycm FINDINGS: No pulmonary emboli are identified. The findings shown on exam of October 06, 2016 are less pronounced and suggestive of artifact on that exam. There is marked cardiomegaly. There is no pericardial effusion. Small to moderate right and small left pleural effusions are noted. The right pleural effusion is decreased in size since prior exam. Associated groundglass opacities favor atelectasis. There is no consolidation to suggest pneumonia. Central airways are patent. There is no pneumothorax or thoracic lymphadenopathy. Reflux of contrast into the IVC and hepatic veins which are dilated suggests right heart dysfunction. Upper abdomen is otherwise unremarkable. There is mild anasarca. IMPRESSION: 1. No pulmonary emboli identified. The findings within the right pulmonary arteries on CT of October 06, 2016 are less pronounced on this exam and favor artifact. 2. Small to moderate right and small left pleural effusions. The right pleural effusion has decreased in size. 3. Marked cardiomegaly with CT evidence of right heart dysfunction. Electronically signed by: Jaime Li M.D. 10/12/2016 9:07 AM Dictated Date/Time: 10/12/2016 8:58 AM Interpretation Summary * Name: SHANNON ABAD Study Date: 10/11/2016 02:48 PM BP: 121/67 mmHg * Patient Location: 2T\S\E215\S\1 HR: 56 * : 1935 (M/d/yyyy) Gender: Female Height: 68 in * Age: 81 yrs Ethnicity: CA Weight: 137 lb * Ordering Physician: Duglas Rowan * Performed By: Nyla Dinero * * Reason For Study: FOLLOW UP- TRICUSPID VALVE MASS * BSA: 1.7 m2 * -- Conclusions -- * 1. Mildly dilated left ventricle with severely reduced systolic function. EF 20-25%. Severe global hypokinesis with akinesis of the mid to distal inferior wall. Mild concentric left ventricular hypertrophy. * 2. Mildly dilated right ventricle with visually moderately reduced systolic function. * 3. Mild biatrial dilation. * 4. No definite tricuspid valve mass. * 5. Moderate tricuspid regurgitation. * 6. Aortic valve appears visually stenotic, however spectral Doppler studies were not performed across the aortic valve for this limited 2D echo with limited color. * 7. Pleural effusion. * 8. Limited 2D echo with limited color Doppler. * 9. Compared to prior study on 10/05/2016, tricuspid valve is currently better visualized. Procedure Details * Left Ventricle Mildly dilated left ventricle with severely reduced systolic function. EF 20-25 %. Severe global hypokinesis with akinesis of the mid to distal inferior wall. Mild concentric left ventricular hypertrophy. * Right Ventricle The right ventricle is mildly dilated. Moderately reduced right ventricular systolic function. * Atria The left atrium is mildly dilated. The right atrium is mildly dilated. * Mitral Valve There is moderate mitral annular calcification. Mitral valve leaflets appear structurally normal. * Tricuspid Valve Tricuspid valve leaflets appear normal. There is moderate tricuspid regurgitation. * Aortic Valve Aortic valve appears calcified and visually stenotic however Doppler studies were not performed on this limited echo. * Pulmonic Valve The pulmonic valve is not well visualized. * Great Vessels The aortic root is normal size. * Pericardium/Pleural There is no pericardial effusion. Pleural effusion. * Great Vessels Severely dilated IVC with reduced inspiratory collapse. BILATERAL LOWER EXTREMITY VENOUS DOPPLER CLINICAL HISTORY: Possible pulmonary emboli. Dyspnea. COMPARISON STUDY: Bilateral lower extremity venous Doppler June 22, 2008. TECHNIQUE: Sonography of the deep venous system of the bilateral lower extremities was performed. Compression and augmentation were evaluated. FINDINGS: The bilateral common femoral, superficial femoral and popliteal veins were compressible. Augmentation was normal. Flow was shown within the deep calf vessels. IMPRESSION: No evidence of deep venous thrombus within the bilateral lower extremities. Electronically signed by: Jaime Li M.D. 10/06/2016 10:46 PM Dictated Date/Time: 10/06/2016 10:45 PM Last Resulted CBC 10/12/16 06:58 Last Resulted BMP 10/12/16 12:25 Consultations: nephrology vascular surgery Medication Reconciliation New Medications: Carvedilol (Carvedilol) 12.5 Mg Tab 18.75 MG PO BID, #60 TAB Levothyroxine Sodium (Synthroid) 50 Mcg Tab 50 MCG PO SuMoWeFr@0600, #30 TAB Levothyroxine Sodium (Synthroid) 75 Mcg Tab 75 MCG PO TuThSa@0600, #30 TAB Continued Medications: Acetaminophen (Tylenol) 500 Mg Tab 500 MG PO DIRECTED PRN for Pain, TAB Amiodarone Hcl (Cordarone) 200 Mg Tab 200 MG PO QAM, TAB Aspirin (Aspirin 81) 81 Mg Tab 81 MG PO QAM Llqrajw-Ciqaawujvzlcn-Zcyigwfk (Migraine Relief) 1 Tab Tab 1 TAB PO UD PRN for Migraine B-Complex W/ C & Folic Acid ([place] Caps) 1 Cap Cap 2 CAP PO QAM Calcium Acetate (Phoslo 667 Mg) 667 Mg Cap 2 CAP PO TID AFTER MEALS for 30 Days, CAP 5 Refills ALSO TAKES AFTER SNACKS Cholecalciferol (Vitamin D3) 5,000 Unit Cap 1 CAP PO QAM Docusate Sodium (Colace) 100 Mg Cap 1 CAP PO QPM for 15 Days, CAP Epoetin Jose R (Procrit) 40,000 Units Inj 42679 UNITS INJ DIRECTED PRN for DIALYSIS GIVEN BY DIALYSIS IF NEEDED. Lorazepam (Ativan) 1 Mg Tab 1 MG PO TID PRN for Anxiety/Agitation Discontinued Medications: Guaifenesin (Robitussin Mucus+Chest Co) 100 Mg/5 Ml Liq 1 DOSE PO DIRECTED PRN for Cough Discharge Exam Physical Exam: General Appearance: no apparent distress Eyes: EOMI ENT: hearing grossly normal Neck: trachea midline Respiratory/Chest: no respiratory distress, no accessory muscle use Neurologic/Psychiatric: executive marketing assistant II-XII nml as tested, alert Skin: normal color, warm/dry Hospital Course 1. dyspnea, orthopnea - appearing multifactorial w effusion, acute on chronic systolic chf, ESRD, deconditioning, (formerly possible PE on ddx but this seems unlikely) -treating each component - seems to be fairly stable overall. 1.5L off w thoracentesis appearing likely CHF related. -continue ambulation and increasing activity -on room air. appearing stable for home 2. acute/chronic systolic CHF - overall stable/improved. -appearing compensated now, continue HD management 3. ESRD on HD - appreciate nephrology consult. ongoing HD better vascular access obtained 4. hypothyroidism - TSH 07/2016 was elevated and repeat TSH again elevated. Increased dose to 75mcg 3 days/week and 50mcg 4 days/week. Repeat TSH 6 weeks. 5. pleural effusions -now stable s/p thoracentesis 6. 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 8. a. fib - in NSR on amiodarone. continue to follow 9. DVT proph - anticoagulation -- question of mcc anticoagulation as below but right now seems less favorable. 10. probable acute sinusitis - treated w 7 days of doxy 100 BID. cont zakia BID, mucinex BID, nasal steroid, saline nasal drops prn 11. ? PEs on CTA with negative venous dopplers of legs - also concern on ?? clot on tricuspid valve. -blood cultures have all been negative, afebrile = effectively ruling out infectious cause -repeat echo normal, repeat CT chest clearly no PE (was ?artifact vs real before ) -- therefore ??both were artifact vs w anticoagulation tricuspid clot then went away (this seems less likely) -will be OK to discharge off anticoagulation 12. ? tricuspid valve vegetation - her blood cultures are negative and she has no symptoms of endocarditis. -see above, will be able to discharge off of anticoagulation 13. right-sided infiltrates on CT - with further review, and w CT post thoracentesis, appears to have been atelectasis 14. hyponatremia - 2nd to CKD/ESRD - improved. 15. anemia 2nd to ESRD/CKD - H/H stable; management per nephrology improving. stable for home Total Time Spent: Greater than 30 minutes This includes examination of the patient, discharge planning, medication reconciliation, and communication with other providers. Discharge Instructions Please refer to the electronic Patient Visit Report (Discharge Instructions) for additional information. Additional Copies To Ramos Solorzano M.D.; Leonidas Guardado M.D.
[2016-12-11] MEDS ORDERED: CALC500C3 PO (08:04)
== END 2016-10-13 17:02 | disposition home or self-care (01) | DRG 291 ==
LOC: ENRESERVTM → ENRESERVDT → C.EDB 16:28 → C.2T 21:09 → C.MS4W 10-07 14:48 → CANBEDREQ 10-07 14:48 → C.MS4W 10-07 15:02
PROVIDERS: ADMIT Hospitalist; ATTEND Family Medicine
PROC: 0W9900Z Drainage of Right Pleural Cavity with Drainage Device, Open Approach (ICD-10-PCS; principal; 2016-10-09)
PROC: 03H833Z Insertion of Infusion Device into Left Brachial Artery, Percutaneous Approach (ICD-10-PCS; 2016-10-12)
DX: I50.43 Acute on chronic combined systolic (congestive) and diastolic (congestive) heart failure (principal); N18.6 End stage renal disease; N25.81 Secondary hyperparathyroidism of renal origin; E87.1 Hypo-osmolality and hyponatremia; J90 Pleural effusion, not elsewhere classified; I42.9 Cardiomyopathy, unspecified; D63.1 Anemia in chronic kidney disease; J01.90 Acute sinusitis, unspecified; I10 Essential (primary) hypertension; E03.9 Hypothyroidism, unspecified; K21.9 Gastro-esophageal reflux disease without esophagitis; I48.0 Paroxysmal atrial fibrillation; Z85.89 Personal history of malignant neoplasm of other organs and systems; Z92.3 Personal history of irradiation; Z79.82 Long term (current) use of aspirin; Z99.2 Dependence on renal dialysis

== ENCOUNTER → 2016-11-20 | Outpatient (CLI) | payer OTHER ==
[~2016-11-20] MED LIST changes: -B-COCAP20 PO; +B-COCAP21 PO; -CALC500C3; +CALC500C3 PO; +CARV12.52 PO; +EPGI40M INJ; +LEVO50TA PO; +LEVO75TA PO; +SYN75 PO
[2016-11-20 14:49] LABS: HEMATOCRIT 34.8 % (37-47)
[2016-11-20 15:23] LABS: THYROID STIMULATING HORMONE 5.59 uIu/ml (0.300-4.500)
== END | disposition home or self-care (01) ==
LOC: C.LABBC 10:27
PROVIDERS: ATTEND Internal Medicine
DX: I10 Essential (primary) hypertension (principal); I42.9 Cardiomyopathy, unspecified; I35.0 Nonrheumatic aortic (valve) stenosis; R07.9 Chest pain, unspecified; I48.0 Paroxysmal atrial fibrillation; I50.22 Chronic systolic (congestive) heart failure; D63.8 Anemia in other chronic diseases classified elsewhere; Z87.448 Personal history of other diseases of urinary system

== ENCOUNTER → 2016-12-11 | Day surgery (SDC) | payer OTHER ==
[~2016-12-11] VITALS: Ht 171.5 cm; Wt 64.1 kg
[~2016-12-11] MED LIST changes: +LIDOCAINE HCL 1% 20 ML VIAL ONE; +LIDOCAINE HCL 1% 20 ML VIAL SQ ONE
--- NOTE | 2016-12-11 08:01 | History and Physical ---
History & Physical Date of Service Dec 11, 2016. History & Physical Functioning left forearm fistula History of Present Illness The patient is a 81 year old female with multiple medical problems, She had a left forearm fistula placed. She had ligation of side branches and service captain. It is now running well. Denies BOOGIE, fever, chills, chest pain, abd pain, N/V, rest pain, claudication, other complaints. Allergies Amoxicillin (Verified Allergy, Severe, UNKOWN, 02/19/16) Clavulanic Acid (Verified Allergy, Severe, UNKOWN, 02/19/16) Nortriptyline (Verified Allergy, Severe, UNKNOWN, 02/19/16) Aloe (Verified Allergy, Intermediate, rash, 03/09/16) Amitriptyline (Verified Allergy, Unknown, unknown, 02/19/16) Amlodipine (Verified Allergy, Unknown, UNKNOWN, 03/09/16) Atorvastatin (Verified Allergy, Unknown, 02/19/16) Azathioprine (Verified Allergy, Unknown, 02/19/16) Barbiturates (Verified Allergy, Unknown, TAKES DARVOCET AT HOME, 02/19/16) Beta Adrenergic Blockers (Verified Allergy, Unknown, -, 02/19/16) Butalbital (Verified Allergy, Unknown, TAKES DARVOCET AT HOME, 02/19/16) Cefaclor (Verified Allergy, Unknown, RECEIVED ANCEF PREOP IN OR (08/05/12) , 02/19/16) Cefuroxime (Unverified Allergy, Unknown, UNKNOWN, 03/08/16) Cephalosporins (Verified Allergy, Unknown, 02/19/16) Chlorpheniramine (Verified Allergy, Unknown, 02/19/16) Cholestyramine (Verified Allergy, Unknown, 02/19/16) Ciprofloxacin (Verified Allergy, Unknown, redness and swelling, 02/19/16) Clonidine (Verified Allergy, Unknown, unknown, 02/19/16) Codeine (Verified Allergy, Unknown, TAKES DARVOCET AT HOME, 02/19/16) Dextromethorphan (Verified Allergy, Unknown, TAKES DARVOCET AT HOME, ) Diltiazem (Verified Allergy, Unknown, 02/19/16) Escitalopram (Verified Allergy, Unknown, 02/19/16) Estrogens (Verified Allergy, Unknown, 02/19/16) Felodipine (Verified Allergy, Unknown, 02/19/16) Ferrous Sulfate (Verified Allergy, Unknown, UNKNOWN, 03/09/16) Hydralazine (Verified Allergy, Unknown, unknown, 02/19/16) Hydrochlorothiazide (Verified Allergy, Unknown, 02/19/16) Hydrocodone (Verified Allergy, Unknown, TAKES DARVOCET AT HOME, 02/19/16) Hydrocortisone (Verified Allergy, Unknown, unknown, 02/19/16) Hydromorphone (Verified Allergy, Unknown, unknown, 02/19/16) Ibuprofen (Verified Allergy, Unknown, TAKES EC ASA AT HOME, 02/19/16) Indapamide (Verified Allergy, Unknown, 02/19/16) Ipratropium (Verified Allergy, Unknown, UNKNOWN, 03/09/16) Isosorbide (Verified Allergy, Unknown, UNKNOWN, 03/09/16) Ketoconazole (Verified Allergy, Unknown, unknown, 02/19/16) Lisinopril (Verified Allergy, Unknown, 02/19/16) Losartan (Verified Allergy, Unknown, 02/19/16) Mesalamine (Verified Allergy, Unknown, 02/19/16) Methyltestosterone (Verified Allergy, Unknown, 02/19/16) Metoprolol (Verified Allergy, Unknown, 02/19/16) NSAIDs (Verified Allergy, Unknown, though takes ecotrin at home, 03/09/16) Olsalazine (Verified Allergy, Unknown, 02/19/16) Phenylpropanolamine (Verified Allergy, Unknown, 02/19/16) Pilocarpine (Verified Allergy, Unknown, UNKNOWN, 03/09/16) Progestins (Verified Allergy, Unknown, 02/19/16) Propranolol (Verified Allergy, Unknown, UNKNOWN, 03/09/16) Propylene Glycol (Verified Allergy, Unknown, 02/19/16) Rabeprazole (Verified Allergy, Unknown, 02/19/16) Sertraline (Verified Allergy, Unknown, UNKNOWN, 03/09/16) Simvastatin (Verified Allergy, Unknown, 02/19/16) Sulfa Antibiotics (Verified Allergy, Unknown, UNKNOWN, 03/09/16) Sulfacetamide (Verified Allergy, Unknown, 02/19/16) Sulfur (Verified Allergy, Unknown, 02/19/16) Terazosin (Verified Allergy, Unknown, 02/19/16) Terfenadine (Verified Allergy, Unknown, 02/19/16) Torsemide (Unverified Allergy, Unknown, UNKNOWN, 03/08/16) Tramadol (Verified Allergy, Unknown, unknown, 02/19/16) Triamterene (Verified Allergy, Unknown, 02/19/16) Verapamil (Verified Allergy, Unknown, 02/19/16) Calcium Acetate (Verified Adverse Reaction, Mild, CONSTIPATION, 03/09/16) Uncoded Allergies: XANTHINE (Allergy, Unknown, TAKES DARVOCET AT HOME, 04/10/14) PT CLAIMS SHE CAN TOLERATE CAFFEINE Home Medications Scheduled Acetaminophen (Tylenol), 500 MG PO PRN Amiodarone Hcl (Cordarone), 200 MG PO DAILY Amlodipine Besylate (Norvasc), 2.5 MG PO DAILY Bumetanide (Bumetanide), 2 TABS PO BID Carvedilol (Coreg), 6.25 MG PO BID Cholecalciferol (Vitamin D3), 1 CAP PO DAILY Epoetin Jose R (Procrit), 40,000 UNIT INJ EVERY OTHER WEEK Levothyroxine Sodium (Synthroid), 25 MCG PO QAM Lorazepam (Ativan), 1 MG PO BID Scheduled PRN Pzfxcpz-Xsufmhwldmygr-Nlgmrpta (Migraine Relief), 1 TAB PO UD PRN for MATTHEW Problem List Medical Problems: (1) Acute on chronic kidney failure (2) Anemia (3) Chest pain (4) Dysphagia (5) Hypertension (6) Secondary hyperparathyroidism of renal origin (7) Squamous cell carcinoma (8) Tonsil cancer Surgical / Medical History Hx Cardiac Surgery: No Hx Abdominal Surgery: Yes (cholecystectomy, appendectomy, spleenectomy, pancreas cyst, hernia) Hx Cancer Surgery: No Hx Thoracic Surgery: No Hx Orthopedic: Yes (BUNIONECTOMY) Hx Urinary Tract Surgery: No Past Medical/Surgical History: Hypertension, Kidney Disease Family History Cancer Gallbladder disease Hypertension Social History Smoking Status: Never Smoker Hx Tobacco Use In Past Year?: No Hx Alcohol Use - Type & Amnt: No Hx Substance Use -Type & Amnt: No Review of Systems Constitutional: + malaise, No chills, No fever Skin: No change in color Eyes: No visual changes ENMT: No sore throat Respiratory: no complaints Cardiovascular: + edema, No chest pain, No intermittent claudication, No palpitations, No syncope Gastrointestinal: No abdominal pain, No nausea, No vomiting Genitourinary - Female: No dysuria, No hematuria Neurologic: No headache, No numbness, No weakness Physical Exam Constitutional: General Apperance: well-nourished, well-developed, too thin Level of Distress: NAD, chronically ill Psychiatric: Mental Status: active & alert, normal mood, normal affect Orientation: oriented except where noted, to time, to place, to person Memory: recent memory normal, remote memory normal Head: normocephalic, atraumatic Eyes: EOM: EOMI ENMT: normal ENT inspection, hearing grossly normal Neck: supple, trachea midline Lungs: Respiratory effort: no dyspnea Auscultation: no wheezing, no rhonchi, Cardiovascular: Apical Impulse: not displaced Heart Auscultation: RRR, no rubs, no gallops, murmur Peripheral Pulses: Pulses: full and equal, in all extremities except if noted Bruits: none appreciated Carotid Pulse: normal on the left, normal on the right Brachial Pulses: normal on the left, normal on the right Radial Pulse: normal on the left, normal on the right Femoral Pulse: normal on the left, normal on the right Posterior Tibialis Pulse: decreased on the left, decreased on the right Dorsalis Pedis Pulse: decreased on the left, decreased on the right Abdomen: Bowel Sounds: normal Inspection & Palpation: soft, non-distended, no tenderness, guarding & rebound Musculoskeletal: normal strength (5/5 throughout), normal tone Extremities: Upper Right: no cyanosis, no edema, no varicosities Upper Left: no cyanosis, no edema, no varicosities Lower Right: no cyanosis, no varicosities, edema (trace) Lower Left: no cyanosis, no varicosities, no palpable cord, edema (trace). fistula with good thrill Neurologic: Cranial Nerves: grossly intact Sensation: grossly intact A&P: Vascular Con v2 Assessment and Plan ASSESSMENT and PLAN: Imp: Functioning fistula Plan: Patient is admitted for removal of her permcath. I have discussed the risks options and benefits of the procedure with the patient. The patient understands the risks options and benefits and agrees to the procedure.
[2016-12-11 08:10] VITALS: BP 127/68; PULSE 64; TEMP 36.4; O2SAT 99; Ht 171.5 cm; Wt 64.1 kg
--- NOTE | 2016-12-11 09:36 | [facility] Post Operative Brief Note ---
Immediate Operative Summary Operative Date Dec 11, 2016. Pre-Operative Diagnosis Functioning Fistula Post-Operative Diagnosis Same Procedure(s) Performed Removal of Perm Catheter Surgeon Dr. Alonso Engineering Designer Surgeon(s) Dr. Rosenda Pacheco Estimated Blood Loss 1 Findings cuff and catheter removed Specimens A: Explant Perm Catheter Anesthesia Local Complication(s) None Disposition
--- NOTE | 2016-12-11 09:37 | Discharge Instructions ---
Discharge Instructions Date of Service Dec 11, 2016. Visit Reason for Visit: End Stage Renal Disease, Functioning Fistula Discharge Discharge Diagnosis / Problem: Functioning fistula Discharge Goals Goal(s): Therapeutic intervention Activity Recommendations Activity Limitations: resume your previous activity Shower/Bathe: tomorrow Anesthesia . Post Anesthesia Instructions: If you have had General Anesthesia or IV Sedation: * Do not drive today. * Resume driving when surgeon permits. * Do not make important decisions or sign legal documents today. * Call surgeon for: 1. Temperature elevations greater than 101 degrees F. 2. Uncontrollable pain. 3. Excessive bleeding. 4. Persistent nausea and vomiting. 5. Medication intolerance (nausea, vomiting or rash). * For nausea and vomiting use only clear liquids such as: tea, soda, bouillon until nausea subsides, then gradually increase diet as tolerated. * If you have any concerns or questions, call your surgeon's office. If physician is unavailable and it is an emergency, call 911 or go to the nearest emergency room. . Instructions / Follow-Up Instructions / Follow-Up Call [phone] with any questions or concerns. SPECIAL CARE INSTRUCTIONS: Medications: * Continue to take your medications as directed. If you have been given a prescription for Plavix, please fill it immediately and take as directed. Incision Care: * Your puncture site may have some bruising and minor swelling for about one week. * You will have a small dressing covering your puncture site. You may remove the dressing after 24 hours and shower. You may let the warm soapy water run over it, but be sure to dry the puncture site well and keep it dry. * DO NOT IMMERSE THE INCISION IN A TUB/POOL/etc. UNTIL HEALED. * Puncture sites should be kept covered with a band-aid until it begins to heal. Restrictions: * Depending on whether you leg or arm was punctured to access the arteries, you will be required to lay flat, hold your arm still, or both, for about 4 hours after the procedure to prevent bleeding. * Limit your activity for the first 48 hours. You may walk and go up and down steps. Avoid excessive bending or movement at the puncture site. Possible Complications: * Excessive Swelling - after blood flow is improved you may notice increased swelling in the lower legs. This is a normal response. This usually depends on the amount of blockages in the leg, how long they have been there prior to your procedure and how much blood flow was restored. Elevating your legs will help to improve this. Please notify our office ([phone] ) if the swelling does not go away after lying in bed overnight. * Infection/Drainage/Bleeding - Drainage or bleeding from the puncture site should be minimal. If you have excessive bleeding or drainage, call our office ([phone]) right away. * Pain - You may experience some mild pain or soreness at your puncture site. If your pain does not improve, please contact our office ([phone]). Call your doctor and seek emergent treatment if you develop: * Temperature above 101 degrees * Any fever or chills * Any redness or purulent drainage from the puncture site * Any new dusky/blue colored toes or feet with coolness or sharp or aching pain. SKIN IRRITATION: * You may experience some redness and/or swelling in the area where radiation was administered. If any skin irritation occurs, please contact your family physician. FOLLOW UP VISIT: Keep any scheduled doctor appointments. Diet Recommendations Recommended Home Diet: resume previous diet Procedures Procedures Performed: Removal of Perm Catheter Pending Studies Studies pending at discharge: no Medical Emergencies . Who to Call and When: Medical Emergencies: If at any time you feel your situation is an emergency, please call 911 immediately. . Non-Emergent Contact Non-Emergency issues call your: Surgeon . . "Provider Documentation" section prepared by Duke Alonso. .
[2016-12-11 09:45] VITALS: BP 160/60; PULSE 69; TEMP 36.7; O2SAT 97
--- NOTE | 2016-12-11 09:51 | DIAGNOSTIC IMAGING REPORT ---
DATE OF PROCEDURE: 12/11/2016 PREOPERATIVE DIAGNOSIS: Endstage renal disease with functioning left arm arteriovenous fistula, no longer requiring PermCath. POSTOPERATIVE DIAGNOSIS: Endstage renal disease with functioning left arm arteriovenous fistula, no longer requiring PermCath. PROCEDURE: Removal of tunneled right IJ PermCath. SURGEON: Dr. Duke Alonso INSOLE ROUNDER: Dr. Rosenda Pacheco ANESTHESIA: Local. ESTIMATED BLOOD LOSS: 1 mL COMPLICATIONS: None. CONDITION: Stable. INDICATIONS: Cherri Roth is a 81-year-old woman with end-stage renal disease, on hemodialysis. She currently dialyzes through her left arm AV fistula which is functioning well. She previously underwent placement of a right tunneled IJ PermCath. As her fistula is functioning, she no longer requires the PermCath. For this reason, she was recommended to undergo PermCath removal. The risks, benefits and alternatives were discussed with the patient and she consented to the procedure. DESCRIPTION OF PROCEDURE: The patient was taken to the operating room and placed in supine position. Her right neck and chest were prepped and draped in the usual sterile fashion. A safety timeout was performed, and the patient and procedure was correctly identified. Local anesthesia was used to anesthetize the skin along the tract of the PermCath. Blunt dissection was used to identify the cuff. The fiber sheath surrounding the cuff was incised with an 11 blade scalpel. Catheter was removed without difficulty and manual pressure was held for approximately 5 minutes with good hemostasis. A sterile dressing was applied. The patient tolerated the procedure well and there were no immediate complications. Dr. Duke Alonso was present for the entire procedure. I, Dr. Alonso was present and scrubed for the entire procedure. [facility]
[2016-12-11 10:15] VITALS: BP 136/63; PULSE 64; TEMP 37.1; O2SAT 98
== END | disposition home or self-care (01) ==
LOC: C.ACU 07:18
PROVIDERS: ATTEND Surgery Vascular Surgery
DX: Z45.2 Encounter for adjustment and management of vascular access device (principal); N18.6 End stage renal disease; I12.0 Hypertensive chronic kidney disease with stage 5 chronic kidney disease or end stage renal disease; Z90.49 Acquired absence of other specified parts of digestive tract; Z90.89 Acquired absence of other organs; Z80.9 Family history of malignant neoplasm, unspecified; Z82.49 Family history of ischemic heart disease and other diseases of the circulatory system

== ENCOUNTER → 2016-12-25 | Outpatient (CLI) | payer OTHER ==
[~2016-12-25] MED LIST changes: -ASPITAB44 PO; -CALC667C4 PO; -EPGI40M INJ; -LIDOCAINE HCL 1% 20 ML VIAL ONE; -LIDOCAINE HCL 1% 20 ML VIAL SQ ONE
[2016-12-25 13:05] VITALS: BP 106/51; PULSE 50; TEMP 36.8; O2SAT 96
--- NOTE | 2016-12-25 15:50 | Radiation Oncology Follow-Up ---
Radiation Oncology Follow-Up Date of Visit Dec 25, 2016. 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 Radiation completed 01/10/2014 received 7200 cGy Last Edited By: Jesika Medina on Dec 23, 2014 15:41 Interim History She has been doing well over this past year. 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 She uses Biotene for the xerostomia that states this causes a burning sensation. She is eating a regular diet without difficulty. She has been seen by ENT and had an CFA examination in November. There was no signs of recurrence. She has had multiple health issues. She is on dialysis 3 days a week. Allergies Coded Allergies: Amoxicillin (Verified Allergy, Severe, UNKOWN, 10/03/16) Clavulanic Acid (Verified Allergy, Severe, UNKOWN, 10/03/16) Nortriptyline (Verified Allergy, Severe, UNKNOWN, 10/03/16) Aloe (Verified Allergy, Intermediate, rash, 10/03/16) Amitriptyline (Verified Allergy, Unknown, unknown, 10/03/16) Amlodipine (Verified Allergy, Unknown, UNKNOWN, 10/03/16) Atorvastatin (Verified Allergy, Unknown, 10/03/16) Azathioprine (Verified Allergy, Unknown, 10/03/16) Barbiturates (Verified Allergy, Unknown, TAKES DARVOCET AT HOME, 10/03/16) Beta Adrenergic Blockers (Verified Allergy, Unknown, -, 10/03/16) Butalbital (Verified Allergy, Unknown, TAKES DARVOCET AT HOME, 10/03/16) Cefaclor (Verified Allergy, Unknown, RECEIVED ANCEF PREOP IN OR (08/05/12) , 10/03/16) Cefuroxime (Unverified Allergy, Unknown, UNKNOWN, 10/03/16) Cephalosporins (Verified Allergy, Unknown, 10/03/16) Chlorpheniramine (Verified Allergy, Unknown, 10/03/16) Cholestyramine (Verified Allergy, Unknown, 10/03/16) Ciprofloxacin (Verified Allergy, Unknown, redness and swelling, 10/03/16) Clonidine (Verified Allergy, Unknown, unknown, 10/03/16) Codeine (Verified Allergy, Unknown, TAKES DARVOCET AT HOME, 10/03/16) Dextromethorphan (Verified Allergy, Unknown, TAKES DARVOCET AT HOME, ) Diltiazem (Verified Allergy, Unknown, 10/03/16) Escitalopram (Verified Allergy, Unknown, 10/03/16) Estrogens (Verified Allergy, Unknown, 10/03/16) Felodipine (Verified Allergy, Unknown, 10/03/16) Ferrous Sulfate (Verified Allergy, Unknown, UNKNOWN, 10/03/16) Hydralazine (Verified Allergy, Unknown, unknown, 10/03/16) Hydrochlorothiazide (Verified Allergy, Unknown, 10/03/16) Hydrocodone (Verified Allergy, Unknown, TAKES DARVOCET AT HOME, 10/03/16) Hydrocortisone (Verified Allergy, Unknown, unknown, 10/03/16) Hydromorphone (Verified Allergy, Unknown, unknown, 10/03/16) Ibuprofen (Verified Allergy, Unknown, TAKES EC ASA AT HOME, 10/03/16) Indapamide (Verified Allergy, Unknown, 10/03/16) Ipratropium (Verified Allergy, Unknown, UNKNOWN, 10/03/16) Isosorbide Nitrate (Verified Allergy, Unknown, UNKNOWN, 10/03/16) Ketoconazole (Verified Allergy, Unknown, unknown, 10/03/16) Lisinopril (Verified Allergy, Unknown, 10/03/16) Losartan (Verified Allergy, Unknown, 10/03/16) Mesalamine (Verified Allergy, Unknown, 10/03/16) Methyltestosterone (Verified Allergy, Unknown, 10/03/16) Metoprolol (Verified Allergy, Unknown, 10/03/16) NSAIDs (Verified Allergy, Unknown, though takes ecotrin at home, 10/03/16) Olsalazine (Verified Allergy, Unknown, 10/03/16) Phenylpropanolamine (Verified Allergy, Unknown, 10/03/16) Pilocarpine (Verified Allergy, Unknown, UNKNOWN, 10/03/16) Progestins (Verified Allergy, Unknown, 10/03/16) Propranolol (Verified Allergy, Unknown, UNKNOWN, 10/03/16) Propylene Glycol (Verified Allergy, Unknown, 10/03/16) Rabeprazole (Verified Allergy, Unknown, 10/03/16) Sertraline (Verified Allergy, Unknown, UNKNOWN, 10/03/16) Simvastatin (Verified Allergy, Unknown, 10/03/16) Sulfa Antibiotics (Verified Allergy, Unknown, UNKNOWN, 10/03/16) Sulfacetamide (Verified Allergy, Unknown, 10/03/16) Sulfur (Verified Allergy, Unknown, 10/03/16) Terazosin (Verified Allergy, Unknown, 10/03/16) Terfenadine (Verified Allergy, Unknown, 10/03/16) Torsemide (Unverified Allergy, Unknown, UNKNOWN, 10/03/16) Tramadol (Verified Allergy, Unknown, unknown, 10/03/16) Triamterene (Verified Allergy, Unknown, 10/03/16) Verapamil (Verified Allergy, Unknown, 10/03/16) Calcium Acetate (Verified Adverse Reaction, Mild, CONSTIPATION, 10/03/16) Uncoded Allergies: XANTHINE (Allergy, Unknown, TAKES DARVOCET AT HOME, 04/10/14) PT CLAIMS SHE CAN TOLERATE CAFFEINE Home Medications Scheduled Amiodarone Hcl (Cordarone), 200 MG PO QAM Aspirin (Aspirin 81), 81 MG PO QAM B-Complex W/ C & Folic Acid (Mccone Caps), 1 CAP PO QAM Calcium Carbonate (Tums), 1,000 MG PO TIDM Carvedilol (Carvedilol), 18.75 MG PO BID Cholecalciferol (Vitamin D3), 1 CAP PO QAM Docusate Sodium (Colace), 1 CAP PO QPM Levothyroxine Sodium (Synthroid), 50 MCG PO SuMoWeFr@0600 Levothyroxine Sodium (Synthroid), 75 MCG PO TuThSa@0600 Scheduled PRN Acetaminophen (Tylenol), 500 MG PO DIRECTED PRN for Pain Lorazepam (Ativan), 1 MG PO TID PRN for Anxiety/Agitation Review of Systems Gastrointestinal: Symptoms: WNL GI Comments: "occ constipation " Oral: Symptoms: Scant Saliva/Dry Mouth Other Oral Symptoms: " occ difficulty swallowing " Respiratory: Symptoms: WNL Respiratory Comments: "and happens when i lay down ' Sputum Character: breathing is labored and rapid, with wheezing at times Other Respiratory: " short, rapid breathing when walking, tries to sleep sitting up Urinary: Symptoms: Frequency Comments: "pees a little, on dialysis 3 times a week " Skin: Symptoms: No Problems Other Skin Symptoms: " dry skin " Physical Exam Vital Signs Date Time Temp Pulse Resp B/P (MAP) Pulse Ox O2 Delivery O2 Flow Rate FiO2 12/25/16 13:05 36.8 50 16 106/51 96 Pain: Pain Onset: started when having radiation treatments Pain Duration: intermet Side: Bilateral Pain Location: ear Patient Pain Scale: 0 - 10 Initial Pain Intensity: 0.0 Pain Description: Sharp Additional Comments: can go as high as number 8 Fatigue: None General Appearance: no apparent distress Eyes: normal inspection, EOMI ENT: normal ENT inspection, hearing grossly normal, TMs normal, pharynx normal Neck: no adenopathy, thyroid normal, no JVD Respiratory/Chest: lungs clear, no respiratory distress, no accessory muscle use Cardiovascular: regular rate, rhythm, no gallop, + systolic murmur (3/6 systolic murmur) Neurologic/Psychiatric: no motor/sensory deficits, alert, normal mood/affect Skin: warm/dry Lymphatic: no adenopathy Laboratory Studies Test 10/03/16 17:10 10/03/16 17:56 10/03/16 18:50 10/04/16 05:15 Immature Granulocyte % (Auto) 0.3 % 0.5 % White Blood Count 6.31 K/uL (4.8-10.8) 5.71 K/uL (4.8-10.8) Red Blood Count 3.81 M/uL (4.2-5.4) 3.49 M/uL (4.2-5.4) Hemoglobin 11.1 g/dL (12.0-16.0) 10.0 g/dL (12.0-16.0) Hematocrit 33.4 % (37-47) 30.7 % (37-47) Mean Corpuscular Volume 87.7 fL (80-100) 88.0 fL (80-100) Mean Corpuscular Hemoglobin 29.1 pg (25-34) 28.7 pg (25-34) Mean Corpuscular Hemoglobin Concent 33.2 g/dl (32-36) 32.6 g/dl (32-36) Platelet Count 433 K/uL (130-400) 414 K/uL (130-400) Mean Platelet Volume 10.0 fL (7.4-10.4) 9.9 fL (7.4-10.4) Neutrophils (%) (Auto) 64.7 % 57.3 % Lymphocytes (%) (Auto) 14.7 % 18.7 % Monocytes (%) (Auto) 18.9 % 20.5 % Eosinophils (%) (Auto) 1.1 % 2.5 % Basophils (%) (Auto) 0.3 % 0.5 % Neutrophils # (Auto) 4.08 K/uL (1.4-6.5) 3.27 K/uL (1.4-6.5) Lymphocytes # (Auto) 0.93 K/uL (1.2-3.4) 1.07 K/uL (1.2-3.4) Monocytes # (Auto) 1.19 K/uL (0.11-0.59) 1.17 K/uL (0.11-0.59) Eosinophils # (Auto) 0.07 K/uL (0-0.5) 0.14 K/uL (0-0.5) Basophils # (Auto) 0.02 K/uL (0-0.2) 0.03 K/uL (0-0.2) Immature Granulocyte # (Auto) 0.02 K/uL (0.00-0.02) 0.03 K/uL (0.00-0.02) Total Bilirubin 0.6 mg/dl (0.2-1) Direct Bilirubin 0.1 mg/dl (0-0.2) Aspartate Amino Transferase (AST) 15 U/L (15-37) Alanine Aminotransferase (ALT) 22 U/L (12-78) Alkaline Phosphatase 71 U/L (45-117) Total Protein 7.2 gm/dl (6.4-8.2) Albumin 3.3 gm/dl (3.4-5.0) POC Troponin I 0.010 ng/ml (0-0.045) CZ-Kpp-B-Type Natriuretic Peptide > 90639 pg/ml (0-1800) Prothrombin Time 12.1 SECONDS (9.0-12.0) 12.2 SECONDS (9.0-12.0) Prothrombin Time INR 1.1 (0.9-1.1) 1.1 (0.9-1.1) Magnesium Level 2.6 mg/dl (1.8-2.4) Total Creatine Kinase 38 U/L (26-192) Creatine Kinase MB 1.1 ng/ml (0.5-3.6) Creatine Kinase MB Ratio 2.9 (0-3.0) Troponin I 0.023 ng/ml (0-0.045) Test 10/04/16 11:10 10/04/16 13:15 10/05/16 00:05 10/05/16 05:10 Qonah-7-Mxirhdbne 0.5 G/DL (0.2-0.3) Monrv-0-Auvkobyar 1.0 G/DL (0.5-0.9) Dtyk-3-Hhekuakl 0.3 G/DL (0.4-0.6) Njdo-2-Hbaoeazm 0.3 G/DL (0.2-0.5) Gamma Globulins 0.7 G/DL (0.8-1.7) Prot Electrophor Monoclonal Peak 3 G/DL (NOT DETECTED) Serum Monoclonal Protein G/DL (NOT DETECTED) Serum Monoclonal Protein (2) G/DL (NOT DETECTED) Protein Electrophoresis Interpret SEE NOTE Serum Immunofixation SEE NOTE Total Protein (MAJO) 6.1 G/DL (6.2-8.3) Albumin (MAJO) 3.4 G/DL (3.8-4.8) Total Creatine Kinase 40 U/L (26-192) Creatine Kinase MB 1.2 ng/ml (0.5-3.6) Creatine Kinase MB Ratio 3.0 (0-3.0) Troponin I 0.024 ng/ml (0-0.045) Hepatitis B Surface Antigen NEG (NEG) Thyroid Stimulating Hormone (TSH) 5.200 uIu/ml (0.300-4.500) Test 10/09/16 15:02 10/09/16 15:25 10/10/16 07:25 10/12/16 06:58 Pleural Fluid Source RIGHT LUNG Pleural Fluid Color STRAW Pleural Fluid Appearance CLEAR Pleural Fluid WBC 200 /uL Pleural Fluid RBC < 3000 /uL Pleural Fluid Polynuclear WBCs % 23.5 % Pleural Fluid Mononuclear WBCs % 76.5 % Pleural Fluid Total Protein 2.7 g/dl Pleural Fluid LDH 67 IU Pleural Fluid Glucose 127 mg/dl Pleural Fluid Amylase 16 U/L Pleural Fluid Cholesterol 56 mg/dL Lactate Dehydrogenase 163 U/L (84-246) White Blood Count 8.87 K/uL (4.8-10.8) 8.22 K/uL (4.8-10.8) Red Blood Count 3.59 M/uL (4.2-5.4) 3.55 M/uL (4.2-5.4) Mean Corpuscular Volume 90.0 fL (80-100) 89.6 fL (80-100) Mean Corpuscular Hemoglobin 30.1 pg (25-34) 30.4 pg (25-34) Mean Corpuscular Hemoglobin Concent 33.4 g/dl (32-36) 34.0 g/dl (32-36) RDW Standard Deviation 62.0 fL (36.4-46.3) 61.6 fL (36.4-46.3) RDW Coefficient of Variation 18.9 % (11.5-14.5) 19.0 % (11.5-14.5) Platelet Count 312 K/uL (130-400) 300 K/uL (130-400) Mean Platelet Volume 9.5 fL (7.4-10.4) 9.8 fL (7.4-10.4) Nucleated RBC Absolute Count (auto) 0.08 K/uL (0-0) 0.07 K/uL (0-0) Nucleated Red Blood Cells % 0.9 % 0.8 % Sodium Level 128 mmol/L (136-145) Potassium Level 4.5 mmol/L (3.5-5.1) Chloride Level 94 mmol/L (98-107) Carbon Dioxide Level 24 mmol/L (21-32) Anion Gap 10.0 mmol/L (3-11) Blood Urea Nitrogen 22 mg/dl (7-18) Creatinine 4.80 mg/dl (0.60-1.20) Est Creatinine Clear Calc Drug Dose 9.6 ml/min Estimated GFR () 9.3 Estimated GFR (Non- 8.0 BUN/Creatinine Ratio 4.6 (10-20) Random Glucose 104 mg/dl (70-99) Calcium Level 8.8 mg/dl (8.5-10.1) Hemoglobin 10.8 g/dL (12.0-16.0) Hematocrit 31.8 % (37-47) PTT 65.3 SECONDS (21.0-31.0) Partial Thromboplastin Ratio 2.5 Test 10/12/16 12:25 10/13/16 07:45 11/20/16 10:32 Sodium Level 126 mmol/L (136-145) Potassium Level 4.6 mmol/L (3.5-5.1) Chloride Level 89 mmol/L (98-107) Carbon Dioxide Level 24 mmol/L (21-32) Anion Gap 13.0 mmol/L (3-11) Blood Urea Nitrogen 26 mg/dl (7-18) Creatinine 5.00 mg/dl (0.60-1.20) Est Creatinine Clear Calc Drug Dose 9.0 ml/min Estimated GFR () 8.9 Estimated GFR (Non- 7.6 BUN/Creatinine Ratio 5.3 (10-20) Random Glucose 114 mg/dl (70-99) Calcium Level 9.0 mg/dl (8.5-10.1) PTT 60.5 SECONDS (21.0-31.0) Partial Thromboplastin Ratio 2.3 Hemoglobin 11.2 g/dL (12.0-16.0) Hematocrit 34.8 % (37-47) Aspartate Amino Transferase (AST) 8 U/L (15-37) Alanine Aminotransferase (ALT) 13 U/L (12-78) Thyroid Stimulating Hormone (TSH) 5.590 uIu/ml (0.300-4.500) Assessment & Plan Plan: Continue regular follow-up with ENT. Continue follow-up with her dentist. We asked her to return to our office in 1 year. She may call if she has any questions or concerns in the interim. TSH is followed by her family physician and she is on Synthroid. Total Time In Follow-Up I spent 20 minutes speaking to the patient performing examination. I spent 15 minutes reviewing information in completing this note. Copy To Sean Cooper MD; Jose Guardado M.D.
== END | disposition home or self-care (01) ==
LOC: C.ONC 12:50
PROVIDERS: ATTEND Physician Assistant Medical
DX: Z08 Encounter for follow-up examination after completed treatment for malignant neoplasm (principal); Z92.3 Personal history of irradiation; Z85.89 Personal history of malignant neoplasm of other organs and systems

== ENCOUNTER → 2017-01-09 | Outpatient (CLI) | payer OTHER | END | disposition home or self-care (01) | LOC: C.PAPS 16:48 | PROVIDERS: ATTEND Obstetrics & Gynecology | DX: N95.0 Postmenopausal bleeding (principal); Z01.419 Encounter for gynecological examination (general) (routine) without abnormal findings ==

== ENCOUNTER → 2017-02-01 | Outpatient (CLI) | payer OTHER ==
[2017-02-01 13:24] LABS: POTASSIUM 4.8 mmol/L (3.5-5.1)
--- NOTE | 2017-02-08 14:15 | CODING QUERY NO DIAGNOSIS ---
TREATMENT RENDERED WITHOUT A DIAGNOSIS To promote full compliance with coding requirements relating to patient care, physician participation is requested in all cases of biomass technician uncertainty. Please assist us with providing a diagnosis/symptom for the test(s) below: A diagnosis/symptom was not documented on your Order. A valid diagnosis/symptom is required to bill all insurances. Please remember that we are unable to code a diagnosis of rule out, probable, possible, questionable, or suspected. Tests that require a diagnosis: * ELECTROLYTES DIAGNOSIS: Provider Signature: Date: Thank you Angelica Melton [employer] Information Management Once completed, please kindly fax back to [phone] For questions please call [phone]
== END | disposition home or self-care (01) ==
LOC: C.LABSPEC 12:44
PROVIDERS: ATTEND Internal Medicine
DX: N18.9 Chronic kidney disease, unspecified (principal)

== ENCOUNTER 2017-02-04 09:26 | Day surgery (SDC) | payer OTHER ==
[~2017-02-04] VITALS: Ht 170.2 cm; Wt 63.0 kg
[~2017-02-04 09:26] MED LIST changes: -CARV12.52 PO; -LEVO50TA PO; -LEVO75TA PO
[2017-02-04] MEDS ORDERED: D5W AND 1/4NSS 1,000 ML IV SCH (09:41)
--- NOTE | 2017-02-04 09:41 | History and Physical ---
History & Physical Date of Service Feb 04, 2017. History & Physical History & Physical ESRD on HD, thrombosed LUE AV graft History of Present Illness The patient is a 81 year old female with multiple medical problems, including ESRD on HD. She had a left upper arm AV graft placed in 10/2016, which was running well until HD last Saturday, when it was unable to be used and appeared to be thrombosed. Denies BOOGIE, fever, chills, chest pain, abd pain, N/V, rest pain, claudication, other complaints. She was advised to undergo thrombectomy. Allergies Amoxicillin (Verified Allergy, Severe, UNKOWN, 02/19/16) Clavulanic Acid (Verified Allergy, Severe, UNKOWN, 02/19/16) Nortriptyline (Verified Allergy, Severe, UNKNOWN, 02/19/16) Aloe (Verified Allergy, Intermediate, rash, 03/09/16) Amitriptyline (Verified Allergy, Unknown, unknown, 02/19/16) Amlodipine (Verified Allergy, Unknown, UNKNOWN, 03/09/16) Atorvastatin (Verified Allergy, Unknown, 02/19/16) Azathioprine (Verified Allergy, Unknown, 02/19/16) Barbiturates (Verified Allergy, Unknown, TAKES DARVOCET AT HOME, 02/19/16) Beta Adrenergic Blockers (Verified Allergy, Unknown, -, 02/19/16) Butalbital (Verified Allergy, Unknown, TAKES DARVOCET AT HOME, 02/19/16) Cefaclor (Verified Allergy, Unknown, RECEIVED ANCEF PREOP IN OR (08/05/12) , 02/19/16) Cefuroxime (Unverified Allergy, Unknown, UNKNOWN, 03/08/16) Cephalosporins (Verified Allergy, Unknown, 02/19/16) Chlorpheniramine (Verified Allergy, Unknown, 02/19/16) Cholestyramine (Verified Allergy, Unknown, 02/19/16) Ciprofloxacin (Verified Allergy, Unknown, redness and swelling, 02/19/16) Clonidine (Verified Allergy, Unknown, unknown, 02/19/16) Codeine (Verified Allergy, Unknown, TAKES DARVOCET AT HOME, 02/19/16) Dextromethorphan (Verified Allergy, Unknown, TAKES DARVOCET AT HOME, ) Diltiazem (Verified Allergy, Unknown, 02/19/16) Escitalopram (Verified Allergy, Unknown, 02/19/16) Estrogens (Verified Allergy, Unknown, 02/19/16) Felodipine (Verified Allergy, Unknown, 02/19/16) Ferrous Sulfate (Verified Allergy, Unknown, UNKNOWN, 03/09/16) Hydralazine (Verified Allergy, Unknown, unknown, 02/19/16) Hydrochlorothiazide (Verified Allergy, Unknown, 02/19/16) Hydrocodone (Verified Allergy, Unknown, TAKES DARVOCET AT HOME, 02/19/16) Hydrocortisone (Verified Allergy, Unknown, unknown, 02/19/16) Hydromorphone (Verified Allergy, Unknown, unknown, 02/19/16) Ibuprofen (Verified Allergy, Unknown, TAKES EC ASA AT HOME, 02/19/16) Indapamide (Verified Allergy, Unknown, 02/19/16) Ipratropium (Verified Allergy, Unknown, UNKNOWN, 03/09/16) Isosorbide (Verified Allergy, Unknown, UNKNOWN, 03/09/16) Ketoconazole (Verified Allergy, Unknown, unknown, 02/19/16) Lisinopril (Verified Allergy, Unknown, 02/19/16) Losartan (Verified Allergy, Unknown, 02/19/16) Mesalamine (Verified Allergy, Unknown, 02/19/16) Methyltestosterone (Verified Allergy, Unknown, 02/19/16) Metoprolol (Verified Allergy, Unknown, 02/19/16) NSAIDs (Verified Allergy, Unknown, though takes ecotrin at home, 03/09/16) Olsalazine (Verified Allergy, Unknown, 02/19/16) Phenylpropanolamine (Verified Allergy, Unknown, 02/19/16) Pilocarpine (Verified Allergy, Unknown, UNKNOWN, 03/09/16) Progestins (Verified Allergy, Unknown, 02/19/16) Propranolol (Verified Allergy, Unknown, UNKNOWN, 03/09/16) Propylene Glycol (Verified Allergy, Unknown, 02/19/16) Rabeprazole (Verified Allergy, Unknown, 02/19/16) Sertraline (Verified Allergy, Unknown, UNKNOWN, 03/09/16) Simvastatin (Verified Allergy, Unknown, 02/19/16) Sulfa Antibiotics (Verified Allergy, Unknown, UNKNOWN, 03/09/16) Sulfacetamide (Verified Allergy, Unknown, 02/19/16) Sulfur (Verified Allergy, Unknown, 02/19/16) Terazosin (Verified Allergy, Unknown, 02/19/16) Terfenadine (Verified Allergy, Unknown, 02/19/16) Torsemide (Unverified Allergy, Unknown, UNKNOWN, 03/08/16) Tramadol (Verified Allergy, Unknown, unknown, 02/19/16) Triamterene (Verified Allergy, Unknown, 02/19/16) Verapamil (Verified Allergy, Unknown, 02/19/16) Calcium Acetate (Verified Adverse Reaction, Mild, CONSTIPATION, 03/09/16) Uncoded Allergies: XANTHINE (Allergy, Unknown, TAKES DARVOCET AT HOME, 04/10/14) PT CLAIMS SHE CAN TOLERATE CAFFEINE Home Medications Scheduled Acetaminophen (Tylenol), 500 MG PO PRN Amiodarone Hcl (Cordarone), 200 MG PO DAILY Amlodipine Besylate (Norvasc), 2.5 MG PO DAILY Bumetanide (Bumetanide), 2 TABS PO BID Carvedilol (Coreg), 6.25 MG PO BID Cholecalciferol (Vitamin D3), 1 CAP PO DAILY Epoetin Jose R (Procrit), 40,000 UNIT INJ EVERY OTHER WEEK Levothyroxine Sodium (Synthroid), 25 MCG PO QAM Lorazepam (Ativan), 1 MG PO BID Scheduled PRN Cdlawlw-Sxaphfjmgerrz-Rcvgqrao (Migraine Relief), 1 TAB PO UD PRN for MATTHEW Problem List Medical Problems: (1) Acute on chronic kidney failure (2) Anemia (3) Chest pain (4) Dysphagia (5) Hypertension (6) Secondary hyperparathyroidism of renal origin (7) Squamous cell carcinoma (8) Tonsil cancer Surgical / Medical History Hx Cardiac Surgery: No Hx Abdominal Surgery: Yes (cholecystectomy, appendectomy, spleenectomy, pancreas cyst, hernia) Hx Cancer Surgery: No Hx Thoracic Surgery: No Hx Orthopedic: Yes (BUNIONECTOMY) Hx Urinary Tract Surgery: No Past Medical/Surgical History: Hypertension, Kidney Disease Family History Cancer Gallbladder disease Hypertension Social History Smoking Status: Never Smoker Hx Tobacco Use In Past Year?: No Hx Alcohol Use - Type & Amnt: No Hx Substance Use -Type & Amnt: No Review of Systems Constitutional: + malaise, No chills, No fever Skin: No change in color Eyes: No visual changes ENMT: No sore throat Respiratory: no complaints Cardiovascular: + edema, No chest pain, No intermittent claudication, No palpitations, No syncope Gastrointestinal: No abdominal pain, No nausea, No vomiting Genitourinary - Female: No dysuria, No hematuria Neurologic: No headache, No numbness, No weakness Physical Exam Constitutional: General Apperance: well-nourished, well-developed, too thin Level of Distress: NAD, chronically ill Psychiatric: Mental Status: active & alert, normal mood, normal affect Orientation: oriented except where noted, to time, to place, to person Memory: recent memory normal, remote memory normal Head: normocephalic, atraumatic Eyes: EOM: EOMI ENMT: normal ENT inspection, hearing grossly normal Neck: supple, trachea midline Lungs: Respiratory effort: no dyspnea Auscultation: no wheezing, no rhonchi, Cardiovascular: Apical Impulse: not displaced Heart Auscultation: RRR, no rubs, no gallops, murmur Peripheral Pulses: Pulses: full and equal, in all extremities except if noted Bruits: none appreciated Carotid Pulse: normal on the left, normal on the right Brachial Pulses: normal on the left, normal on the right Radial Pulse: normal on the left, normal on the right Femoral Pulse: normal on the left, normal on the right Posterior Tibialis Pulse: decreased on the left, decreased on the right Dorsalis Pedis Pulse: decreased on the left, decreased on the right Abdomen: Bowel Sounds: normal Inspection & Palpation: soft, non-distended, no tenderness, guarding & rebound Musculoskeletal: normal strength (5/5 throughout), normal tone Extremities: Upper Right: no cyanosis, no edema, no varicosities Upper Left: no cyanosis, no edema, no varicosities. No thrill Lower Right: no cyanosis, no varicosities, edema (trace) Lower Left: no cyanosis, no varicosities, no palpable cord, Neurologic: Cranial Nerves: grossly intact Sensation: grossly intact A&P: Vascular Con v2 Assessment and Plan ASSESSMENT and PLAN: Imp: Thrombosed LUE AV graft Plan: Patient is admitted for mechanical thrombectomy of LUE AV graft and possible permcath insertion. I have discussed the risks options and benefits of the procedure with the patient. The patient understands the risks options and benefits and agrees to the procedure. Patient was seen, examined, and chart reviewed. Agree with exam and treatment plan of the Vascular PA. I have discussed the risks options and benefits of the procedure with the patient. The patient understands the risks options and benefits and agrees to the procedure.
[2017-02-04] MEDS ORDERED: LEVO50TA PO (10:08)
[2017-02-04] MEDS ORDERED: CARV12.52 PO (10:08)
[2017-02-04] MEDS ORDERED: LEVO75TA PO (10:08)
[2017-02-04 10:21] VITALS: BP 166/77; PULSE 59; TEMP 36.8; O2SAT 95; BMI 21.0
[2017-02-04 10:29] VITALS: Ht 170.2 cm; Wt 63.0 kg
[2017-02-04] MEDS ORDERED: CLINDAMYCIN 600 MG/54 ML D5W 54 ML IV SCH (10:30)
[2017-02-04] MEDS ORDERED: MIDAZOLAM HCL 1 MG/ML 2ML VIAL ONE (11:02)
[2017-02-04] MEDS ORDERED: FENTANYL CITRATE INJ 50 MCG/1 ML 2 ML VIAL ONE (11:02)
[2017-02-04] MEDS ORDERED: HEPARIN SOD (PORCINE) 5000 UNIT/ML 1 ML VIAL ONE (11:03)
[2017-02-04] MEDS ORDERED: ATROPINE SULFATE 0.1 MG/ML 10 ML SYR ONE (11:07)
--- NOTE | 2017-02-04 11:20 | Procedure Note ---
Pre-Mod Sedation Assessment General Date of Moderate Sedation: Feb 04, 2017. Vital Signs: Vital Signs Past 12 Hours Date Time Temp Pulse Resp B/P (MAP) Pulse Ox O2 Delivery O2 Flow Rate FiO2 02/04/17 10:21 36.8 59 20 166/77 (106) 95 Room Air Pre-Sedation Airway Assessment Smoking Status: Never Smoker Mallampati Classification: Class I ASA Classification: Class III Notes The planned sedation has been discussed with the patient and consent obtained. I have identified the patient, determined the appropriateness of sedation and have assessed the patient immediately prior to the procedure. All medicine(s) and interventions are by my order.
[2017-02-04 11:33] VITALS: BP 166/77; TEMP 36.8; O2SAT 95
[2017-02-04] MEDS ORDERED: LIDOCAINE HCL 1% 20 ML VIAL INJ ONE (12:00)
[2017-02-04] MEDS ORDERED: FENTANYL CITRATE INJ 50 MCG/1 ML 2 ML VIAL IV ONE ×2 (12:01→12:17)
[2017-02-04] MEDS ORDERED: MIDAZOLAM HCL 1 MG/ML 2ML VIAL IV ONE (12:01)
[2017-02-04] MEDS ORDERED: ONDANSETRON INJ 2 MG/ML 2 ML VIAL ONE (12:21)
[2017-02-04] MEDS ORDERED: ONDANSETRON INJ 2 MG/ML 2 ML VIAL IV ONE (12:22)
[2017-02-04] MEDS ORDERED: OPTIRAY 300 INJ ONE (12:46)
[2017-02-04] MEDS ORDERED: ORM MISCELLANEOUS MED XX ONE (12:49)
--- NOTE | 2017-02-04 12:58 | [facility] Post Operative Brief Note ---
Immediate Operative Summary Operative Date Feb 04, 2017. Pre-Operative Diagnosis thrombosed left upper extremity arteriovenous graft Post-Operative Diagnosis same Procedure(s) Performed Fistulogram, Percutaneous Transluminal Angioplasty Brachial Artery, Stent Peripheral Venous, Mechanical Thrombectomy Left Upper Arm Arteriovenous Graft, Moderate Concious Sedation [address] Alonso [employer] 2[employer] Shift Surgeon(s) none Estimated Blood Loss 10 ml Findings thrombosed fistula, no stenosis Specimens none Anesthesia Local with sedation Disposition
--- NOTE | 2017-02-04 12:59 | Procedure Note ---
Post-Moderate Sedation Plan General Date of Moderate Sedation Feb 04, 2017. Vital Signs: Vital Signs Past 12 Hours Date Time Temp Pulse Resp B/P (MAP) Pulse Ox O2 Delivery O2 Flow Rate FiO2 02/04/17 10:21 36.8 59 20 166/77 (106) 95 Room Air Review - Discharge Plan Post Moderate Sedation Plan: On clinical assessment, the patient appears to have tolerated the conscious sedation without complications. Patient is recovering as anticipated. Patient will continue to be monitored by nursing and may be discharged when conscious sedation discharge criteria are met.
--- NOTE | 2017-02-04 13:02 | Discharge Instructions ---
Discharge Instructions Date of Service Feb 04, 2017. Visit Reason for Visit: Clotted Left Upper Arm Anteriovenous Graft Discharge Discharge Diagnosis / Problem: Thrombosed left upper arm access Discharge Goals Goal(s): Therapeutic intervention Activity Recommendations Activity Limitations: resume your previous activity Anesthesia . Post Anesthesia Instructions: If you have had General Anesthesia or IV Sedation: * Do not drive today. * Resume driving when surgeon permits. * Do not make important decisions or sign legal documents today. * Call surgeon for: 1. Temperature elevations greater than 101 degrees F. 2. Uncontrollable pain. 3. Excessive bleeding. 4. Persistent nausea and vomiting. 5. Medication intolerance (nausea, vomiting or rash). * For nausea and vomiting use only clear liquids such as: tea, soda, bouillon until nausea subsides, then gradually increase diet as tolerated. * If you have any concerns or questions, call your surgeon's office. If physician is unavailable and it is an emergency, call 911 or go to the nearest emergency room. . Instructions / Follow-Up Instructions / Follow-Up Call [phone] with any questions or concerns. Take this to dialysis with you today May use fistula for dialysis SPECIAL CARE INSTRUCTIONS: Medications: * Continue to take your medications as directed. If you have been given a prescription for Plavix, please fill it immediately and take as directed. Incision Care: * Your puncture site may have some bruising and minor swelling for about one week. * You will have a small dressing covering your puncture site. You may remove the dressing after 24 hours and shower. You may let the warm soapy water run over it, but be sure to dry the puncture site well and keep it dry. * DO NOT IMMERSE THE INCISION IN A TUB/POOL/etc. UNTIL HEALED. * Puncture sites should be kept covered with a band-aid until it begins to heal. Restrictions: * Depending on whether you leg or arm was punctured to access the arteries, you will be required to lay flat, hold your arm still, or both, for about 4 hours after the procedure to prevent bleeding. * Limit your activity for the first 48 hours. You may walk and go up and down steps. Avoid excessive bending or movement at the puncture site. Possible Complications: * Excessive Swelling - after blood flow is improved you may notice increased swelling in the lower legs. This is a normal response. This usually depends on the amount of blockages in the leg, how long they have been there prior to your procedure and how much blood flow was restored. Elevating your legs will help to improve this. Please notify our office ([phone] ) if the swelling does not go away after lying in bed overnight. * Infection/Drainage/Bleeding - Drainage or bleeding from the puncture site should be minimal. If you have excessive bleeding or drainage, call our office ([phone]) right away. * Pain - You may experience some mild pain or soreness at your puncture site. If your pain does not improve, please contact our office ([phone]). Call your doctor and seek emergent treatment if you develop: * Temperature above 101 degrees * Any fever or chills * Any redness or purulent drainage from the puncture site * Any new dusky/blue colored toes or feet with coolness or sharp or aching pain. SKIN IRRITATION: * You may experience some redness and/or swelling in the area where radiation was administered. If any skin irritation occurs, please contact your family physician. FOLLOW UP VISIT: Keep any scheduled doctor appointments. Diet Recommendations Recommended Home Diet: resume previous diet Procedures Procedures Performed: Fistulogram, Percutaneous Transluminal Angioplasty Brachial Artery, Stent Peripheral Venous, Mechanical Thrombectomy Left Upper Arm Arteriovenous Graft, Moderate Concious Sedation 1201 to 1255 Pending Studies Studies pending at discharge: no Medical Emergencies . Who to Call and When: Medical Emergencies: If at any time you feel your situation is an emergency, please call 911 immediately. . Non-Emergent Contact Non-Emergency issues call your: Surgeon . . "Provider Documentation" section prepared by Duke Alonso. .
[2017-02-04 13:05] VITALS: BP_SYST 140; BP_SYST 143; BP_DIAS 64; BP_DIAS 73; PULSE 55; PULSE 56; TEMP 36.4; O2SAT 91; O2SAT 94
--- NOTE | 2017-02-04 14:00 | DIAGNOSTIC IMAGING REPORT ---
DATE OF PROCEDURE: 02/04/2017 PREOPERATIVE DIAGNOSIS: Thrombosed left upper arm access. POSTOPERATIVE DIAGNOSIS: Same. PROCEDURES: 1. Mechanical thrombectomy, left upper arm access. 2. Fistulogram. 3. Stenting of venous outflow. 4. Balloon angioplasty of the brachial artery. 5. Conscious sedation 54 minutes. SURGEON: Dr. Alonso. ANESTHETIC: Local with conscious sedation. PROCEDURE INDICATIONS: The patient is a 81-year-old female who was found to have a clotted graft on Saturday. Thrombectomy was recommended. She however did not want to go anywhere else except [facility] for the procedure. Therefore, we scheduled it for Saturday. The patient understood that it would be harder to declot the graft, the longer it stayed clotted. She understood and still agreed to go ahead with the procedure on Saturday. PROCEDURE IN DETAIL: The patient was taken to the angiogram suite and placed in supine position. After the left arm was prepped and draped in a sterile manner, local anesthetic was administered. Percutaneous puncture was made in the left upper arm [place] access proximally. A 6-[place] sheath was inserted. An 0.035 wire was passed through the fistula. It passed very easily through the clot. A small amount of contrast was then instilled which showed the clot present. Beyond the venous anastomosis, it appeared to be patent. A Proxi AngioJet catheter was then inserted and a mechanical thrombectomy was performed from the venous anastomosis down to where the puncture site was, just proximal to the arterial anastomosis. After the first run, there was very minimal amount of clot still present. A second run was done. No residual clot was seen after the second run. A retrograde puncture was then made just proximal to the venous anastomosis. A 6-[place]onegas[place] sheath was inserted that away. The wire was then passed down through the arterial anastomosis. Mechanical thrombectomy, again using the Proxi catheter was then accomplished. There were 2 areas of clot which remain. One was just passed the arterial anastomosis and the other slightly more distally. The more proximal piece could not be emulsified. It was decided to stent over this with a short Viabahn stent, being that it is not in an area of puncture. The 6-Monegasque sheath was then exchanged to a 7-[place]onegasque. An 0.018 wire was inserted. A 7 x 2-1/2 Viabahn was then inserted and deployed, placing the residual fibrin or clot in the mid portion of the stent. This was then ballooned with a 6 x 4 [place] balloon. No residual stenosis was seen at that time. Next, the wire was exchanged to an 0.014 wire and using a 3 x 2 balloon, an area in the brachial artery which appeared to have web-like narrowing just beyond the arterial anastomosis was then dilated. This may have been a clamp injury during the fistula creation. There was approximately 10% residual after the brachial artery was dilated. There was a good thrill in the fistula. Both sheaths were then pulled. Pressure was applied. Adequate hemostasis was obtained. The patient left the angio suite in good condition and tolerated the procedure well. KARTHIKEYAN
[2017-02-04 14:05] VITALS: BP 140/81; PULSE 58; TEMP 36.1; O2SAT 93
[2017-02-04] MEDS ORDERED: NURSING VERBAL MED ORDER ONE (14:15)
[2017-02-04] MEDS ORDERED: ONDANSETRON 4MG OD TAB ONE (14:22)
[2017-02-04 14:35] VITALS: BP 141/77; PULSE 57; TEMP 36.3; O2SAT 94
== END 2017-02-04 14:35 | disposition home or self-care (01) ==
LOC: C.ACU 09:26
PROVIDERS: ATTEND Surgery Vascular Surgery
DX: T82.590A Other mechanical complication of surgically created arteriovenous fistula, initial encounter (principal); N18.6 End stage renal disease; Y82.8 Other medical devices associated with adverse incidents; I12.0 Hypertensive chronic kidney disease with stage 5 chronic kidney disease or end stage renal disease; N25.81 Secondary hyperparathyroidism of renal origin; Z85.820 Personal history of malignant melanoma of skin; Z90.49 Acquired absence of other specified parts of digestive tract; Z90.89 Acquired absence of other organs; Z90.81 Acquired absence of spleen; Z82.49 Family history of ischemic heart disease and other diseases of the circulatory system

== ENCOUNTER → 2017-10-31 | Outpatient (CLI) | payer OTHER ==
[~2017-10-31] MED LIST changes: +CARV12.52 PO; -CRG125 PO; +LEVO50TA PO; +LEVO75TA PO; -SYN50 PO; -SYN75 PO
[2017-10-31 12:26] LABS: BASO % 0.3 %; BASO ABS # 0.02 K/uL (0-0.2); EOS % 2.3 %; EOS ABS # 0.14 K/uL (0-0.5); HEMATOCRIT 35.4 % (37-47); HEMOGLOBIN 11.4 g/dL (12.0-16.0); IG# 0.03 K/uL (0.00-0.02); LYMPH % 11.1 %; LYMPH ABS # 0.68 K/uL (1.2-3.4); MEAN CELL VOLUME 98.6 fL (80-100); MEAN CORPUSCULAR HEMOGLOBIN 31.8 pg (25-34); MEAN CORPUSCULAR HGB CONC 32.2 g/dl (32-36); MEAN PLATELET VOLUME 9.3 fL (7.4-10.4); MONO % 17.7 %; MONO ABS # 1.08 K/uL (0.11-0.59); NEUT % 68.1 %; NEUT ABS # 4.15 K/uL (1.4-6.5); NUCLEATED RED BLOOD CELL ABS 0.03 K/uL (0-0); PLATELET COUNT 313 K/uL (130-400); RED CELL DISTRIBUTION WIDTH CV 16.1 % (11.5-14.5); RED CELL DISTRIBUTION WIDTH SD 57.3 fL (36.4-46.3)
[2017-10-31 12:58] LABS: ALBUMIN 3.1 gm/dl (3.4-5.0); ALKALINE PHOSPHATASE 75 U/L (45-117); ALT/SGPT 12 U/L (12-78); AST/SGOT 13 U/L (15-37); BLOOD UREA NITROGEN 24 mg/dl (7-18); CALCIUM 8.8 mg/dl (8.5-10.1); CARBON DIOXIDE 33 mmol/L (21-32); CHOLESTEROL 192 mg/dl (0-200); CREATININE 5.27 mg/dl (0.60-1.20); GLUCOSE 117 mg/dl (70-99); LDL CHOLESTEROL CALCULATED 102 mg/dl; POTASSIUM 3.5 mmol/L (3.5-5.1); SODIUM 134 mmol/L (136-145); TOTAL PROTEIN 6.7 gm/dl (6.4-8.2)
== END | disposition home or self-care (01) ==
LOC: C.LAB1850 10:14
PROVIDERS: ATTEND Internal Medicine
DX: I42.9 Cardiomyopathy, unspecified (principal); I48.0 Paroxysmal atrial fibrillation; I12.0 Hypertensive chronic kidney disease with stage 5 chronic kidney disease or end stage renal disease; N18.6 End stage renal disease; E78.5 Hyperlipidemia, unspecified; E03.9 Hypothyroidism, unspecified; I35.0 Nonrheumatic aortic (valve) stenosis; I50.22 Chronic systolic (congestive) heart failure

== ENCOUNTER 2018-02-10 14:22 | Emergency (ER) | payer OTHER ==
[~2018-02-10 14:22] MED LIST changes: +AZEL0.15 NAE
--- NOTE | 2018-02-10 14:25 | EMERGENCY ROOM VISIT NOTE ---
History Report prepared by Boo: Alyas Caicedo Under the Supervision of: Dr. Bereket Eugene M.D. First contact with patient: 14:21 Stated Complaint: cardiac arrest History of Present Illness The patient is a 79 year old male who presents to the Emergency Room with cardiac arrest happening at least a half hour prior to arrival. Per EMS, the patient was actively in a dialysis treatment then went into cardiac arrest. Per EMS, the patient was shocked once and in PEA. EMS states that the patient was given bicarbonate, calcium, 800 CCs of fluid, and 5 rounds of epinephrine. EMS states that the patient was last given epinephrine 3-4 minutes prior to arrival. Per EMS, the patient's end tidal CO2 has been in the 30s and 40s. EMS states that CPR compressions were started at least 30 minutes prior to arrival. Per EMS, 1340 was the time that 911 was called. Limited HPI secondary to cardiac arrest. Source of History: EMS History Limited By: cardiac arrest Onset: at least a half hour prior to arrival Position: other (generalized) Quality: other (cardiac arrest) Review of Systems Limited ROS secondary to cardiac arrest. 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 Family History Cancer Gallbladder disease Hypertension Social History Marital Status: Current/Historical Medications Scheduled Amiodarone Hcl (Cordarone), 200 MG PO QAM Aspirin (Aspirin 81), 81 MG PO QAM Azelastine Hcl (Astepro), 2 SPRY MARYANA BID B-Complex W/ C & Folic Acid (Latimer Caps), 1 CAP PO HS Calcium Carbonate (Tums), 1,000 MG PO TID Carvedilol (Coreg), 18.75 MG PO BID Cholecalciferol (Vitamin D3), 1 CAP PO 3XWK Docusate Sodium (Colace), 1 CAP PO QPM Levothyroxine Sodium (Synthroid), 1 TAB PO DIRECTED Levothyroxine Sodium (Synthroid), 1 TAB PO DIRECTED Scheduled PRN Acetaminophen (Tylenol), 500 MG PO DIRECTED PRN for Pain Lorazepam (Ativan), 1 MG PO TID PRN for Anxiety/Agitation Allergies Coded Allergies: Amoxicillin (Verified Allergy, Severe, UNKOWN, 12/06/17) Clavulanic Acid (Verified Allergy, Severe, UNKOWN, 12/06/17) Nortriptyline (Verified Allergy, Severe, UNKNOWN, 12/06/17) Vancomycin (Verified Allergy, Severe, ANAPHYLAXIS, 12/31/17) Aloe (Verified Allergy, Intermediate, rash, 12/06/17) Amitriptyline (Verified Allergy, Unknown, unknown, 12/06/17) Amlodipine (Verified Allergy, Unknown, UNKNOWN, 12/06/17) Atorvastatin (Verified Allergy, Unknown, 12/06/17) Azathioprine (Verified Allergy, Unknown, 12/06/17) Barbiturates (Verified Allergy, Unknown, TAKES DARVOCET AT HOME, 12/06/17) Beta Adrenergic Blockers (Verified Allergy, Unknown, -, 12/06/17) Butalbital (Verified Allergy, Unknown, TAKES DARVOCET AT HOME, 12/06/17) Cefaclor (Verified Allergy, Unknown, RECEIVED ANCEF PREOP IN OR (08/05/12) , 12/06/17) Cefuroxime (Verified Allergy, Unknown, UNKNOWN, 12/06/17) Cephalosporins (Verified Allergy, Unknown, 12/06/17) Chlorpheniramine (Verified Allergy, Unknown, 12/06/17) Cholestyramine (Verified Allergy, Unknown, 12/06/17) Ciprofloxacin (Verified Allergy, Unknown, redness and swelling, 12/06/17) Clonidine (Verified Allergy, Unknown, unknown, 12/06/17) Codeine (Verified Allergy, Unknown, TAKES DARVOCET AT HOME, 12/06/17) Dextromethorphan (Verified Allergy, Unknown, TAKES DARVOCET AT HOME, ) Diltiazem (Verified Allergy, Unknown, 12/06/17) Escitalopram (Verified Allergy, Unknown, 12/06/17) Estrogens (Verified Allergy, Unknown, 12/06/17) Felodipine (Verified Allergy, Unknown, 12/06/17) Ferrous Sulfate (Verified Allergy, Unknown, UNKNOWN, 12/06/17) Hydralazine (Verified Allergy, Unknown, unknown, 12/06/17) Hydrochlorothiazide (Verified Allergy, Unknown, 12/06/17) Hydrocodone (Verified Allergy, Unknown, TAKES DARVOCET AT HOME, 12/06/17) Hydrocortisone (Verified Allergy, Unknown, unknown, 12/06/17) Hydromorphone (Verified Allergy, Unknown, hallucinations, 12/06/17) Ibuprofen (Verified Allergy, Unknown, TAKES EC ASA AT HOME, 12/06/17) Indapamide (Verified Allergy, Unknown, 12/06/17) Ipratropium (Verified Allergy, Unknown, UNKNOWN, 12/06/17) Isosorbide Nitrate (Verified Allergy, Unknown, UNKNOWN, 12/06/17) Ketoconazole (Verified Allergy, Unknown, unknown, 12/06/17) Lisinopril (Verified Allergy, Unknown, 12/06/17) Losartan (Verified Allergy, Unknown, 12/06/17) Mesalamine (Verified Allergy, Unknown, 12/06/17) Methyltestosterone (Verified Allergy, Unknown, 12/06/17) Metoprolol (Verified Allergy, Unknown, 12/06/17) NSAIDs (Verified Allergy, Unknown, though takes ecotrin at home, 12/06/17) Olsalazine (Verified Allergy, Unknown, 12/06/17) Phenylpropanolamine (Verified Allergy, Unknown, 12/06/17) Pilocarpine (Verified Allergy, Unknown, UNKNOWN, 12/06/17) Progestins (Verified Allergy, Unknown, 12/06/17) Propranolol (Verified Allergy, Unknown, UNKNOWN, 12/06/17) Propylene Glycol (Verified Allergy, Unknown, 12/06/17) Rabeprazole (Verified Allergy, Unknown, 12/06/17) Sertraline (Verified Allergy, Unknown, UNKNOWN, 12/06/17) Simvastatin (Verified Allergy, Unknown, 12/06/17) Sulfa Antibiotics (Verified Allergy, Unknown, UNKNOWN, 12/06/17) Sulfacetamide (Verified Allergy, Unknown, 12/06/17) Sulfur (Verified Allergy, Unknown, 12/06/17) Terazosin (Verified Allergy, Unknown, 12/06/17) Terfenadine (Verified Allergy, Unknown, 12/06/17) Torsemide (Verified Allergy, Unknown, UNKNOWN, 12/06/17) Tramadol (Verified Allergy, Unknown, unknown, 12/06/17) Triamterene (Verified Allergy, Unknown, 12/06/17) Verapamil (Verified Allergy, Unknown, 12/06/17) Clindamycin (Verified Adverse Reaction, Intermediate, GI SYMPTOMS, 12/31/17 ) Calcium Acetate (Verified Adverse Reaction, Mild, CONSTIPATION, 12/06/17) Uncoded Allergies: XANTHINE (Allergy, Unknown, TAKES DARVOCET AT HOME, 04/10/14) PT CLAIMS SHE CAN TOLERATE CAFFEINE renvelo (Adverse Reaction, Severe, GI SYMPTOMS, 12/31/17) Physical Exam Vital Signs Date Time Temp Pulse Resp B/P (MAP) Pulse Ox O2 Delivery O2 Flow Rate FiO2 02/10/18 14:30 0 0 0/0 0 Physical Exam GENERAL: Ill-appearing, in cardiac arrest. HENT: Atraumatic/normocephalic, Intubated EYES: Pupils are fixed and dilated. No corneal or oculocephalic reflex. NECK: Trachea midline RESPIRATORY: b/l Rhonchi with manual ventilation. CARDIAC: Pulseless, Pale, cool extremities. ABDOMEN: Non-distended, no discoloration MUSCULOSKELETAL: BRETT CPR in-progress. EXTREMITIES: Non-edematous. No pulses. NEURO: Absent corneal/oculocephalic reflex. SKIN: Cool and clammy. Pulseless. Medical Decision & Procedures ER Provider Diagnostic Interpretation: Bedside Ultrasound: No pericardial effusion. No cardiac activity. ED Course 1422: The patient was evaluated in room A1. A complete history and physical exam was performed. 1428: The patient . 1438: I spoke to the patient's spudder and POA, and informed her. She states that she has a list of people she is supposed to contact and she will work on that. She thanked us for contacting her. Medical Decision I reviewed the patient's past medical history, medications, and the nursing notes as described above. Differential diagnosis: Etiologies such as cardiac ischemia, aortic dissection, pulmonary embolism, pneumonia, pneumothorax, musculoskeletal, infections, pericarditis, myocarditis , esophageal rupture, gastrointestinal, as well as others were entertained. The patient is a 82 year-old woman with past medical history of end-stage renal disease on HD since emergency department after developing cardiac arrest at her dialysis center initially found to be in asystole by EMS and subsequently a bradycardic PEA was given 5 rounds of epinephrine, calcium, bicarb, with no improvement per hpi. On arrival the patient continues to be in cardiac arrest with PEA, she was given dose of epinephrine and calcium with continued CPR, upon pulse check PA persisted with bradycardic waveform on the monitor however with no pulses and no cardiac activity on bedside echo. Given the patient's comorbidities, age and prolonged asystole PEA arrest unlikely to have quality outcome, if at all. Patient had no neurologic function on arrival with unresponsive pupils, no corneal or oculocephalic reflex. Decision was made to discontinue resuscitation and patient was pronounced at 1428. Patient's power of brush filler hand was contacted and she was informed of the patient's presentation and . She was appreciative of our work and for contacting her. Reports she has a list of people she is to contact in the event of this occurring. Case management assisting with arrangements and follow-up individuals close to the patient, per report center the patient has no family at this time. Impression Primary Impression: Cardiac arrest Additional Impression: PEA (Pulseless electrical activity) Critical Care I have personally spent greater than 30 minutes of critical care time in the direct management of this patient. This includes bedside care, interpretation of diagnostic studies, and testing, discussion with consultants, patient, and family members, and other required patient management activities. This 30 minutes is in excess of all separately billable procedures. Scribe Attestation The scribe's documentation has been prepared under my direction and personally reviewed by me in its entirety. I confirm that the note above accurately reflects all work, treatment, procedures, and medical decision making performed by me. Departure Information Dispostion Problem Qualifiers
[2018-02-10] MEDS ORDERED: CALCIUM CHLORIDE 10% 10 ML SYR IV ONE (14:29)
[2018-02-10 14:30] VITALS: BP 0/0; PULSE 0; O2SAT 0
== END 2018-02-10 15:30 | disposition expired ==
LOC: EDBD 14:22 → EDSEX 14:22 → C.EDA 14:28
DX: I46.9 Cardiac arrest, cause unspecified (principal); I50.9 Heart failure, unspecified; I13.11 Hypertensive heart and chronic kidney disease without heart failure, with stage 5 chronic kidney disease, or end stage renal disease; N18.5 Chronic kidney disease, stage 5; Z99.2 Dependence on renal dialysis; Z79.82 Long term (current) use of aspirin; Z88.0 Allergy status to penicillin; Z88.1 Allergy status to other antibiotic agents; Z91.048 Other nonmedicinal substance allergy status; Z88.8 Allergy status to other drugs, medicaments and biological substances; Z88.6 Allergy status to analgesic agent; Z88.2 Allergy status to sulfonamides; Z82.49 Family history of ischemic heart disease and other diseases of the circulatory system